=== PATIENT | male | born 1960 | race Caucasian/White ===

== ENCOUNTER 2020-03-17 12:05 | Outpatient (REF) | payer MEDICARE, MEDICAID, SELFPAY ==
[2020-03-17 13:27] LABS: MANUAL DIFF FLAG NO
[2020-03-17 13:39] LABS: Basophils Percent Auto 0.3 % (0-2); Eosinophils Percent Auto 0.7 % (0-4); Hematocrit 45.5 % (42-52); Hemoglobin 15.4 g/dl (14.0-18.0); Imm Gran Abs Auto 0.03 X10*3/uL (0.00-0.03); Imm Gran Pct Auto 0.5 % (0.0-0.4); Lymphocytes Absolute Auto 1.2 X10*3/uL (1.2-4.9); Lymphocytes Percent Auto 19.6 % (20-40); Mean Corpuscular HGB Conc 33.8 g/dl (31.0-36.0); Mean Corpuscular Hemoglobin 31.2 pg (27.0-33.0); Mean Corpuscular Volume 92.1 fL (80-98); Mean Platelet Volume 10.4 fL (9.4-12.4); Monocytes Absolute Auto 0.6 X10*3/uL (0.1-1.2); Monocytes Percent Auto 9.6 % (2-11); Neutrophils Absolute Auto 4.2 X10*3/uL (2.0-8.3); Neutrophils Percent Auto 69.3 % (45-73); Platelet Count 192 X10*3/uL (160-400); Red Blood Count 4.94 X10*6/uL (4.60-5.80); Red Cell Distribution Width 12.5 % (11.0-16.0); White Blood Count 6.1 X10*3/uL (4.8-10.8)
[2020-03-17 13:45] LABS: Estimated Average Glucose 131 mg/dL; Hemoglobin A1c % 6.2 %
[2020-03-17 13:58] LABS: Glucose Urine UA NEG (NEG); Leukocyte Esterase Urine NEG (NEG); Nitrite Urine NEG (NEG); PH 6.5 (5.0-8.0); Specific Gravity - Urine 1.025 (1.005-1.025); Urine Blood NEG (NEG); Urine Ketones NEG (NEG); Urine Protein 2+ MG/DL (NEG-TRACE)
[2020-03-17 14:01] LABS: Appearance Urine HAZY; Color Urine YELLOW
[2020-03-17 14:05] LABS: Alanine Aminotransferase 20 U/L (0-40); Albumin Level 4.8 g/dL (3.5-5.0); Alkaline Phosphatase 38 U/L (39-117); Anion Gap 12 (12-20); Aspartate Amino Transferase 17 U/L (5-37); Bilirubin Total 0.5 mg/dL (0.0-1.0); Blood Urea Nitrogen 11 mg/dL (9-16); Calcium 9.1 mg/dL (8.4-10.2); Carbon Dioxide 27 mmol/L (22-29); Chloride 101 mmol/L (96-108); Cholesterol 194 mg/dL; Estimated Glomerular Filt Rate > 60; Glucose Fasting 132 mg/dL (60-99); HDL Cholesterol 44 mg/dL; LDL Cholesterol Calculated 133 mg/dl; Potassium 4.4 mmol/l (3.3-5.1); Sodium 136 mmol/L (135-145); Total Protein 7.5 g/dL (6.5-8.0); Triglycerides 89 mg/dL
[2020-03-17 14:08] LABS: Mucus Urine 3+ /LPF; RBC Urine 0 /HPF (0); Squamous Epithelial Cell Urine 1+ /LPF; WBC Urine 0 /HPF (0-4)
[2020-03-17 14:28] LABS: TSH reflex Free T4 0.66 mIU/mL (0.32-4.0)
[2020-03-17 14:43] LABS: Creatinine Urine 256.22 mg/dL
[2020-03-17 14:46] LABS: Microalbum/Creatinine Ratio Ur 216.6 ug/mg cr
== END 2020-03-17 12:06 | disposition home or self-care (01) ==
LOC: HO.LAB 12:05
PROVIDERS: Visit Provider Internal Medicine
DX: E11.9 Type 2 diabetes mellitus without complications (principal); I10 Essential (primary) hypertension; E78.5 Hyperlipidemia, unspecified; E87.1 Hypo-osmolality and hyponatremia; F20.3 Undifferentiated schizophrenia; E66.9 Obesity, unspecified; F17.200 Nicotine dependence, unspecified, uncomplicated
CPT/HCPCS: 36415; 80053; 80061; 81001; 82043; 83036; 84443; 85025

== ENCOUNTER 2020-06-13 12:08 | Outpatient (REF) | payer MEDICARE, MEDICAID, SELFPAY ==
[2020-06-13 12:45] LABS: MANUAL DIFF FLAG NO
[2020-06-13 12:50] LABS: Basophils Percent Auto 0.2 % (0-2); Eosinophils Percent Auto 0.9 % (0-4); Hematocrit 42.3 % (42-52); Hemoglobin 14.4 g/dl (14.0-18.0); Imm Gran Abs Auto 0.01 X10*3/uL (0.00-0.03); Imm Gran Pct Auto 0.2 % (0.0-0.4); Lymphocytes Absolute Auto 1.2 X10*3/uL (1.2-4.9); Lymphocytes Percent Auto 27.7 % (20-40); Mean Corpuscular Hemoglobin 31.2 pg (27.0-33.0); Mean Corpuscular Volume 91.6 fL (80-98); Mean Platelet Volume 10.4 fL (9.4-12.4); Monocytes Absolute Auto 0.5 X10*3/uL (0.1-1.2); Monocytes Percent Auto 10.6 % (2-11); Neutrophils Absolute Auto 2.6 X10*3/uL (2.0-8.3); Neutrophils Percent Auto 60.4 % (45-73); Platelet Count 174 X10*3/uL (160-400); Red Blood Count 4.62 X10*6/uL (4.60-5.80); Red Cell Distribution Width 12.5 % (11.0-16.0); White Blood Count 4.3 X10*3/uL (4.8-10.8)
[2020-06-13 13:05] LABS: Glucose Urine UA NEG (NEG); Leukocyte Esterase Urine NEG (NEG); Nitrite Urine NEG (NEG); Specific Gravity - Urine 1.015 (1.005-1.025); Urine Blood NEG (NEG); Urine Ketones NEG (NEG); Urine Protein NEG (NEG-TRACE)
[2020-06-13 13:17] LABS: Appearance Urine CLEAR; Color Urine YELLOW
[2020-06-13 13:30] LABS: Alanine Aminotransferase 15 U/L (0-40); Albumin Level 4.5 g/dL (3.5-5.0); Alkaline Phosphatase 37 U/L (39-117); Anion Gap 11 (12-20); Aspartate Amino Transferase 15 U/L (5-37); Bilirubin Total 0.5 mg/dL (0.0-1.0); Blood Urea Nitrogen 11 mg/dL (9-16); Calcium 8.9 mg/dL (8.4-10.2); Carbon Dioxide 27 mmol/L (22-29); Chloride 103 mmol/L (96-108); Cholesterol 172 mg/dL; Estimated Glomerular Filt Rate > 60; Glucose Fasting 143 mg/dL (60-99); HDL Cholesterol 44 mg/dL; LDL Cholesterol Calculated 116 mg/dl; Potassium 4.3 mmol/L (3.3-5.1); Sodium 137 mmol/L (135-145); Total Protein 7.3 g/dL (6.5-8.0); Triglycerides 63 mg/dL
[2020-06-13 13:31] LABS: Creatinine Urine 72.35 mg/dL; Microalbum/Creatinine Ratio Ur 15.2 ug/mg cr
[2020-06-13 13:54] LABS: TSH reflex Free T4 0.77 uIU/mL (0.32-4.0)
== END 2020-06-13 12:09 | disposition home or self-care (01) ==
LOC: HO.LAB 12:08
PROVIDERS: PCP Internal Medicine; Visit Provider Internal Medicine
DX: I10 Essential (primary) hypertension (principal); E87.1 Hypo-osmolality and hyponatremia; E11.9 Type 2 diabetes mellitus without complications; E78.2 Mixed hyperlipidemia; E66.9 Obesity, unspecified; F17.200 Nicotine dependence, unspecified, uncomplicated
CPT/HCPCS: 36415; 80053; 80061; 81003; 82043; 84443; 85025

== ENCOUNTER 2020-09-11 12:22 | Outpatient (REF) | payer MEDICARE, MEDICAID, SELFPAY ==
[2020-09-11 13:09] LABS: MANUAL DIFF FLAG NO
[2020-09-11 13:11] LABS: Glucose Urine UA NEG (NEG); Leukocyte Esterase Urine NEG (NEG); Nitrite Urine NEG (NEG); Urine Blood NEG (NEG); Urine Ketones NEG (NEG); Urine Protein NEG (NEG-TRACE)
[2020-09-11 13:14] LABS: Appearance Urine CLEAR; Color Urine YELLOW
[2020-09-11 13:20] LABS: Basophils Percent Auto 0.2 % (0-2); Eosinophils Percent Auto 0.7 % (0-4); Hematocrit 42.7 % (42-52); Hemoglobin 14.5 g/dl (14.0-18.0); Imm Gran Abs Auto 0.02 X10*3/uL (0.00-0.03); Imm Gran Pct Auto 0.4 % (0.0-0.4); Lymphocytes Absolute Auto 0.9 X10*3/uL (1.2-4.9); Lymphocytes Percent Auto 16.3 % (20-40); Mean Corpuscular Hemoglobin 30.9 pg (27.0-33.0); Mean Corpuscular Volume 90.9 fL (80-98); Mean Platelet Volume 10.6 fL (9.4-12.4); Monocytes Absolute Auto 0.6 X10*3/uL (0.1-1.2); Monocytes Percent Auto 10.8 % (2-11); Neutrophils Absolute Auto 3.9 X10*3/uL (2.0-8.3); Neutrophils Percent Auto 71.6 % (45-73); Platelet Count 144 X10*3/uL (160-400); Red Cell Distribution Width 12.5 % (11.0-16.0); White Blood Count 5.5 X10*3/uL (4.8-10.8)
[2020-09-11 13:30] LABS: Alanine Aminotransferase 15 U/L (0-40); Albumin Level 4.3 g/dL (3.5-5.0); Alkaline Phosphatase 38 U/L (39-117); Anion Gap 10 (12-20); Aspartate Amino Transferase 13 U/L (5-37); Bilirubin Total 0.7 mg/dL (0.0-1.0); Blood Urea Nitrogen 11 mg/dL (9-16); Calcium 9.5 mg/dL (8.4-10.2); Carbon Dioxide 28 mmol/L (22-29); Chloride 98 mmol/L (96-108); Cholesterol 171 mg/dL; Estimated Glomerular Filt Rate > 60; Glucose Fasting 144 mg/dL (60-99); HDL Cholesterol 44 mg/dL; LDL Cholesterol Calculated 108 mg/dl; Sodium 132 mmol/L (135-145); Total Protein 7.1 g/dL (6.5-8.0); Triglycerides 98 mg/dL
[2020-09-11 13:48] LABS: Estimated Average Glucose 137 mg/dL; Hemoglobin A1c % 6.4 %
[2020-09-11 13:53] LABS: TSH reflex Free T4 0.59 uIU/mL (0.32-4.0); Vitamin D 25-OH Total 30.9 ng/mL (>30)
[2020-09-11 13:59] LABS: Creatinine Urine 98.16 mg/dL; Microalbum/Creatinine Ratio Ur 30.5 ug/mg cr
== END 2020-09-11 12:23 | disposition home or self-care (01) ==
LOC: HO.LAB 12:22
PROVIDERS: PCP Internal Medicine; Visit Provider Internal Medicine
DX: I10 Essential (primary) hypertension (principal); F20.9 Schizophrenia, unspecified; E87.1 Hypo-osmolality and hyponatremia; E11.9 Type 2 diabetes mellitus without complications; E78.2 Mixed hyperlipidemia; E66.9 Obesity, unspecified; E55.9 Vitamin D deficiency, unspecified; F17.200 Nicotine dependence, unspecified, uncomplicated
CPT/HCPCS: 36415; 80053; 80061; 81003; 82043; 82306; 83036; 84443; 85025

== ENCOUNTER 2020-12-26 11:56 | Outpatient (REF) | payer MEDICARE, MEDICAID, SELFPAY ==
[2020-12-26 13:15] LABS: MANUAL DIFF FLAG NO
[2020-12-26 13:25] LABS: Appearance Urine CLEAR; Color Urine YELLOW; Glucose Urine UA NEG (NEG); Leukocyte Esterase Urine NEG (NEG); Nitrite Urine NEG (NEG); PH 7.5 (5.0-8.0); Urine Blood NEG (NEG); Urine Ketones NEG (NEG); Urine Protein TRACE MG/DL (NEG-TRACE)
[2020-12-26 13:29] LABS: Basophils Percent Auto 0.2 % (0-2); Eosinophils Absolute Auto 0.1 X10*3/uL (0.0-0.4); Eosinophils Percent Auto 1.2 % (0-4); Hematocrit 41.4 % (42-52); Hemoglobin 14.1 g/dl (14.0-18.0); Imm Gran Abs Auto 0.01 X10*3/uL (0.00-0.03); Imm Gran Pct Auto 0.2 % (0.0-0.4); Lymphocytes Absolute Auto 1.2 X10*3/uL (1.2-4.9); Lymphocytes Percent Auto 21.6 % (20-40); Mean Corpuscular HGB Conc 34.1 g/dl (31.0-36.0); Mean Corpuscular Hemoglobin 30.9 pg (27.0-33.0); Mean Corpuscular Volume 90.6 fL (80-98); Monocytes Absolute Auto 0.6 X10*3/uL (0.1-1.2); Neutrophils Absolute Auto 3.8 X10*3/uL (2.0-8.3); Neutrophils Percent Auto 66.8 % (45-73); Platelet Count 186 X10*3/uL (160-400); Red Blood Count 4.57 X10*6/uL (4.60-5.80); Red Cell Distribution Width 13.2 % (11.0-16.0); White Blood Count 5.6 X10*3/uL (4.8-10.8)
[2020-12-26 13:36] LABS: Estimated Average Glucose 120 mg/dL; Hemoglobin A1c % 5.8 %
[2020-12-26 13:37] LABS: Alanine Aminotransferase 11 U/L (0-40); Albumin Level 4.4 g/dL (3.5-5.0); Alkaline Phosphatase 37 U/L (39-117); Anion Gap 14 (12-20); Aspartate Amino Transferase 13 U/L (5-37); Bilirubin Total 0.6 mg/dL (0.0-1.0); Blood Urea Nitrogen 13 mg/dL (9-16); Calcium 9.6 mg/dL (8.4-10.2); Carbon Dioxide 22 mmol/L (22-29); Chloride 105 mmol/L (96-108); Cholesterol 158 mg/dL; Estimated Glomerular Filt Rate 60; Glucose Fasting 144 mg/dL (60-99); HDL Cholesterol 37 mg/dL; LDL Cholesterol Calculated 104 mg/dl; Potassium 4.1 mmol/L (3.3-5.1); Sodium 137 mmol/L (135-145); Total Protein 7.3 g/dL (6.5-8.0); Triglycerides 89 mg/dL
[2020-12-26 14:01] LABS: TSH reflex Free T4 0.74 uIU/mL (0.32-4.0); Vitamin D 25-OH Total 34.2 ng/mL (>30)
[2020-12-26 14:28] LABS: Creatinine Urine 101.25 mg/dL; Microalbum/Creatinine Ratio Ur 97.7 ug/mg cr
== END 2020-12-26 11:57 | disposition home or self-care (01) ==
LOC: HO.LAB 11:56
PROVIDERS: PCP Internal Medicine; Visit Provider Internal Medicine
DX: E11.9 Type 2 diabetes mellitus without complications (principal); I10 Essential (primary) hypertension; E78.2 Mixed hyperlipidemia; E87.1 Hypo-osmolality and hyponatremia; E66.9 Obesity, unspecified; F17.200 Nicotine dependence, unspecified, uncomplicated; E55.9 Vitamin D deficiency, unspecified
CPT/HCPCS: 36415; 80053; 80061; 81003; 82043; 82306; 83036; 84443; 85025

== ENCOUNTER 2021-01-07 15:29 | Outpatient (REF) | payer MEDICARE, MEDICAID, SELFPAY ==
--- NOTE | ~2021-01-07 | XR_ITS ---
EXAMINATION: XR SHOULDER, RIGHT CLINICAL INFORMATION: Right shoulder pain. COMPARISON: None TECHNIQUE: AP external rotation, Grashey, scapular Y, and axillary views of the right shoulder. FINDINGS: Acromioclavicular marginal osteophytes with tiny lateral subacromial spurs. No glenohumeral joint space narrowing or marginal osteophytes. No acute fracture or dislocation. No osseous erosion. No abnormal soft tissue calcification. XR/XR shoulder RT min 2V IMPRESSION: Moderate acromioclavicular osteoarthritis with small subacromial spurs.
== END 2021-01-07 15:30 | disposition home or self-care (01) ==
LOC: HO.XRAY 15:29
PROVIDERS: PCP Internal Medicine; Visit Provider Internal Medicine
DX: M25.511 Pain in right shoulder (principal)
CPT/HCPCS: 73030

== ENCOUNTER 2021-03-30 15:36 | Outpatient (REF) | payer MEDICARE, MEDICAID, SELFPAY ==
[2021-03-30 17:24] LABS: Vitamin B12 528 pg/mL (200-900)
[2021-03-31 09:00] LABS: Lyme Abs Screen <0.90 index
[2021-04-01 08:32] LABS: Syphilis Screen Nonreactive (Nonreactive)
== END 2021-03-30 15:37 | disposition home or self-care (01) ==
LOC: HO.LAB 15:36
PROVIDERS: PCP Internal Medicine; Visit Provider Psychiatry & Neurology Neurology
DX: G20 Parkinson's disease (principal)
CPT/HCPCS: 36415; 82607; 86617; 86618; 86780

== ENCOUNTER 2021-04-03 11:12 | Outpatient (REF) | payer MEDICARE, MEDICAID, SELFPAY ==
[2021-04-03 11:27] LABS: MANUAL DIFF FLAG NO
[2021-04-03 12:05] LABS: Basophils Percent Auto 0.2 % (0-2); Eosinophils Absolute Auto 0.1 X10*3/uL (0.0-0.4); Eosinophils Percent Auto 1.7 % (0-4); Hematocrit 44.2 % (42.0-52.0); Hemoglobin 14.9 g/dl (14.0-18.0); Imm Gran Abs Auto 0.01 X10*3/uL (0.00-0.03); Imm Gran Pct Auto 0.2 % (0.0-0.4); Lymphocytes Absolute Auto 1.3 X10*3/uL (1.2-4.9); Lymphocytes Percent Auto 26.7 % (20-40); Mean Corpuscular HGB Conc 33.7 g/dl (31.0-36.0); Mean Corpuscular Volume 91.9 fL (80.0-98.0); Mean Platelet Volume 10.9 fL (9.4-12.4); Monocytes Absolute Auto 0.5 X10*3/uL (0.1-1.2); Monocytes Percent Auto 10.3 % (2-11); Neutrophils Absolute Auto 2.9 x10*3/uL (2.0-8.3); Neutrophils Percent Auto 60.9 % (45-73); Platelet Count 172 X10*3/uL (160-400); Red Blood Count 4.81 X10*6/uL (4.60-5.80); Red Cell Distribution Width 12.5 % (11.0-16.0); White Blood Count 4.8 X10*3/uL (4.8-10.8)
[2021-04-03 12:14] LABS: Estimated Average Glucose 126 mg/dL
[2021-04-03 12:40] LABS: Alanine Aminotransferase < 6 U/L (0-40); Albumin Level 4.4 g/dL (3.5-5.0); Alkaline Phosphatase 41 U/L (39-117); Anion Gap 12 (12-20); Aspartate Amino Transferase 14 U/L (5-37); Bilirubin Total 0.7 mg/dL (0.0-1.0); Blood Urea Nitrogen 11 mg/dL (9-16); Calcium 9.8 mg/dL (8.4-10.2); Carbon Dioxide 27 mmol/L (22-29); Chloride 104 mmol/L (96-108); Cholesterol 167 mg/dL; Estimated Glomerular Filt Rate > 60; Glucose Fasting 152 mg/dL (60-99); HDL Cholesterol 42 mg/dL; LDL Cholesterol Calculated 103 mg/dl; Sodium 139 mmol/L (135-145); Total Protein 7.4 g/dL (6.5-8.0); Triglycerides 110 mg/dL
[2021-04-03 12:58] LABS: TSH reflex Free T4 1.09 uIU/mL (0.32-4.0); Vitamin D 25-OH Total 34.4 ng/mL (>30)
[2021-04-03 12:59] LABS: Appearance Urine CLEAR; Color Urine YELLOW; Glucose Urine UA NEG (NEG); Leukocyte Esterase Urine NEG (NEG); Nitrite Urine NEG (NEG); Specific Gravity - Urine >= 1.030 (1.005-1.025); Urine Blood NEG (NEG); Urine Ketones NEG (NEG); Urine Protein NEG (NEG-TRACE)
[2021-04-03 13:21] LABS: Creatinine Urine 76.48 mg/dL; Microalbum/Creatinine Ratio Ur 103.2 ug/mg cr
== END 2021-04-03 11:13 | disposition home or self-care (01) ==
LOC: HO.LAB 11:12
PROVIDERS: PCP Internal Medicine; Visit Provider Internal Medicine
DX: E78.00 Pure hypercholesterolemia, unspecified (principal); E55.9 Vitamin D deficiency, unspecified; I10 Essential (primary) hypertension; E11.9 Type 2 diabetes mellitus without complications
CPT/HCPCS: 36415; 80053; 80061; 81003; 82043; 82306; 83036; 84443; 85025

== ENCOUNTER 2021-04-06 15:47 | Outpatient (REF) | payer MEDICARE, MEDICAID, SELFPAY ==
--- NOTE | ~2021-04-06 | MR_ITS ---
EXAMINATION: MR BRAIN WITHOUT CONTRAST CLINICAL INFORMATION: Parkinsonism and weakness. Right-sided hearing loss. Tinnitus. Hand tremors. COMPARISON: None. TECHNIQUE: Multiplanar, multisequence imaging of the brain was performed without contrast. FINDINGS: No diffusion abnormalities are identified to suggest an acute infarct. No imaging findings of hydrocephalus. No mass effect or midline shift is seen. Very mild chronic white matter microangiopathic changes noted. Mild to moderate generalized parenchymal volume loss and concordant ex vacuo dilatation of the ventricles noted. No extra-axial fluid collections are seen. The brainstem and cerebellum are normal. The gradient refocused acquisition is normal. The craniovertebral junction, marrow signal, and midline structures are normal. The major intracranial flow voids at the level of the [place] of [place] are preserved. The dural venous sinus flow voids are maintained. The mastoid air cells and paranasal sinuses are well aerated. MR/MR head/brain wo con IMPRESSION: No acute process. Very mild chronic white matter microangiopathic changes and generalized parenchymal volume loss.
== END 2021-04-06 15:48 | disposition home or self-care (01) ==
LOC: HO.MRI 15:47
PROVIDERS: Visit Provider Psychiatry & Neurology Neurology
DX: G20 Parkinson's disease (principal); R53.1 Weakness; H91.91 Unspecified hearing loss, right ear; H93.19 Tinnitus, unspecified ear; G25.2 Other specified forms of tremor
CPT/HCPCS: 70551

== ENCOUNTER 2021-08-07 11:45 | Outpatient (REF) | payer MEDICARE, MEDICAID, SELFPAY ==
[2021-08-07 12:01] LABS: MANUAL DIFF FLAG NO
[2021-08-07 12:14] LABS: Basophils Percent Auto 0.2 % (0-2); Eosinophils Percent Auto 0.6 % (0-4); Hematocrit 45.1 % (42.0-52.0); Hemoglobin 15.6 g/dl (14.0-18.0); Imm Gran Abs Auto 0.01 X10*3/uL (0.00-0.03); Imm Gran Pct Auto 0.2 % (0.0-0.4); Lymphocytes Absolute Auto 1.1 X10*3/uL (1.2-4.9); Mean Corpuscular HGB Conc 34.6 g/dl (31.0-36.0); Mean Corpuscular Hemoglobin 31.5 pg (27.0-33.0); Mean Corpuscular Volume 90.9 fL (80.0-98.0); Mean Platelet Volume 10.5 fL (9.4-12.4); Monocytes Absolute Auto 0.5 X10*3/uL (0.1-1.2); Monocytes Percent Auto 10.4 % (2-11); Neutrophils Absolute Auto 3.2 x10*3/uL (2.0-8.3); Neutrophils Percent Auto 65.6 % (45-73); Platelet Count 185 X10*3/uL (160-400); Red Blood Count 4.96 X10*6/uL (4.60-5.80); Red Cell Distribution Width 12.7 % (11.0-16.0); White Blood Count 4.8 X10*3/uL (4.8-10.8)
[2021-08-07 12:24] LABS: Appearance Urine CLEAR; Color Urine YELLOW; Glucose Urine UA NEG (NEG); Leukocyte Esterase Urine NEG (NEG); Nitrite Urine NEG (NEG); PH 6.5 (5.0-8.0); UACC Culture Trigger NO; Urine Blood NEG (NEG); Urine Ketones NEG (NEG); Urine Protein 2+ MG/DL (NEG-TRACE)
[2021-08-07 12:40] LABS: Estimated Average Glucose 128 mg/dL; Hemoglobin A1c % 6.1 %
[2021-08-07 12:43] LABS: Creatinine Urine 130.61 mg/dL; Microalbum/Creatinine Ratio Ur 365.9 ug/mg cr
[2021-08-07 12:47] LABS: Alanine Aminotransferase 17 U/L (0-40); Albumin Level 4.4 g/dL (3.5-5.0); Alkaline Phosphatase 36 U/L (39-117); Anion Gap 12 (12-20); Aspartate Amino Transferase 14 U/L (5-37); Bilirubin Total 0.6 mg/dL (0.0-1.0); Blood Urea Nitrogen 12 mg/dL (9-16); Calcium 9.5 mg/dL (8.4-10.2); Carbon Dioxide 26 mmol/L (22-29); Chloride 103 mmol/L (96-108); Cholesterol 172 mg/dL; Estimated Glomerular Filt Rate > 60; Glucose Fasting 172 mg/dL (60-99); HDL Cholesterol 41 mg/dL; LDL Cholesterol Calculated 114 mg/dl; Potassium 4.6 mmol/L (3.3-5.1); Sodium 136 mmol/L (135-145); Total Protein 7.3 g/dL (6.5-8.0); Triglycerides 86 mg/dL
[2021-08-07 13:02] LABS: TSH reflex Free T4 0.93 uIU/mL (0.32-4.0); Vitamin D 25-OH Total 35.8 ng/mL (>30)
[2021-08-07 13:19] LABS: Mucus Urine 1+ /LPF; RBC Urine 0 /HPF (0); WBC Urine 0-2 /HPF (0-4)
== END 2021-08-07 11:46 | disposition home or self-care (01) ==
LOC: HO.LAB 11:45
PROVIDERS: PCP Internal Medicine; Visit Provider Internal Medicine
DX: E78.00 Pure hypercholesterolemia, unspecified (principal); E55.9 Vitamin D deficiency, unspecified; E11.9 Type 2 diabetes mellitus without complications; I10 Essential (primary) hypertension
CPT/HCPCS: 36415; 80053; 80061; 81001; 82043; 82306; 83036; 84443; 85025

== ENCOUNTER 2021-11-10 11:03 | Outpatient (REF) | payer MEDICARE, MEDICAID, SELFPAY ==
[2021-11-10 11:25] LABS: MANUAL DIFF FLAG NO
[2021-11-10 12:09] LABS: Basophils Percent Auto 0.2 % (0-2); Eosinophils Percent Auto 0.9 % (0-4); Hematocrit 42.6 % (42.0-52.0); Imm Gran Abs Auto 0.02 X10*3/uL (0.00-0.03); Imm Gran Pct Auto 0.4 % (0.0-0.4); Lymphocytes Absolute Auto 1.2 X10*3/uL (1.2-4.9); Lymphocytes Percent Auto 25.2 % (20-40); Mean Corpuscular HGB Conc 35.2 g/dl (31.0-36.0); Mean Corpuscular Hemoglobin 32.3 pg (27.0-33.0); Mean Corpuscular Volume 91.8 fL (80.0-98.0); Mean Platelet Volume 10.9 fL (9.4-12.4); Monocytes Absolute Auto 0.5 X10*3/uL (0.1-1.2); Monocytes Percent Auto 9.8 % (2-11); Neutrophils Percent Auto 63.5 % (45-73); Platelet Count 174 X10*3/uL (160-400); Red Blood Count 4.64 X10*6/uL (4.60-5.80); Red Cell Distribution Width 12.7 % (11.0-16.0); White Blood Count 4.7 X10*3/uL (4.8-10.8)
[2021-11-10 12:37] LABS: Estimated Average Glucose 120 mg/dL; Hemoglobin A1c % 5.8 %
[2021-11-10 12:39] LABS: Alanine Aminotransferase 14 U/L (0-40); Albumin Level 4.4 g/dL (3.5-5.0); Alkaline Phosphatase 33 U/L (39-117); Anion Gap 11 (12-20); Aspartate Amino Transferase 15 U/L (5-37); Bilirubin Total 0.5 mg/dL (0.0-1.0); Blood Urea Nitrogen 9 mg/dL (9-16); Calcium 8.9 mg/dL (8.4-10.2); Carbon Dioxide 24 mmol/L (22-29); Chloride 105 mmol/L (96-108); Cholesterol 153 mg/dL; Estimated Glomerular Filt Rate > 60; Glucose Fasting 134 mg/dL (60-99); HDL Cholesterol 37 mg/dL; LDL Cholesterol Calculated 97 mg/dl; Potassium 4.1 mmol/L (3.3-5.1); Sodium 136 mmol/L (135-145); Total Protein 7.2 g/dL (6.5-8.0); Triglycerides 98 mg/dL
[2021-11-10 13:02] LABS: TSH reflex Free T4 0.78 uIU/mL (0.32-4.0); Vitamin D 25-OH Total 32.5 ng/mL (>30)
[2021-11-10 13:20] LABS: Appearance Urine CLEAR; Color Urine YELLOW; Glucose Urine UA NEG (NEG); Leukocyte Esterase Urine NEG (NEG); Nitrite Urine NEG (NEG); Urine Blood NEG (NEG); Urine Ketones NEG (NEG); Urine Protein NEG (NEG-TRACE)
[2021-11-10 13:57] LABS: Creatinine Urine 68.22 mg/dL; Microalbum/Creatinine Ratio Ur 38.1 ug/mg cr
== END 2021-11-10 11:04 | disposition home or self-care (01) ==
LOC: HO.LAB 11:03
PROVIDERS: PCP Internal Medicine; Visit Provider Internal Medicine
DX: E78.00 Pure hypercholesterolemia, unspecified (principal); E11.9 Type 2 diabetes mellitus without complications; E55.9 Vitamin D deficiency, unspecified; I10 Essential (primary) hypertension
CPT/HCPCS: 36415; 80053; 80061; 81003; 82043; 82306; 83036; 84443; 85025

== ENCOUNTER 2022-03-15 11:02 | Outpatient (REF) | payer MEDICARE, MEDICAID, SELFPAY ==
[2022-03-15 11:16] LABS: MANUAL DIFF FLAG NO
[2022-03-15 11:39] LABS: Appearance Urine Clear; Color Urine Yellow; Glucose Urine UA Negative (Negative); Leukocyte Esterase Urine Negative (Negative); Nitrite Urine Negative (Negative); PH 6.5 (5.0-9.0); Specific Gravity - Urine 1.015 (1.005-1.025); Urine Blood Negative (Negative); Urine Ketones Negative (Negative); Urine Protein Negative (Neg-Trace)
[2022-03-15 11:39] LABS: Eosinophils Percent Auto 0.8 % (0-4); Hematocrit 41.9 % (42.0-52.0); Hemoglobin 14.5 g/dl (14.0-18.0); Imm Gran Abs Auto 0.02 X10*3/uL (0.00-0.03); Imm Gran Pct Auto 0.4 % (0.0-0.4); Lymphocytes Absolute Auto 1.1 X10*3/uL (1.2-4.9); Lymphocytes Percent Auto 22.9 % (20-40); Mean Corpuscular HGB Conc 34.6 g/dl (31.0-36.0); Mean Corpuscular Hemoglobin 31.9 pg (27.0-33.0); Mean Corpuscular Volume 92.3 fL (80.0-98.0); Mean Platelet Volume 10.5 fL (9.4-12.4); Monocytes Absolute Auto 0.5 X10*3/uL (0.1-1.2); Monocytes Percent Auto 10.4 % (2-11); Neutrophils Absolute Auto 3.2 x10*3/uL (2.0-8.3); Neutrophils Percent Auto 65.5 % (45-73); Platelet Count 167 X10*3/uL (160-400); Red Blood Count 4.54 X10*6/uL (4.60-5.80); White Blood Count 4.8 X10*3/uL (4.8-10.8)
[2022-03-15 11:46] LABS: Estimated Average Glucose 120 mg/dL; Hemoglobin A1C 149.0732 umol/L; Hemoglobin A1c % 5.8 %
[2022-03-15 12:45] LABS: TSH reflex Free T4 0.51 uIU/mL (0.32-4.0)
[2022-03-15 12:52] LABS: Creatinine Urine 86.96 mg/dL; Microalbum/Creatinine Ratio Ur 10.3 ug/mg cr
[2022-03-15 12:59] LABS: Alanine Aminotransferase 6 U/L (0-40); Albumin Level 4.5 g/dL (3.5-5.0); Alkaline Phosphatase 37 U/L (39-117); Anion Gap 13 (12-20); Aspartate Amino Transferase 14 U/L (5-37); Bilirubin Total 0.6 mg/dL (0.0-1.0); Blood Urea Nitrogen 11 mg/dL (9-16); Calcium 9.4 mg/dL (8.4-10.2); Carbon Dioxide 25 mmol/L (22-29); Chloride 100 mmol/L (96-108); Cholesterol 159 mg/dL; Estimated Glomerular Filt Rate > 60; Glucose Fasting 127 mg/dL (60-99); HDL Cholesterol 45 mg/dL; LDL Cholesterol Calculated 103 mg/dl; Potassium 4.4 mmol/L (3.3-5.1); Sodium 134 mmol/L (135-145); Total Protein 7.3 g/dL (6.5-8.0); Triglycerides 57 mg/dL
== END 2022-03-15 11:03 | disposition home or self-care (01) ==
LOC: HO.LAB 11:02
PROVIDERS: PCP Internal Medicine; Visit Provider Internal Medicine
DX: E55.9 Vitamin D deficiency, unspecified (principal); I10 Essential (primary) hypertension; E78.00 Pure hypercholesterolemia, unspecified; E11.9 Type 2 diabetes mellitus without complications
CPT/HCPCS: 36415; 80053; 80061; 81003; 82043; 82306; 83036; 84443; 85025

== ENCOUNTER 2022-06-18 11:32 | Outpatient (REF) | payer MEDICARE, MEDICAID, SELFPAY ==
[2022-06-18 12:00] LABS: MANUAL DIFF FLAG NO
[2022-06-18 12:30] LABS: Basophils Percent Auto 0.2 % (0-2); Eosinophils Percent Auto 0.7 % (0-4); Hematocrit 43.2 % (42.0-52.0); Hemoglobin 14.8 g/dl (14.0-18.0); Imm Gran Abs Auto 0.02 X10*3/uL (0.00-0.03); Imm Gran Pct Auto 0.4 % (0.0-0.4); Lymphocytes Absolute Auto 1.1 X10*3/uL (1.2-4.9); Lymphocytes Percent Auto 24.1 % (20-40); Mean Corpuscular HGB Conc 34.3 g/dl (31.0-36.0); Mean Corpuscular Hemoglobin 31.4 pg (27.0-33.0); Mean Corpuscular Volume 91.7 fL (80.0-98.0); Mean Platelet Volume 10.3 fL (9.4-12.4); Monocytes Absolute Auto 0.5 X10*3/uL (0.1-1.2); Monocytes Percent Auto 11.2 % (2-11); Neutrophils Absolute Auto 2.9 x10*3/uL (2.0-8.3); Neutrophils Percent Auto 63.4 % (45-73); Platelet Count 197 X10*3/uL (160-400); Red Blood Count 4.71 X10*6/uL (4.60-5.80); Red Cell Distribution Width 12.8 % (11.0-16.0); White Blood Count 4.6 X10*3/uL (4.8-10.8)
[2022-06-18 12:39] LABS: Estimated Average Glucose 123 mg/dL; Hemoglobin A1c % 5.9 %
[2022-06-18 13:07] LABS: Alanine Aminotransferase 16 U/L (0-40); Albumin Level 4.4 g/dL (3.5-5.0); Alkaline Phosphatase 38 U/L (39-117); Anion Gap 13 (12-20); Aspartate Amino Transferase 14 U/L (5-37); Bilirubin Total 0.5 mg/dL (0.0-1.0); Blood Urea Nitrogen 12 mg/dL (9-16); Calcium 9.1 mg/dL (8.4-10.2); Carbon Dioxide 25 mmol/L (22-29); Chloride 101 mmol/L (96-108); Cholesterol 160 mg/dL; Estimated Glomerular Filt Rate > 60; Glucose Fasting 140 mg/dL (60-99); HDL Cholesterol 46 mg/dL; LDL Cholesterol Calculated 104 mg/dl; Potassium 4.7 mmol/L (3.3-5.1); Sodium 134 mmol/L (135-145); Total Protein 7.2 g/dL (6.5-8.0); Triglycerides 54 mg/dL
[2022-06-18 13:13] LABS: Appearance Urine Clear; Color Urine Yellow; Glucose Urine UA Negative (Negative); Leukocyte Esterase Urine Negative (Negative); Nitrite Urine Negative (Negative); PH 6.5 (5.0-9.0); Specific Gravity - Urine 1.015 (1.005-1.025); Urine Blood Negative (Negative); Urine Ketones Negative (Negative); Urine Protein Negative (Neg-Trace)
[2022-06-18 13:26] LABS: TSH reflex Free T4 0.65 uIU/mL (0.32-4.0); Vitamin D 25-OH Total 37.3 ng/mL (>30)
[2022-06-18 13:58] LABS: Creatinine Urine 109.47 mg/dL; Microalbum/Creatinine Ratio Ur 22.8 ug/mg cr
== END 2022-06-18 11:33 | disposition home or self-care (01) ==
LOC: HO.LAB 11:32
PROVIDERS: PCP Internal Medicine; Visit Provider Internal Medicine
DX: E11.9 Type 2 diabetes mellitus without complications (principal); E55.9 Vitamin D deficiency, unspecified; E78.00 Pure hypercholesterolemia, unspecified; R30.0 Dysuria; I10 Essential (primary) hypertension
CPT/HCPCS: 36415; 80053; 80061; 81003; 82043; 82306; 83036; 84443; 85025

== ENCOUNTER 2022-11-27 10:07 | Outpatient (REF) | payer MEDICARE, MEDICAID, SELFPAY ==
[2022-11-27 10:18] LABS: MANUAL DIFF FLAG NO
[2022-11-27 11:07] LABS: Appearance Urine Clear; Color Urine Yellow; Glucose Urine UA Negative (Negative); Leukocyte Esterase Urine Negative (Negative); Nitrite Urine Negative (Negative); PH 6.5 (5.0-9.0); Specific Gravity - Urine 1.015 (1.005-1.025); Urine Blood Negative (Negative); Urine Ketones Negative (Negative); Urine Protein Negative (Neg-Trace)
[2022-11-27 11:11] LABS: Basophils Percent Auto 0.2 % (0-2); Eosinophils Percent Auto 0.8 % (0-4); Hematocrit 42.5 % (42.0-52.0); Hemoglobin 14.6 g/dl (14.0-18.0); Imm Gran Abs Auto 0.01 X10*3/uL (0.00-0.03); Imm Gran Pct Auto 0.2 % (0.0-0.4); Lymphocytes Absolute Auto 1.2 X10*3/uL (1.2-4.9); Lymphocytes Percent Auto 25.9 % (20-40); Mean Corpuscular HGB Conc 34.4 g/dl (31.0-36.0); Mean Corpuscular Hemoglobin 31.3 pg (27.0-33.0); Mean Platelet Volume 10.5 fL (9.4-12.4); Monocytes Absolute Auto 0.5 X10*3/uL (0.1-1.2); Neutrophils Absolute Auto 2.9 x10*3/uL (2.0-8.3); Neutrophils Percent Auto 61.9 % (45-73); Platelet Count 186 X10*3/uL (160-400); Red Blood Count 4.67 X10*6/uL (4.60-5.80); Red Cell Distribution Width 12.8 % (11.0-16.0); White Blood Count 4.7 X10*3/uL (4.8-10.8)
[2022-11-27 11:31] LABS: Alanine Aminotransferase 16 U/L (0-40); Albumin Level 4.4 g/dL (3.5-5.0); Alkaline Phosphatase 34 U/L (39-117); Anion Gap 17 (12-20); Aspartate Amino Transferase 15 U/L (5-37); Bilirubin Total 0.7 mg/dL (0.0-1.0); Blood Urea Nitrogen 11 mg/dL (9-16); Calcium 9.5 mg/dL (8.4-10.2); Carbon Dioxide 20 mmol/L (22-29); Chloride 99 mmol/L (96-108); Cholesterol 152 mg/dL; Estimated Glomerular Filt Rate > 60; Glucose Fasting 127 mg/dL (60-99); HDL Cholesterol 38 mg/dL; LDL Cholesterol Calculated 102 mg/dl; Potassium 4.1 mmol/L (3.3-5.1); Sodium 132 mmol/L (135-145); Total Protein 7.6 g/dL (6.5-8.0); Triglycerides 62 mg/dL
[2022-11-27 11:35] LABS: Creatinine Urine 134.62 mg/dL; Microalbum/Creatinine Ratio Ur 12.6 ug/mg cr
[2022-11-27 11:45] LABS: TSH reflex Free T4 0.56 uIU/mL (0.32-4.0); Vitamin D 25-OH Total 39.1 ng/mL (>30)
[2022-11-27 11:51] LABS: Estimated Average Glucose 111 mg/dL; Hemoglobin A1c % 5.5 %
== END 2022-11-27 10:08 | disposition home or self-care (01) ==
LOC: HO.LAB 10:07
PROVIDERS: PCP Internal Medicine; Visit Provider Internal Medicine
DX: R30.0 Dysuria (principal); I10 Essential (primary) hypertension; E55.9 Vitamin D deficiency, unspecified; E78.00 Pure hypercholesterolemia, unspecified; E11.9 Type 2 diabetes mellitus without complications
CPT/HCPCS: 36415; 80053; 80061; 81003; 82043; 82306; 83036; 84443; 85025

== ENCOUNTER 2022-11-29 15:42 | Outpatient (AMB) | payer MEDICARE, MEDICAID, SELFPAY ==
[2022-11-29 15:44] VITALS: BP 118/78; PULSE 67; O2SAT 98; BMI 30.4
--- NOTE | 2022-11-29 15:44 | MHC.PC.OV ---
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 Accompanied by: Self / Same As Patient Allergies haloperidol [From HALDOL] Allergy (Intermediate, Verified 11/29/22 16:33) BODY STIFF aspirin [ASA] Allergy (Unknown, Verified 11/29/22 16:33) UNKNOWN glyburide [GLYBURIDE] Allergy (Unknown, Verified 11/29/22 16:33) UNKNOWN Medication List - Last Reconciled 11/29/22 by Dannie Richard MD carbidopa-levodopa 25-100 mg tabs PO TID cholecalciferol (vitamin D3) 25 mcg PO DAILY fenofibrate nanocrystallized 145 mg PO DAILY 90 days lisinopril 5 mg PO DAILY 90 days omega-3 fatty acids (Fish Oil Concentrate) 1,000 mg PO TID risperidone 4 mg PO QPM risperidone 3 mg PO QAM sitagliptin phosphate (Januvia) 50 mg PO DAILY 90 days terazosin 1 mg PO BEDTIME 90 days Tobacco use date assessed: 11/29/22 Fall risk assessment: No Falls in past year Last assessed Fall Risk: 11/29/22 Dental Screening Dental Screen Date: 11/29/22 Did you have a dental visit in the last 12 months?: No Did you have a dental problem in the last 6 months where you did not have access to dental care?: No Was dental information given to patient?: No HPI 4m F/u Parkinson's, hyperlipidemia, DM, , HTN HPI Details Patient comes in today for his follow up visit His sister states that patient has been drinking coffee a lot more than normal at night lately Patient admits that he has also been smoking more lately and has been going to the bathroom at night more than usual He denies any headaches or dizziness Denies any chest pains, no SOB No nausea/vomiting, no abdominal pain No change in bowel habits noted Had his follow up labs done a couple of days ago - to discuss his results FOR[facility]LY [facility], [facility] Medical History Benign essential hypertension Diabetes mellitus Hyponatremia Mixed hyperlipidemia Obesity (BMI 30-39.9) Parkinson's disease Primary osteoarthritis, right shoulder Schizophrenia Smoker Vitamin D deficiency Surgical History History of eye surgery Family History Father CVD (cardiovascular disease) Cancer Mother Cancer CVD (cardiovascular disease) Stroke Other Mental health problem Social History Housing: House Alcohol intake: former Patient Tobacco Use Status: Current everyday Tobacco user Cigarettes Per Day: 16 e-Cigarette/Vaping Use: Never Used Second Hand Smoke Exposure: Yes service: No Current occupational status: disabled Cognitive needs: Yes (Parkinson's disease) Hearing needs: No Vision needs: No Questionnaire PHQ-9 Over the last 2 weeks, how often have you been bothered by any of the following problems? 1. Little interest or pleasure in doing things: not at all 2. Feeling down, depressed, or hopeless: not at all 3. Trouble falling or staying asleep, or sleeping too much: not at all 4. Feeling tired or having little energy: not at all 5. Poor appetite or overeating: not at all 6. Feeling bad about yourself - or that you are a failure or have let yourself or your family down: not at all 7. Trouble concentrating on things, such as reading the newspaper or watching television: not at all 8. Moving or speaking so slowly that other people could have noticed. Or the opposite - being so fidgety or restless that you have been moving around a lot more than usual: not at all 9. Thoughts that you would be better off or of hurting yourself in some way: not at all Total score: 0 Depression Screening Interpretation: Negative 58321 - PHQ-9 Billing: Yes Source: Developed by Drs. Be Ortiz, Rubina Kuhn, Adeel Mccall and colleagues, with an educational annia from [employer]. Thrive Questionnaire Date Thrive assessed: 11/29/22 I am a: Patient What is your living situation today?: I have a steady place to live Within the past 12 months, did the food you bought not last and you didn't have the money to get more?: Never true Within the past 12 months, did you worry whether your food would run out before you got money to buy more?: Never true Do you have trouble paying for medicines?: No Do you have trouble getting transportation to medical appointments?: No Do you have trouble paying your heating and electricity bill?: No Do you have trouble taking care of your child, family member or friend?: No Do you have trouble with day-to-day activities such as bathing, preparing meals, shopping, managing finances, etc.?: No Are you currently unemployed and looking for a job?: No Are you interested in more education?: No Currently or been in a relationship where the following occur: no concerns reported AUDIT C Alcohol Use Questionnaire (AUDIT-C) 1. How often do you have a drink containing alcohol?: Never 3. How often do you have six or more drinks on one occasion?: Never Total Score: 0 Score Reviewed/Action Taken: Yes CYNTHIA-7 AMB Questionnaire CYNTHIA-7 Date CYNTHIA - 7 assessed: 11/29/22 Feeling nervous, anxious, or on edge: 0 = Not at all Not being able to stop or control worryin = Not at all Worrying too much about different things: 0 = Not at all Trouble relaxin = Not at all Being so restless that it is hard to sit still: 0 = Not at all Becoming easily annoyed or irritable: 0 = Not at all Feeling afraid as if something awful might happen: 0 = Not at all Total CYNTHIA-7 score (0-4 normal; 5-9 mild; 10-14 moderate; 15-21 severe): 0 Source: Developed by Drs. Be Ortiz, Rubina Kuhn, Adeel Mccall and colleagues, with an educational annia from [employer]. Review of Systems Const Reports fatigue, Denies fever(s) and Denies headache(s) ENT Denies dysphagia, Denies dizziness, Denies otalgia, Denies headache(s) and Denies sore throat Card Denies chest pain, Denies palpitations and Denies dyspnea Resp Denies cough and Denies dyspnea GI Denies abdominal pain, Denies constipation, Denies dysphagia, Denies heartburn, Denies diarrhea, Denies nausea and Denies vomiting Denies dysuria, Reports nocturia (lately) and Reports urinary frequency Musc Reports arthralgias (right shoulder), Reports muscle weakness (of the right arm) and Denies stiffness Neuro Reports Neuro-related abnormal movements (overall movements slowing down), Denies dizziness, Denies headache(s) and Reports tremor(s) (due to Parkinson's) Endo Reports fatigue and Denies palpitations Physical exam (Primary Care) Vital Signs: Last Vital Signs Pulse 67 11/29/22 15:44 BP 118/78 11/29/22 15:44 Pulse Ox 98 11/29/22 15:44 Oxygen Delivery Method Room Air 11/29/22 15:44 BMI result Body Mass Index 30.4 Tobacco/Smoking Status: Tobacco use Status Tobacco use date assessed 11/29/22 11/29/22 15:50 Patient Tobacco Use Status Current everyday Tobacco 11/29/22 15:50 e-Cigarette/Vaping Use Never Used 11/29/22 15:50 PHQ-9: PHQ-9 Score PHQ-9: Total score 0 11/29/22 15:50 Depression Screening Interpretation: Negative Thrive Assessment: Date of Thrive Assessment Date Thrive assessed 11/29/22 11/29/22 15:50 Currently or been in a relationship where the following occur: no concerns reported Const General: no acute distress and alert HENMT Ears: TM's normal bilaterally and EAC's normal Throat: Yes posterior oropharynx normal and Yes tonsils normal (no TP congestion) Neck Neck: Yes no lymphadenopathy and Yes supple Resp Auscultation: clear to auscultation bilaterally, no rales and no wheezes Cardio Rate: regular rate Rhythm: regular rhythm Heart sounds: no murmurs GI Palpation (GI): Soft to palpation and nontender Auscultation: normal bowel sounds Skin Rashes: no rashes Neuro Other: (+) multiple large varicosities noted over both lower extremities Motor exam (neuro): Tremors during motor activity present (in both hands) Extrem General: Yes no clubbing, cyanosis or edema Results Reviewed Results Reviewed: Laboratory Tests 11/27/22 11/27/22 11/27/22 10:16 10:16 10:16 WBC 4.7 L Hgb 14.6 Hct 42.5 Plt Count 186 Sodium 132 L Potassium 4.1 Creatinine 0.90 Estimated GFR > 60 Fasting Glucose 127 H Hemoglobin A1c % 5.5 Calcium 9.5 AST 15 ALT 16 Triglycerides 62 Cholesterol 152 LDL Cholesterol, Calc 102 HDL Cholesterol 38 25-OH Vitamin D Total 39.1 TSH 0.56 Ur Specific [place] Urine Protein Urine Glucose (UA) Urine Blood Microalb/Creat Ratio 11/27/22 11/27/22 10:20 10:20 WBC Hgb Hct Plt Count Sodium Potassium Creatinine Estimated GFR Fasting Glucose Hemoglobin A1c % Calcium AST ALT Triglycerides Cholesterol LDL Cholesterol, Calc HDL Cholesterol 25-OH Vitamin D Total TSH Ur Specific [place] 1.015 Urine Protein Negative Urine Glucose (UA) Negative Urine Blood Negative Microalb/Creat Ratio 12.6 Assessment and Plan Assessment & Plan (1) Mixed hyperlipidemia: Code(s): E78.2 - Mixed hyperlipidemia Plan: Results of his labs done a couple of days ago reviewed and discussed with patient Reinforced low cholesterol diet Continue Fenofibrate 145 mg QD and Fish oil capsules 1000 mg TID Will recheck his labs in 4 months for follow-up (2) Benign essential hypertension: Code(s): I10 - Essential (primary) hypertension Plan: Reinforced low-sodium diet -? goal is systolic BP of 120 mm or less Continue Lisinopril 5 mg?QD (3) Diabetes mellitus: Code(s): E11.9 - Type 2 diabetes mellitus without complications Qualifiers: Diabetes mellitus type: type 2 Diabetes mellitus fpc insulin use: without fpc use Diabetes mellitus complication status: without complication Qualified Code(s): E11.9 - Type 2 diabetes mellitus without complications Plan: HgbA1c was at 5.5% on his labs done a couple of days ago (was at 5.9% a few months ago) -? goal is < 7.0% Reinforced diabetic diet Continue Januvia 50 mg QD (4) Hyponatremia: Code(s): E87.1 - Hypo-osmolality and hyponatremia Plan: Serum sodium level remains slightly low at 132 on his recent labs Serum osmolality checked previously was normal Will continue to monitor his serum electrolytes level closely (5) Parkinson's disease: Code(s): G20 - Parkinson's disease Plan: Continue Carbidopa-Levodopa 25-100 mg TID MRI of the brain done in 04/2021 revealed very mild chronic white matter microangiopathic changes and generalized parenchymal volume loss, with no acute findings Follow-up with neurology as scheduled (6) Primary osteoarthritis, right shoulder: Code(s): M19.011 - Primary osteoarthritis, right shoulder Plan: X-rays of the right shoulder done in 12/2020 revealed (+) moderate OA changes Will consider referral to orthopedics if his shoulder symptoms get worse (7) Vitamin D deficiency: Code(s): E55.9 - Vitamin D deficiency, unspecified Plan: Continue Vitamin D3 1000 units QD (8) Varicose veins of lower extremities without ulcer or inflammation: Code(s): I83.90 - Asymptomatic varicose veins of unspecified lower extremity Qualifiers: Laterality: bilateral Qualified Code(s): I83.93 - Asymptomatic varicose veins of bilateral lower extremities Plan: c/o pain in legs and over varicosities at times but symptoms are mostly mild Have offered to refer him to vascular surgery but patient still declines; states that he will call for referral if his symptoms increase or if he changes his mind about this (9) Schizophrenia: Code(s): F20.9 - Schizophrenia, unspecified Qualifiers: Schizophrenia type: unspecified Qualified Code(s): F20.9 - Schizophrenia, unspecified Plan: Continue Risperidone at 3 mg in AM and 4 mg in PM AM dose was lowered to 2 mg when his PM dose was increased back to 4 mg and this resulted in increasing restlessness and agitation, which in turn is making patient smoke more - symptoms stabilized when his AM dose was increased back to 3 mg daily Follow-up with Psychiatry as scheduled (10) Smoker: Code(s): F17.200 - Nicotine dependence, unspecified, uncomplicated Plan: Counseled again on smoking cessation Advised that his recent increase in nighttime coffee consumption is most likely a compensatory mechanism for him not being able to smoke at night and have discussed with patient that it is up to him to make a conscious effort to cut back on his coffee at nighttime as this in turn is what is causing his increased urinary frequency at night (11) Obesity (BMI 30-39.9): Code(s): E66.9 - Obesity, unspecified Plan: Reinforced diet/exercise as tolerated/lose weight Plan Follow up in 4 months Orders: Orders Comprehensive [place]. Panel Fast 4 Months E78.00 - Pure hypercholesterolemia, unspecified Hemoglobin A1c 4 Months E11.9 - Type 2 diabetes mellitus without complications Lipid Panel 4 Months E78.00 - Pure hypercholesterolemia, unspecified TSH reflex Free T4 4 Months E78.00 - Pure hypercholesterolemia, unspecified Vitamin D 25-OH Total 4 Months E55.9 - Vitamin D deficiency, unspecified Microalbumin, Random (w Creat) 4 Months E11.9 - Type 2 diabetes mellitus without complications Complete Blood Count Auto Diff 4 Months I10 - Essential (primary) hypertension UA CC w/rflx Micro + Cult 4 Months R30.0 - Dysuria Coding Level of Care Code Est Pt Level 4 (44958) Diagnoses Mixed hyperlipidemia E78.2 Benign essential hypertension I10 Diabetes mellitus E11.9 Diabetes mellitus type: type 2 Diabetes mellitus fpc insulin 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
== END 2022-11-29 16:44 | disposition home or self-care (01) ==
PROVIDERS: Visit Provider Internal Medicine
DX: I10 Essential (primary) hypertension (principal); G20 Parkinson's disease; E66.9 Obesity, unspecified; Z68.30 Body mass index [BMI] 30.0-30.9, adult; E87.1 Hypo-osmolality and hyponatremia; E11.9 Type 2 diabetes mellitus without complications; E78.2 Mixed hyperlipidemia; M19.011 Primary osteoarthritis, right shoulder; E55.9 Vitamin D deficiency, unspecified; I83.93 Asymptomatic varicose veins of bilateral lower extremities; F20.9 Schizophrenia, unspecified; F17.200 Nicotine dependence, unspecified, uncomplicated
CPT/HCPCS: 99214

== ENCOUNTER 2023-04-01 11:46 | Outpatient (REF) | payer MEDICARE, MEDICAID, SELFPAY ==
[2023-04-01 11:57] LABS: MANUAL DIFF FLAG NO
[2023-04-01 12:20] LABS: Basophils Percent Auto 0.2 % (0-2); Eosinophils Percent Auto 0.8 % (0-4); Hematocrit 40.7 % (42.0-52.0); Hemoglobin 14.1 g/dl (14.0-18.0); Imm Gran Abs Auto 0.01 X10*3/uL (0.00-0.03); Imm Gran Pct Auto 0.2 % (0.0-0.4); Lymphocytes Absolute Auto 1.3 X10*3/uL (1.2-4.9); Lymphocytes Percent Auto 26.9 % (20-40); Mean Corpuscular HGB Conc 34.6 g/dl (31.0-36.0); Mean Corpuscular Hemoglobin 32.5 pg (27.0-33.0); Mean Corpuscular Volume 93.8 fL (80.0-98.0); Mean Platelet Volume 10.2 fL (9.4-12.4); Monocytes Absolute Auto 0.6 X10*3/uL (0.1-1.2); Monocytes Percent Auto 11.5 % (2-11); Neutrophils Absolute Auto 2.9 x10*3/uL (2.0-8.3); Neutrophils Percent Auto 60.4 % (45-73); Platelet Count 166 X10*3/uL (160-400); Red Blood Count 4.34 X10*6/uL (4.60-5.80); Red Cell Distribution Width 12.7 % (11.0-16.0); White Blood Count 4.8 X10*3/uL (4.8-10.8)
[2023-04-01 12:25] LABS: Appearance Urine Clear; Color Urine Yellow; Glucose Urine UA Negative (Negative); Leukocyte Esterase Urine Negative (Negative); Nitrite Urine Negative (Negative); Specific Gravity - Urine 1.015 (1.005-1.025); Urine Blood Negative (Negative); Urine Ketones Negative (Negative); Urine Protein Negative (Neg-Trace)
[2023-04-01 12:52] LABS: Estimated Average Glucose 120 mg/dL; Hemoglobin A1c % 5.8 % (<6.0)
[2023-04-01 12:55] LABS: Alanine Aminotransferase 17 U/L (0-40); Albumin Level 4.4 g/dL (3.5-5.0); Alkaline Phosphatase 34 U/L (39-117); Anion Gap 10 (12-20); Aspartate Amino Transferase 15 U/L (5-37); Bilirubin Total 0.6 mg/dL (0.0-1.0); Blood Urea Nitrogen 11 mg/dL (9-16); Calcium 9.1 mg/dL (8.4-10.2); Carbon Dioxide 27 mmol/L (22-29); Chloride 102 mmol/L (96-108); Cholesterol 140 mg/dL (<200); Estimated Glomerular Filt Rate > 60; Glucose Fasting 110 mg/dL (60-99); HDL Cholesterol 42 mg/dL (>40); LDL Cholesterol Calculated 85 mg/dL (<100); Sodium 135 mmol/L (135-145); Total Protein 7.4 g/dL (6.5-8.0); Triglycerides 65 mg/dL (<150)
[2023-04-01 13:12] LABS: Creatinine Urine 100.67 mg/dL; Microalbum/Creatinine Ratio Ur 9.9 ug/mg cr (<30)
[2023-04-01 13:13] LABS: TSH reflex Free T4 0.63 uIU/mL (0.32-4.0); Vitamin D 25-OH Total 42.8 ng/mL (>30)
== END 2023-04-01 11:47 | disposition home or self-care (01) ==
LOC: HO.LAB 11:46
PROVIDERS: PCP Internal Medicine; Visit Provider Internal Medicine
DX: R30.0 Dysuria (principal); E78.00 Pure hypercholesterolemia, unspecified; E11.9 Type 2 diabetes mellitus without complications; E55.9 Vitamin D deficiency, unspecified; I10 Essential (primary) hypertension
CPT/HCPCS: 36415; 80053; 80061; 81003; 82043; 82306; 82570; 83036; 84443; 85025

== ENCOUNTER 2023-04-05 15:29 | Outpatient (AMB) | payer MEDICARE, MEDICAID, SELFPAY ==
[2023-04-05 15:36] VITALS: BP 140/82; PULSE 77; O2SAT 95; BMI 29.3
--- NOTE | 2023-04-05 15:36 | MHC.PC.OV ---
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 Accompanied by: Self / Same As Patient Allergies haloperidol [From HALDOL] Allergy (Intermediate, Verified 04/05/23 16:18) BODY STIFF aspirin [ASA] Allergy (Unknown, Verified 04/05/23 16:18) UNKNOWN glyburide [GLYBURIDE] Allergy (Unknown, Verified 04/05/23 16:18) UNKNOWN Medication List - Last Reconciled 04/05/23 by Dannie Richard MD carbidopa-levodopa 25-100 mg tabs PO TID cholecalciferol (vitamin D3) 25 mcg PO DAILY fenofibrate nanocrystallized 145 mg PO DAILY 90 days lisinopril 5 mg PO DAILY 90 days omega-3 fatty acids (Fish Oil Concentrate) 1,000 mg PO TID risperidone 4 mg PO QPM risperidone 3 mg PO QAM sitagliptin phosphate (Januvia) 50 mg PO DAILY 90 days terazosin 1 mg PO BEDTIME 90 days Tobacco use date assessed: 04/05/23 Fall risk assessment: No Falls in past year Last assessed Fall Risk: 04/05/23 Dental Screening Dental Screen Date: 04/05/23 Did you have a dental visit in the last 12 months?: No Did you have a dental problem in the last 6 months where you did not have access to dental care?: No Was dental information given to patient?: No HPI 4 month f/u HPI Details Patient comes in today for his follow up visit States that he feels okay He denies any headaches or dizziness Denies any chest pains, no SOB No nausea/vomiting, no abdominal pain No change in bowel habits noted Had his follow up labs done a few days ago - to discuss his results Would like to get his flu shot today PFS Medical History Parkinson's disease Primary osteoarthritis, right shoulder Vitamin D deficiency Mixed hyperlipidemia Obesity (BMI 30-39.9) Smoker Schizophrenia Hyponatremia Benign essential hypertension Diabetes mellitus Surgical History History of eye surgery Family History Father CVD (cardiovascular disease) Cancer Mother Cancer CVD (cardiovascular disease) Stroke Other Mental health problem Social History Housing: House Alcohol intake: former Patient Tobacco Use Status: Current everyday Tobacco user Cigarettes Per Day: 16 e-Cigarette/Vaping Use: Never Used Second Hand Smoke Exposure: Yes service: No Current occupational status: disabled Cognitive needs: Yes (Parkinson's disease) Hearing needs: No Vision needs: No Questionnaire PHQ-9 Over the last 2 weeks, how often have you been bothered by any of the following problems? 1. Little interest or pleasure in doing things: not at all 2. Feeling down, depressed, or hopeless: not at all 3. Trouble falling or staying asleep, or sleeping too much: not at all 4. Feeling tired or having little energy: not at all 5. Poor appetite or overeating: not at all 6. Feeling bad about yourself - or that you are a failure or have let yourself or your family down: not at all 7. Trouble concentrating on things, such as reading the newspaper or watching television: not at all 8. Moving or speaking so slowly that other people could have noticed. Or the opposite - being so fidgety or restless that you have been moving around a lot more than usual: not at all 9. Thoughts that you would be better off or of hurting yourself in some way: not at all Total score: 0 Depression Screening Interpretation: Negative Depression Screening Done: Yes 00549 - PHQ-9 Billing: Yes Source: Developed by Drs. Be Ortiz, Rubina Kuhn, Adeel Mccall and colleagues, with an educational annia from [employer]. Thrive Questionnaire Date Thrive assessed: 04/05/23 I am a: Patient What is your living situation today?: I have a steady place to live Within the past 12 months, did the food you bought not last and you didn't have the money to get more?: Never true Within the past 12 months, did you worry whether your food would run out before you got money to buy more?: Never true Do you have trouble paying for medicines?: No Do you have trouble getting transportation to medical appointments?: No Do you have trouble paying your heating and electricity bill?: No Do you have trouble taking care of your child, family member or friend?: No Do you have trouble with day-to-day activities such as bathing, preparing meals, shopping, managing finances, etc.?: No Are you currently unemployed and looking for a job?: No Are you interested in more education?: No Please select the resources that you would like help with: None Currently or been in a relationship where the following occur: no concerns reported AUDIT C Alcohol Use Questionnaire (AUDIT-C) 1. How often do you have a drink containing alcohol?: Never 3. How often do you have six or more drinks on one occasion?: Never Total Score: 0 Score Reviewed/Action Taken: Yes CYNTHIA-7 AMB Questionnaire CYNTHIA-7 Date CYNTHIA - 7 assessed: 04/05/23 Feeling nervous, anxious, or on edge: 0 = Not at all Not being able to stop or control worryin = Not at all Worrying too much about different things: 0 = Not at all Trouble relaxin = Not at all Being so restless that it is hard to sit still: 0 = Not at all Becoming easily annoyed or irritable: 0 = Not at all Feeling afraid as if something awful might happen: 0 = Not at all Total CYNTHIA-7 score (0-4 normal; 5-9 mild; 10-14 moderate; 15-21 severe): 0 Source: Developed by Drs. Be Ortiz, Rubina Kuhn, Adeel Mccall and colleagues, with an educational annia from [employer]. Review of Systems Const Denies chills, Reports fatigue, Denies fever(s) and Denies headache(s) ENT Denies dysphagia, Denies dizziness, Denies otalgia, Denies headache(s), Denies odynophagia and Denies sore throat Card Denies chest pain, Denies palpitations and Denies dyspnea Resp Denies cough and Denies dyspnea GI Denies abdominal pain, Denies constipation, Denies dysphagia, Denies heartburn, Denies diarrhea, Denies nausea, Denies odynophagia and Denies vomiting Denies dysuria, Reports nocturia (lately) and Reports urinary frequency Musc Denies arthralgias and Reports stiffness Skin/Breast Denies rash Neuro Reports Neuro-related abnormal movements (overall movements slowing down), Denies dizziness, Denies headache(s) and Reports tremor(s) (due to Parkinson's) Endo Reports fatigue and Denies palpitations Physical exam (Primary Care) Vital Signs: Last Vital Signs Pulse 77 04/05/23 15:36 BP 140/82 H 04/05/23 15:36 Pulse Ox 95 04/05/23 15:36 Oxygen Delivery Method Room Air 04/05/23 15:36 BMI result Body Mass Index 29.3 Tobacco/Smoking Status: Tobacco use Status Tobacco use date assessed 04/05/23 04/05/23 15:38 Patient Tobacco Use Status Current everyday Tobacco 04/05/23 15:38 e-Cigarette/Vaping Use Never Used 04/05/23 15:38 PHQ-9: PHQ-9 Score PHQ-9: Total score 0 04/05/23 16:20 Depression Screening Interpretation: Negative Thrive Assessment: Date of Thrive Assessment Date Thrive assessed 04/05/23 04/05/23 15:38 Currently or been in a relationship where the following occur: no concerns reported Const General: no acute distress and alert HENMT Ears: TM's normal bilaterally and EAC's normal Throat: Yes posterior oropharynx normal and Yes tonsils normal (no TP congestion) Neck Neck: Yes no lymphadenopathy and Yes supple Resp Auscultation: clear to auscultation bilaterally, no rales and no wheezes Cardio Rate: regular rate Rhythm: regular rhythm Heart sounds: no murmurs GI Palpation (GI): Soft to palpation and nontender Auscultation: normal bowel sounds Skin Rashes: no rashes Neuro Other: (+) multiple large varicosities noted over both lower extremities Motor exam (neuro): Tremors during motor activity present (in both hands) Extrem General: Yes no clubbing, cyanosis or edema Office Procedures Flu Questionnaire Does the patient have a severe egg allergy?: No Does the patient have severe life threatening allergies?: No Does the patient have a fever or illness today?: No Has the patient ever had Guillain-[place] Syndrome?: No Has the patient ever had any past reaction to a flu shot?: No Immunizations flu vacc [id number] 6mos up(PF) 60 mcg(15 mcgx4)/0.5 mL IM syringe Performing Provider: Dannie Richard MD [facility] [place] Administered by: Rukhsana Martin on 04/05/23 16:21 Dose Route Admin Location Dispensed Lot Number Expiration Date NDC Gravity Flow Irrigator 0.5 mL IM Right Deltoid 0.5 mL [id number] 10/30/23 [id number] [facility] VIS Given Date VIS Provided VIS Publication Date 04/05/23 Single Vaccine 20 Eligibility Eligibility Date Funding Source Not VFC Eligible 04/05/23 Private Results Reviewed Results Reviewed: Laboratory Tests 04/01/23 04/01/23 04/01/23 11:53 11:55 11:55 WBC 4.8 Hgb 14.1 Hct 40.7 L Plt Count 166 Sodium 135 Potassium 4.0 Creatinine 0.86 Estimated GFR > 60 Fasting Glucose 110 H Hemoglobin A1c % 5.8 Calcium 9.1 AST 15 ALT 17 Triglycerides 65 Cholesterol 140 LDL Cholesterol, Calc 85 HDL Cholesterol 42 25-OH Vitamin D Total 42.8 TSH 0.63 Ur Specific [place] 1.015 Urine Protein Negative Urine Glucose (UA) Negative Urine Blood Negative Microalb/Creat Ratio 9.9 Assessment and Plan Assessment & Plan (1) Mixed hyperlipidemia: Code(s): E78.2 - Mixed hyperlipidemia Plan: Results of his labs done a few days ago reviewed and discussed with patient - lipids have improved slightly from previous Reinforced low cholesterol diet Continue Fenofibrate 145 mg QD and Fish oil capsules 1000 mg TID Will recheck his labs and fasting lipids in 4 months for follow-up (2) Benign essential hypertension: Code(s): I10 - Essential (primary) hypertension Plan: Reinforced low-sodium diet -? goal is systolic BP of 120 mm or less Continue Lisinopril 5 mg?QD (3) Diabetes mellitus: Code(s): E11.9 - Type 2 diabetes mellitus without complications Qualifiers: Diabetes mellitus type: type 2 Diabetes mellitus chcf insulin use: without chcf use Diabetes mellitus complication status: without complication Qualified Code(s): E11.9 - Type 2 diabetes mellitus without complications Plan: HgbA1c was at 5.8% on his labs done a few days ago (was at 5.5% a few months ago) -? goal is < 7.0% Reinforced diabetic diet Continue Januvia 50 mg QD (4) Hyponatremia: Code(s): E87.1 - Hypo-osmolality and hyponatremia Plan: Serum sodium level is now normal at 135 on his recent labs Serum osmolality checked previously was normal Will continue to monitor his serum electrolytes level closely (5) Parkinson's disease: Code(s): G20 - Parkinson's disease Qualifiers: Dyskinesia presence: without dyskinesia Fluctuating manifestations: without fluctuating manifestations Qualified Code(s): G20.A1 - Parkinson's disease without dyskinesia, without mention of fluctuations Plan: Continue Carbidopa-Levodopa 25-100 mg TID MRI of the brain done in 04/2021 revealed very mild chronic white matter microangiopathic changes and generalized parenchymal volume loss, with no acute findings Follow-up with neurology as scheduled (6) Primary osteoarthritis, right shoulder: Code(s): M19.011 - Primary osteoarthritis, right shoulder Plan: X-rays of the right shoulder done in 12/2020 revealed (+) moderate OA changes States that his shoulder pain seems to have subsided and has not been bothering him lately Will consider referring him to orthopedics if his shoulder flares up again (7) Vitamin D deficiency: Code(s): E55.9 - Vitamin D deficiency, unspecified Plan: Continue Vitamin D3 1000 units QD (8) Varicose veins of lower extremities without ulcer or inflammation: Code(s): I83.90 - Asymptomatic varicose veins of unspecified lower extremity Qualifiers: Laterality: bilateral Qualified Code(s): I83.93 - Asymptomatic varicose veins of bilateral lower extremities Plan: c/o pain in legs and over varicosities at times but symptoms are mostly mild Have offered to refer him to vascular surgery but patient declined referral; states that he will call for referral if his symptoms increase or if he changes his mind about this (9) Schizophrenia: Code(s): F20.9 - Schizophrenia, unspecified Qualifiers: Schizophrenia type: unspecified Qualified Code(s): F20.9 - Schizophrenia, unspecified Plan: Continue Risperidone at 3 mg in AM and 4 mg in PM AM dose was lowered to 2 mg when his PM dose was increased back to 4 mg and this resulted in increasing restlessness and agitation, which in turn is making patient smoke more - symptoms stabilized when his AM dose was increased back to 3 mg daily Follow-up with Psychiatry as scheduled (10) Smoker: Code(s): F17.200 - Nicotine dependence, unspecified, uncomplicated Plan: Counseled again on smoking cessation Advised that his recent increase in nighttime coffee consumption is most likely a compensatory mechanism for him not being able to smoke at night and have discussed with patient that it is up to him to make a conscious effort to cut back on his coffee at nighttime as this in turn is what is causing his increased urinary frequency at night (11) Obesity (BMI 30-39.9): Code(s): E66.9 - Obesity, unspecified Plan: Reinforced diet/exercise as tolerated/lose weight Plan Flu vaccine given today Follow up in months Orders: Orders Influenza [id number] Immunization Today Z23 - Encounter for immunization Comprehensive [place]. Panel Fast 4 Months E78.00 - Pure hypercholesterolemia, unspecified Lipid Panel 4 Months E78.00 - Pure hypercholesterolemia, unspecified UA CC w/rflx Micro + Cult 4 Months R30.0 - Dysuria Microalbumin, Random (w Creat) 4 Months E11.9 - Type 2 diabetes mellitus without complications Hemoglobin A1c 4 Months E11.9 - Type 2 diabetes mellitus without complications Complete Blood Count Auto Diff 4 Months I10 - Essential (primary) hypertension TSH reflex Free T4 4 Months E78.00 - Pure hypercholesterolemia, unspecified Vitamin D 25-OH Total 4 Months E55.9 - Vitamin D deficiency, unspecified Coding Level of Care Code Est Pt Level 4 (62722) Diagnoses Mixed hyperlipidemia E78.2 Benign essential hypertension I10 Type 2 diabetes mellitus without complication, without long-term current use of insulin E11.9 Diabetes mellitus type: type 2 Diabetes mellitus chcf insulin use: without superintendent [employer] use Diabetes mellitus complication status: without complication Hyponatremia E87.1 Parkinson's disease without dyskinesia or fluctuating manifestations G20.A1 Dyskinesia presence: without dyskinesia Fluctuating manifestations: without fluctuating manifestations Primary osteoarthritis, right shoulder M19.011 Vitamin D deficiency E55.9 Varicose veins of both lower extremities without ulcer or inflammation I83.93 Laterality: bilateral Schizophrenia, unspecified type F20.9 Schizophrenia type: unspecified Smoker F17.200 Obesity (BMI 30-39.9) E66.9
== END 2023-04-05 16:33 | disposition home or self-care (01) ==
PROVIDERS: PCP Internal Medicine; Visit Provider Internal Medicine
DX: E11.9 Type 2 diabetes mellitus without complications (principal); F20.9 Schizophrenia, unspecified; E78.2 Mixed hyperlipidemia; Z23 Encounter for immunization; I10 Essential (primary) hypertension; E87.1 Hypo-osmolality and hyponatremia; G20.A1 Parkinson's disease without dyskinesia, without mention of fluctuations; M19.011 Primary osteoarthritis, right shoulder; E55.9 Vitamin D deficiency, unspecified; I83.93 Asymptomatic varicose veins of bilateral lower extremities; F17.200 Nicotine dependence, unspecified, uncomplicated; E66.9 Obesity, unspecified
CPT/HCPCS: 90471; 90686; 99214

== ENCOUNTER 2023-07-16 00:12 | Emergency (ER) | payer MEDICARE, MEDICAID, SELFPAY ==
[2023-07-16] VITALS (11 sets, daily range): BP systolic 119–162; BP diastolic 60–109; PULSE 86–104; RESP 19–31; TEMP 37.8–38.3; O2SAT 91–97; BMI 27.7
--- NOTE | ~2023-07-16 | XR_ITS ---
EXAMINATION: XR KNEE, RIGHT CLINICAL INFORMATION: Fall. Pain. COMPARISON: None available. TECHNIQUE: Four views of the right knee. FINDINGS: The bone mineralization is normal. There is mild medial knee degenerative change with mild loss of joint space. There is no fracture. There appears to be an enthesophyte arising from the proximal fibula. There is no joint effusion. The soft tissues are unremarkable. XR/XR knee RT 2V IMPRESSION: Mild medial knee degenerative change. No fracture or dislocation.
--- NOTE | ~2023-07-16 | CT_ITS ---
EXAMINATION: CT HEAD WITHOUT CONTRAST CT CERVICAL SPINE WITHOUT CONTRAST CLINICAL INFORMATION: Trauma. Pain. COMPARISON: None available. TECHNIQUE: Contiguous axial imaging was performed through the head and cervical spine without intravenous administration of contrast. Sagittal and coronal reformatted images also obtained. This CT examination was performed using dose optimization techniques as appropriate, variously including the following: *Automated exposure control *Adjustment of mA and/or kV according to patient size (this includes techniques or standardized protocols for targeted exams where dose is matched to indication/reason for exam; i.e. extremities or head) *Use of iterative reconstruction technique DLP: 1330 mGy-cm FINDINGS: The lateral, third and fourth ventricles are normally outlined. The cortical sulci and basal cisterns are normally outlined as well. There is no acute territorial defect, hemorrhage or midline shift. The extra-axial spaces are unremarkable. Calvarium: Intact. Maxillofacial sinuses and mastoids: Clear as visualized. Cervical spine: Motion slightly limits evaluation. There is straightening of the cervical spine curvature. There is minimal diffuse cervical disc degenerative change with multilevel minimal loss of disc space, mild endplate change and minimal osteophyte formation associated with mild diffuse facet osteoarthritic hypertrophic change without significant spinal canal or neuroforaminal narrowing. No fracture is seen. The soft tissues are unremarkable. The visualized upper lung dumont are clear. CT/CT head/brain wo IV con IMPRESSION: 1. No acute intracranial process seen. 2. There is no acute fracture or dislocation in cervical spine.
--- NOTE | ~2023-07-16 | XR_ITS ---
EXAMINATION: XR KNEE, LEFT CLINICAL INFORMATION: Fall. Pain. COMPARISON: None available. TECHNIQUE: Four views of the left knee. FINDINGS: The bone mineralization is within normal limits. There is mild medial knee degenerative change with mild loss of joint space and minimal osteophyte formation. The remaining joint spaces are maintained. There is no fracture. There is no significant joint effusion. Soft tissues are unremarkable. XR/XR knee LT 2V IMPRESSION: 1. No acute fracture or dislocation. 2. Mild medial knee degenerative change.
--- NOTE | ~2023-07-16 | CT_ITS ---
EXAMINATION: CT HEAD WITHOUT CONTRAST CT CERVICAL SPINE WITHOUT CONTRAST CLINICAL INFORMATION: Trauma. Pain. COMPARISON: None available. TECHNIQUE: Contiguous axial imaging was performed through the head and cervical spine without intravenous administration of contrast. Sagittal and coronal reformatted images also obtained. This CT examination was performed using dose optimization techniques as appropriate, variously including the following: *Automated exposure control *Adjustment of mA and/or kV according to patient size (this includes techniques or standardized protocols for targeted exams where dose is matched to indication/reason for exam; i.e. extremities or head) *Use of iterative reconstruction technique DLP: 1330 mGy-cm FINDINGS: The lateral, third and fourth ventricles are normally outlined. The cortical sulci and basal cisterns are normally outlined as well. There is no acute territorial defect, hemorrhage or midline shift. The extra-axial spaces are unremarkable. Calvarium: Intact. Maxillofacial sinuses and mastoids: Clear as visualized. Cervical spine: Motion slightly limits evaluation. There is straightening of the cervical spine curvature. There is minimal diffuse cervical disc degenerative change with multilevel minimal loss of disc space, mild endplate change and minimal osteophyte formation associated with mild diffuse facet osteoarthritic hypertrophic change without significant spinal canal or neuroforaminal narrowing. No fracture is seen. The soft tissues are unremarkable. The visualized upper lung dumont are clear. CT/CT cervical spine wo IV con IMPRESSION: 1. No acute intracranial process seen. 2. There is no acute fracture or dislocation in cervical spine.
--- NOTE | ~2023-07-16 | XR_ITS ---
EXAMINATION: XR CHEST CLINICAL INFORMATION: Altered mental status. COMPARISON: 11/29/2007. TECHNIQUE: Frontal view of the chest was obtained. FINDINGS: The cardiomediastinal silhouette is within normal limits. There is no focal lung consolidation or pleural effusion. The bony structures and soft tissues are unremarkable. XR/XR chest 1V IMPRESSION: No acute cardiopulmonary process.
--- NOTE | 2023-07-16 00:19 | ECG_ITS ---
Test Reason : SOB Blood Pressure : / mmHG Vent. Rate : 101 BPM Atrial Rate : 101 BPM P-R Int : 124 ms QRS Dur : 132 ms QT Int : 392 ms P-R-T Axes : 031 063 056 degrees QTc Int : 508 ms Poor data quality Sinus tachycardia Borderline ECG No previous ECGs available Please repeat EKG Referred By: Lisa Stewart Electronically Signed By:ALTA CINTRON MD
[2023-07-16] MEDS: 0.9 % Sodium Chloride 1,000 ML 999 ML IVCONT (00:29)
[2023-07-16] MEDS: methylPREDNISolone Sod Succ 125 MG/2 ML VIAL IVPUSH (00:30)
[2023-07-16] MEDS: ondansetron HCL 4 MG/2 ML VIAL IVPUSH (00:31)
[2023-07-16 00:33] LABS: MANUAL DIFF FLAG NO
[2023-07-16] MEDS: cefTRIAXone sodium 1 GM in 0.9 % Sodium Chloride 50 ML IV (00:34)
--- NOTE | 2023-07-16 00:34 | ED.AMS ---
HPI - Altered Mental Status General Chief Complaint: Upper Respiratory Symptoms Stated Complaint: sepsis alert Source: EMS and old records reviewed Mode of arrival: EMS Limitations: altered mental status History of Present Illness HPI narrative: 63 yo male with PMH schizophrenia, HTN, DM, hyponatremia, COPD, HLD, parkinsons disease coming from home. Per EMS family had URI and he did too. They told EMS they found him on the floor at 8pm and left him there until they called EMS around midnight. On arrival he was hypoxic, wheezing and found to be 88% on RA. He was hot to touch and saturated in foul smelling urine. The family also notes they tried to feed him yogurt while snoring. The patient has a loud snoring respirations as well. Given duoneb and O2 en route with improvement. sister arrived he is full code last saw normal in the afternoon when they came home he was kneeling with his head down on the bed and his legs were weak and shaking. They went out all afternoon until 8pm He did not eat or drink much today. MD complaint: altered mental status, decreased responsiveness and weakness Onset (ago): day(s) (few days acutely worse tonight) Timing confirmed by: family member Severity: severe Consistency of symptoms: getting Worse Associated symptoms: chills, loss of appetite, malaise, weakness and incontinence Treatments prior to arrival: oxygen and other (duoneb) Related Data Home Medications Medication Instructions Recorded Confirmed cholecalciferol (vitamin D3) 25 25 mcg PO DAILY 03/19/20 04/05/23 mcg (1,000 unit) tablet omega-3 fatty acids 1,000 mg 1,000 mg PO TID 03/19/20 04/05/23 capsule (Fish Oil Concentrate) risperidone 3 mg tablet 3 mg PO QAM 06/18/20 04/05/23 risperidone 4 mg tablet 4 mg PO QPM 06/18/20 04/05/23 carbidopa 25 mg-levodopa 100 mg tab PO TID 04/09/21 04/05/23 tablet Previous Rx's Medication Instructions Recorded terazosin 1 mg capsule 1 mg PO BEDTIME 90 days #90 caps 03/28/23 fenofibrate nanocrystallized 145 145 mg PO DAILY 90 days #90 tabs 04/08/23 mg tablet sitagliptin phosphate 50 mg tablet 50 mg PO DAILY 90 days #90 tabs 05/23/23 (Januvia) lisinopril 5 mg tablet 5 mg PO DAILY 90 days #90 tabs 06/17/23 Allergies Allergy/AdvReac Type Severity Reaction Status Date / Time haloperidol [From HALDOL] Allergy Intermediate BODY STIFF Verified 04/05/23 16:18 aspirin [ASA] Allergy Unknown UNKNOWN Verified 04/05/23 16:18 glyburide [GLYBURIDE] Allergy Unknown UNKNOWN Verified 04/05/23 16:18 Review of Systems Review of Systems: ROS unable to be obtained due to altered mental status [facility] Past Medical History Source: old records reviewed Medical History Parkinson's disease Primary osteoarthritis, right shoulder Vitamin D deficiency Mixed hyperlipidemia Obesity (BMI 30-39.9) Smoker Schizophrenia Hyponatremia Benign essential hypertension Diabetes mellitus Surgical History History of eye surgery Family History Family History Father CVD (cardiovascular disease) Cancer Mother Cancer CVD (cardiovascular disease) Stroke Other Mental health problem Social History Social History Housing: House Alcohol intake: former Patient Tobacco Use Status: Current everyday Tobacco user Cigarettes Per Day: 16 e-Cigarette/Vaping Use: Never Used Second Hand Smoke Exposure: Yes Advance Directives: No Advance Directives Information Provided: No service: No Current occupational status: disabled Cognitive needs: Yes (Parkinson's disease) Hearing needs: No Vision needs: No Physical Exam ED Vital Signs: Vital Signs - 24 hr 07/16/23 00:52 07/16/23 00:55 07/16/23 01:32 Temperature 100.9 F H Pulse Rate 104 H 89 Respiratory Rate 24 H 19 Blood Pressure 162/109 H 130/62 Pulse Oximetry 97 91 L 93 Oxygen Delivery Method Blow By Room Air Oxymask Oxygen Flow Rate 4 07/16/23 01:34 07/16/23 02:17 07/16/23 02:50 Temperature 100.5 F H Pulse Rate 90 100 94 Respiratory Rate 21 H 31 H 23 H Blood Pressure 130/62 152/62 H 137/66 Pulse Oximetry 93 97 94 Oxygen Delivery Method Nasal Cannula Oxymask Nasal Cannula Oxygen Flow Rate 4 4 4 07/16/23 03:05 07/16/23 03:50 07/16/23 04:39 Temperature 100.1 F Pulse Rate 91 86 97 Respiratory Rate 20 20 28 H Blood Pressure 143/73 H 131/60 131/86 Pulse Oximetry 95 94 95 Oxygen Delivery Method Nasal Cannula Nasal Cannula Oxymask Oxygen Flow Rate 4 4 4 07/16/23 06:00 Temperature 100.4 F Pulse Rate 96 Respiratory Rate 25 H Blood Pressure 119/73 Pulse Oximetry 93 Oxygen Delivery Method Oxymask Oxygen Flow Rate 4 BMI result Body Mass Index 27.7 Appearance: confused, easily woken to his name and awake and pulling at his O2 tubing and mask. He did vomit and cleared his own airway without issue. Moderate acute distress Eyes: R pupils appears slit like L pupil round and reactive ENT: Pharynx dry MM, uvula is swollen and red with boggy appearance tongue is normal appearing he is snoring when asleep and laying flat Neck: Normal inspection. Neck supple. CVS: tachycardic heart rate and rhythm. Pulses normal. Respiratory: mod respiratory distress tachypnea Breath sounds audible wheezes Abdomen: Soft and nontender. Skin: Skin hot to touch and clammy Normal skin color. Extremities: No lower extremity edema. No calf ttp Neuro: confused, moves all extremities but cannot fully participate in exam. Course Course Course Narrative: we have no ICU beds here [facility] and [facility] are full hospitalist will not admit Na of 116 Reevaluation(s) Reevaluation #1: call to [place] [phone] for transfer Reevaluation #2: repeat discussions with sister who doesn't seem to grasp the severity of his illness I have spent significant time at bedside going over what is happening to him Reevaluation #3: recheck uvula no swelling 604am Medications Administered Generic Name Dose Route Start Last Admin Trade Name Freq PRN Reason Stop Dose Admin Sodium Chloride 1,000 mls @ 50 mls/hr 07/16/23 06:15 07/16/23 06:17 Ns IVCONT 50 mls/hr .Q20H NAILA Administration Discontinued Medications Generic Name Dose Route Start Last Admin Trade Name Freq PRN Reason Stop Dose Admin Acetaminophen 650 mg 07/16/23 00:19 07/16/23 00:37 Acetaminophen Supp 650 Mg Supp.Rect AZ 07/16/23 00:20 650 mg ONCE ONE Administration Famotidine 20 mg 07/16/23 00:19 07/16/23 00:37 Famotidine/Pf 20 Mg/2 Ml Vial IVPUSH 07/16/23 00:20 20 mg ONCE ONE Administration Sodium Chloride 1,000 mls @ 999 mls/hr 07/16/23 00:30 07/16/23 02:45 Ns IVCONT 07/16/23 01:30 Infused .Q1H1M NAILA Infusion Ceftriaxone Sodium 1 gm/ 50 mls @ 100 mls/hr 07/16/23 00:19 07/16/23 01:05 Sodium Chloride IV 07/16/23 00:48 Infused ONCE ONE Infusion Magnesium Sulfate 2 gm in 50 mls @ 25 mls/hr 07/16/23 01:10 07/16/23 02:10 Magnesium Sulfate/H2o IV 07/16/23 03:09 Infused ONCE ONE Infusion Methylprednisolone Sodium Succinate 125 mg 07/16/23 00:19 07/16/23 00:30 Methylprednisolone Sod Succ 125 Mg/2 Ml Vial IVPUSH 07/16/23 00:20 125 mg ONCE ONE Administration Ondansetron HCl 4 mg 07/16/23 00:19 07/16/23 00:31 Ondansetron Hcl 4 Mg/2 Ml Vial IVPUSH 07/16/23 00:20 4 mg ONCE ONE Administration Medical Decision Making Medical Decision Making MDM Narrative: 63 yo male with PMH schizophrenia, HTN, DM, COPD, hyponatremia, HLD, parkinsons disease here after being on the floor since 8pm found by family he is tachycardic, hot to touch, altered, smells of foul urine and saturated, has no signs of head trauma, his uvula is swollen but tongue and soft palate is normal - IV steroids and pepcid is ordered. Will monitor closely. He is a sepsis protocol - IVF, cultures, empiric ceftriaxone ordered. He is wheezing has snoring but unsure if this is is his baseline vs the uvula there is no stridor noted. He is able to clear his airway. CT head/cspine after being found down is ordered. Planned admit family is not helpful at all they do not report a seizure but note he was shaking but awake and he has parkinsons. they are fixated on his swollen knees when I've tried to explain his breathing and other medical issues Differential Diagnosis Differential Diagnoses: The differential diagnosis associated with the presentation includes UTI, pneumonia, viral syndrome, uvulitis, allergic reaction given uvula presentation concern will closely monitor airway Admission/Observation Consideration of admission/observation: Escalation of care including admission/observation considered will need ICU level of care given 116 Consult Healthcare Provider accepted to [facility] Dr. Mackenzie Lab Data MDM Lab Attestation statement: I reviewed the patient's lab results. 07/16/23 00:24 07/16/23 06:00 Labs: Lab Results 07/16/23 07/16/23 07/16/23 Range/Units 00:24 00:32 00:34 WBC 6.6 (4.8-10.8) X10*3/uL RBC 4.03 L (4.60-5.80) X10*6/uL Hgb 12.7 L (14.0-18.0) g/dl Hct 35.0 L (42.0-52.0) % MCV 86.8 (80.0-98.0) fL MCH 31.5 (27.0-33.0) pg MCHC 36.3 H (31.0-36.0) g/dl RDW 11.8 (11.0-16.0) % Plt Count 110 L D (160-400) X10*3/uL MPV 10.2 (9.4-12.4) fL Immature Gran % (Auto) 0.5 H (0.0-0.4) % Neut % (Auto) 89.7 H (45-73) % Lymph % (Auto) 2.1 L (20-40) % [place] % (Auto) 7.7 (2-11) % Eos % (Auto) 0.0 (0-4) % Baso % (Auto) 0.0 (0-2) % Lymph # (Auto) 0.1 L (1.2-4.9) X10*3/uL [place] # (Auto) 0.5 (0.1-1.2) X10*3/uL Eos # (Auto) 0.0 (0.0-0.4) X10*3/uL Baso # (Auto) 0.0 (0.0-0.2) X10*3/uL Abs Immat Gran (auto) 0.03 (0.00-0.03) X10*3/uL Absolute Neuts (auto) 6.0 (2.0-8.3) x10*3/uL Absolute Nucleated RBC 0.000 (0.0-0.012) X10*3/uL Nucleated RBC % (auto) 0.0 (0.0-0.2) /100WBC PT 14.3 H (11.1-13.3) SEC INR 1.2 H (0.9-1.1) VBG pH 7.37 (7.32-7.43) VBG pCO2 37 mmHg VBG pO2 65 mmHg VBG HCO3 21 L (22-26) mmol/L VBG O2 Saturation 92.0 % VBG Base Excess -2.9 mmol/L Sodium 116 L* (135-145) mmol/L Potassium 3.7 (3.3-5.1) mmol/L Chloride 86 L (96-108) mmol/L Carbon Dioxide 23 (22-29) mmol/L Anion Gap 11 L (12-20) BUN 9 (9-16) mg/dL Creatinine 0.88 (0.5-1.4) mg/dL Estim Creat Clear Calc TNP Estimated GFR > 60 Random Glucose 171 H (60-115) mg/dL Lactic Acid 1.4 (0.5-2.0) mmol/L Calcium 8.5 D (8.4-10.2) mg/dL Magnesium 1.4 L* (1.6-2.6) mg/dL Total Bilirubin 0.8 (0.0-1.0) mg/dL Direct Bilirubin 0.3 (0.0-0.5) mg/dL AST 69 H (5-37) U/L ALT 16 (0-40) U/L Alkaline Phosphatase 32 L (39-117) U/L Ammonia 29 (13-55) umol/L Total Creatine Kinase 4245 H (38-174) U/L Troponin I High Sens 26.6 (<3.5-35.0) ng/L B-Natriuretic Peptide 215 H (<100) pg/mL Total Protein 6.9 (6.5-8.0) g/dL Albumin 4.1 (3.5-5.0) g/dL Lipase 13 (8-78) U/L Procalcitonin 0.14 ng/mL TSH 0.39 (0.32-4.0) uIU/mL Urine Color Urine Appearance Urine pH (5.0-9.0) Ur Specific [place] (1.005-1.025) Urine Protein (Neg-Trace) mg/dL Urine Glucose (UA) (Negative) mg/dL Urine Ketones (Negative) mg/dL Urine Blood (Negative) Urine Nitrite (Negative) Ur Leukocyte Esterase (Negative) Urine RBC (0-2) /HPF Urine WBC (0-5) /HPF Ur Squamous Epith Cells (0-2) /HPF Urine Bacteria (None Seen) Hyaline Casts (0-2) /LPF Influenza Type A (PCR) POSITIVE A (Negative) Influenza Type B (PCR) NEGATIVE (Negative) RSV RNA Qual (PCR) NEGATIVE (Negative) SARS-CoV-2 RNA (RT-PCR) NEGATIVE (Negative) 07/16/23 07/16/23 Range/Units 02:20 06:00 WBC (4.8-10.8) X10*3/uL RBC (4.60-5.80) X10*6/uL Hgb (14.0-18.0) g/dl Hct (42.0-52.0) % MCV (80.0-98.0) fL MCH (27.0-33.0) pg MCHC (31.0-36.0) g/dl RDW (11.0-16.0) % Plt Count (160-400) X10*3/uL MPV (9.4-12.4) fL Immature Gran % (Auto) (0.0-0.4) % Neut % (Auto) (45-73) % Lymph % (Auto) (20-40) % [place] % (Auto) (2-11) % Eos % (Auto) (0-4) % Baso % (Auto) (0-2) % Lymph # (Auto) (1.2-4.9) X10*3/uL [place] # (Auto) (0.1-1.2) X10*3/uL Eos # (Auto) (0.0-0.4) X10*3/uL Baso # (Auto) (0.0-0.2) X10*3/uL Abs Immat Gran (auto) (0.00-0.03) X10*3/uL Absolute Neuts (auto) (2.0-8.3) x10*3/uL Absolute Nucleated RBC (0.0-0.012) X10*3/uL Nucleated RBC % (auto) (0.0-0.2) /100WBC PT (11.1-13.3) SEC INR (0.9-1.1) VBG pH (7.32-7.43) VBG pCO2 mmHg VBG pO2 mmHg VBG HCO3 (22-26) mmol/L VBG O2 Saturation % VBG Base Excess mmol/L Sodium 117 L* (135-145) mmol/L Potassium (3.3-5.1) mmol/L Chloride (96-108) mmol/L Carbon Dioxide (22-29) mmol/L Anion Gap (12-20) BUN (9-16) mg/dL Creatinine (0.5-1.4) mg/dL Estim Creat Clear Calc Estimated GFR Random Glucose (60-115) mg/dL Lactic Acid (0.5-2.0) mmol/L Calcium (8.4-10.2) mg/dL Magnesium (1.6-2.6) mg/dL Total Bilirubin (0.0-1.0) mg/dL Direct Bilirubin (0.0-0.5) mg/dL AST (5-37) U/L ALT (0-40) U/L Alkaline Phosphatase (39-117) U/L Ammonia (13-55) umol/L Total Creatine Kinase (38-174) U/L Troponin I High Sens (<3.5-35.0) ng/L B-Natriuretic Peptide (<100) pg/mL Total Protein (6.5-8.0) g/dL Albumin (3.5-5.0) g/dL Lipase (8-78) U/L Procalcitonin ng/mL TSH (0.32-4.0) uIU/mL Urine Color Yellow Urine Appearance Clear Urine pH 6.0 (5.0-9.0) Ur Specific [place] 1.020 (1.005-1.025) Urine Protein 30 (1+) H (Neg-Trace) mg/dL Urine Glucose (UA) 250 H (Negative) mg/dL Urine Ketones 15 (Negative) mg/dL Urine Blood Large (3+) H (Negative) Urine Nitrite Negative (Negative) Ur Leukocyte Esterase Negative (Negative) Urine RBC 3-5 H (0-2) /HPF Urine WBC 0-5 (0-5) /HPF Ur Squamous Epith Cells 0-2 (0-2) /HPF Urine Bacteria None Seen (None Seen) Hyaline Casts 3-5 (0-2) /LPF Influenza Type A (PCR) (Negative) Influenza Type B (PCR) (Negative) RSV RNA Qual (PCR) (Negative) SARS-CoV-2 RNA (RT-PCR) (Negative) Independent Interpretation I performed an independent interpretation of an: EKG, Plain X-Ray (no fracture) and CT Scan (no ICH) Interpretation: Rate: 101 Rhythm: sinus tach [place]: normal Normal P waves. Normal [place]. Normal QRS complex. ST T wave : artifact no PAN qTC: 508 prior studies: no acute findings but sig artifact The study has been interpreted contemporaneously by me. . Radiology Impression Discussion of test interpretation with radiology: I have reviewed the radiologist's reading. Independent Historian Clinical information obtained from an independent historian. History obtained from or confirmed by: EMS External Record Review External record reviewed: Office record Critical Care Time Critical Care Time Critical Care Time: Yes Total Critical Care Time: 75 Attestation: repeat exams, CT scans, review of records, transfer, repeat discussions with family, repeat labs I attest to this time spent taking care of the patient Discharge Plan Discharge Clinical Impression: Influenza A, Acute hyponatremia, COPD with acute exacerbation, Hypomagnesemia, Encephalopathy acute Rhabdomyolysis Qualifiers: Rhabdomyolysis type: non-traumatic Qualified Code(s): M62.82 - Rhabdomyolysis Patient Disposition: [facility] Transfer Details: [facility] Prescriptions: No Action terazosin 1 mg capsule 1 mg PO BEDTIME 90 Days Qty: 90 1RF fenofibrate nanocrystallized 145 mg tablet 145 mg PO DAILY 90 Days Qty: 90 1RF Januvia 50 mg tablet 50 mg PO DAILY 90 Days Qty: 90 1RF lisinopril 5 mg tablet 5 mg PO DAILY 90 Days Qty: 90 1RF omega-3 fatty acids [Fish Oil Concentrate] 1,000 mg capsule 1,000 mg PO TID cholecalciferol (vitamin D3) 25 mcg (1,000 unit) tablet 25 mcg PO DAILY risperidone 3 mg tablet 3 mg PO QAM risperidone 4 mg tablet 4 mg PO QPM carbidopa-levodopa 25-100 mg tablet PO TID
[2023-07-16] MEDS: Famotidine/PF 20 MG/2 ML VIAL IVPUSH (00:37)
[2023-07-16] MEDS: Acetaminophen Supp 650 MG SUPP.RECT PR (00:37)
[2023-07-16 00:39] LABS: Ammonia 29 umol/L (13-55)
[2023-07-16 00:40] LABS: Venous Blood Gas Refer to POC result
[2023-07-16 00:40] LABS: VBG Base Excess -2.9 mmol/L; VBG HCO3 21 mmol/L (22-26); VBG pCO2 37 mmHg; VBG pH 7.37 (7.32-7.43); VBG pO2 65 mmHg
[2023-07-16 00:42] LABS: INTERNATIONAL NORM RATIO 1.2 (0.9-1.1); Prothrombin Time 14.3 SEC (11.1-13.3)
[2023-07-16 00:43] LABS: Lactic Acid 1.4 mmol/L (0.5-2.0)
[2023-07-16 00:44] LABS: Hemoglobin 12.7 g/dl (14.0-18.0); Imm Gran Abs Auto 0.03 X10*3/uL (0.00-0.03); Imm Gran Pct Auto 0.5 % (0.0-0.4); Lymphocytes Absolute Auto 0.1 X10*3/uL (1.2-4.9); Lymphocytes Percent Auto 2.1 % (20-40); Mean Corpuscular HGB Conc 36.3 g/dl (31.0-36.0); Mean Corpuscular Hemoglobin 31.5 pg (27.0-33.0); Mean Corpuscular Volume 86.8 fL (80.0-98.0); Mean Platelet Volume 10.2 fL (9.4-12.4); Monocytes Absolute Auto 0.5 X10*3/uL (0.1-1.2); Monocytes Percent Auto 7.7 % (2-11); Neutrophils Percent Auto 89.7 % (45-73); Platelet Count 110 X10*3/uL (160-400); Red Blood Count 4.03 X10*6/uL (4.60-5.80); Red Cell Distribution Width 11.8 % (11.0-16.0); White Blood Count 6.6 X10*3/uL (4.8-10.8)
[2023-07-16 00:53] LABS: Troponin-I High Sensitivity 26.6 ng/L (<3.5-35.0)
[2023-07-16 00:54] LABS: B Type Natriuretic Peptide 215 pg/mL (<100)
[2023-07-16 01:02] LABS: Alanine Aminotransferase 16 U/L (0-40); Albumin Level 4.1 g/dL (3.5-5.0); Alkaline Phosphatase 32 U/L (39-117); Anion Gap 11 (12-20); Aspartate Amino Transferase 69 U/L (5-37); Bilirubin Direct 0.3 mg/dL (0.0-0.5); Bilirubin Total 0.8 mg/dL (0.0-1.0); Blood Urea Nitrogen 9 mg/dL (9-16); Calcium 8.5 mg/dL (8.4-10.2); Carbon Dioxide 23 mmol/L (22-29); Chloride 86 mmol/L (96-108); Estimated Glomerular Filt Rate > 60; Glucose Random 171 mg/dL (60-115); Lipase 13 U/L (8-78); Potassium 3.7 mmol/L (3.3-5.1); Total Protein 6.9 g/dL (6.5-8.0)
[2023-07-16 01:08] LABS: Magnesium 1.4 mg/dL (1.6-2.6); Sodium 116 mmol/L (135-145); TSH reflex Free T4 0.39 uIU/mL (0.32-4.0)
[2023-07-16 01:09] LABS: Procalcitonin 0.14 ng/mL
[2023-07-16 01:17] LABS: Influenza A PCR POSITIVE (Negative); Influenza B PCR NEGATIVE (Negative); Resp Syncy Virus RNA Qual PCR NEGATIVE (Negative); SARS COV2 PCR INHOUSE NEGATIVE (Negative)
[2023-07-16] MEDS: Magnesium Sulfate/H2O 2 GM/50 ML PIGGYBACK IV (01:45)
[2023-07-16 02:26] LABS: Appearance Urine Clear; Color Urine Yellow; Glucose Urine UA 250 mg/dL (Negative); Leukocyte Esterase Urine Negative (Negative); Nitrite Urine Negative (Negative); UMIC TRIGGER UACC YES; Urine Blood Large (3+) (Negative); Urine Ketones 15 mg/dL (Negative); Urine Protein 30 (1+) mg/dL (Neg-Trace)
--- NOTE | 2023-07-16 02:31 | PC.NURSE ---
Addendum entered by Christel Obregon 07/16/23 04:20: seziure precautions. Addendum entered by Christel Obregon 07/16/23 03:02: bilat knee bruising noted. otherwise skin intact. pt cleaned new bed linen. straight cath done pt tolerated well. pt febrile upon recheck ice packs placed on pt. family at bedside. pt at baseline mentation per family. Original Note: pt biba from home family reported pt was found on the ground approx 1999; pt remained on the ground until ems arrival. family also reported trying to feed pt while on ground and called ems when noticed coughing/choking. ems found pt to be wheezing; 88% on RA. IV + IVF/neb tx administered via ems. on arrival pt still wheezing. duoneb via respiratory. blood work obtained. ekg obtained. sepsis called on arrival. ivf hung to infuse over [address] valencia verbal order. pt medicated per jul.[email or web address] iv obtained L. wrist. after neb tx pt remained 91% on RA; placed on 4L oxymask per Dr. Valencia verbal order sats 95%.
[2023-07-16 02:36] LABS: Bacteria Urine None Seen (None Seen); Squamous Epithelial Cell Urine 0-2 /HPF (0-2); WBC Urine 0-5 /HPF (0-5)
--- NOTE | 2023-07-16 05:14 | PC.NURSE ---
Addendum entered by Christel Obregon 07/16/23 05:15: [id number] Original Note: report given to Grisel HERRERA in ICU at [facility].
[2023-07-16 06:12] LABS: Sodium 117 mmol/L (135-145)
[2023-07-16] MEDS: 0.9 % Sodium Chloride 1,000 ML 50 ML IVCONT (06:17)
--- NOTE | 2023-07-16 06:18 | PC.NURSE ---
tipton in place. airway patent. pt more alert and responsive. has muffled speaking with family states is baseline. maintenance fluids infusing. tipton in place. no changes otherwise. awaiting transport.
== END 2023-07-16 07:23 | disposition short-term general hospital (02) ==
PROVIDERS: Emergency Provider Emergency Medicine; PCP Internal Medicine
DX: M62.82 Rhabdomyolysis (principal); J10.1 Influenza due to other identified influenza virus with other respiratory manifestations; J44.1 Chronic obstructive pulmonary disease with (acute) exacerbation; E83.42 Hypomagnesemia; G93.40 Encephalopathy, unspecified; E87.1 Hypo-osmolality and hyponatremia; G20.A1 Parkinson's disease without dyskinesia, without mention of fluctuations; R06.02 Shortness of breath; R09.02 Hypoxemia; E11.9 Type 2 diabetes mellitus without complications; I10 Essential (primary) hypertension; E78.5 Hyperlipidemia, unspecified; R06.2 Wheezing; R00.0 Tachycardia, unspecified; Z79.899 Other long term (current) drug therapy
CPT/HCPCS: 0241U; 36415; 70450; 71045; 72125; 73560; 80048; 80076; 81001; 82140; 82550; 82803; 83605; 83690; 83735; 83880; 84145; 84295; 84443; 84484; 85025; 85610; 87040; 93005; 96361; 96365; 96367; 96375; 99285; J0696; J2405; J2930; J3475

== ENCOUNTER → 2023-07-16 00:19 | Outpatient (BNV) | payer MEDICARE, MEDICAID, SELFPAY | PROVIDERS: Emergency Provider Emergency Medicine; PCP Internal Medicine; Visit Provider Internal Medicine Cardiovascular Disease | DX: R06.02 Shortness of breath (principal) | CPT/HCPCS: 93010 ==

== ENCOUNTER 2023-08-08 11:28 | Outpatient (REF) | payer MEDICARE, MEDICAID, SELFPAY ==
[2023-08-08 11:45] LABS: MANUAL DIFF FLAG NO
[2023-08-08 12:22] LABS: Basophils Percent Auto 0.2 % (0-2); Eosinophils Absolute Auto 0.1 X10*3/uL (0.0-0.4); Eosinophils Percent Auto 1.7 % (0-4); Hematocrit 34.3 % (42.0-52.0); Hemoglobin 11.7 g/dl (14.0-18.0); Imm Gran Abs Auto 0.06 X10*3/uL (0.00-0.03); Imm Gran Pct Auto 1.5 % (0.0-0.4); Lymphocytes Absolute Auto 1.1 X10*3/uL (1.2-4.9); Mean Corpuscular HGB Conc 34.1 g/dl (31.0-36.0); Mean Corpuscular Hemoglobin 32.1 pg (27.0-33.0); Monocytes Absolute Auto 0.5 X10*3/uL (0.1-1.2); Monocytes Percent Auto 11.9 % (2-11); Neutrophils Absolute Auto 2.3 x10*3/uL (2.0-8.3); Neutrophils Percent Auto 56.7 % (45-73); Platelet Count 250 X10*3/uL (160-400); Red Blood Count 3.65 X10*6/uL (4.60-5.80); Red Cell Distribution Width 13.5 % (11.0-16.0)
[2023-08-08 12:28] LABS: Estimated Average Glucose 131 mg/dL; Hemoglobin A1c % 6.2 % (<6.0)
[2023-08-08 12:54] LABS: Alanine Aminotransferase 17 U/L (0-40); Albumin Level 3.5 g/dL (3.5-5.0); Alkaline Phosphatase 41 U/L (39-117); Anion Gap 9 (12-20); Aspartate Amino Transferase 13 U/L (5-37); Bilirubin Total 0.6 mg/dL (0.0-1.0); Blood Urea Nitrogen 8 mg/dL (9-16); Calcium 8.9 mg/dL (8.4-10.2); Carbon Dioxide 26 mmol/L (22-29); Chloride 102 mmol/L (96-108); Cholesterol 172 mg/dL (<200); Estimated Glomerular Filt Rate > 60; Glucose Fasting 139 mg/dL (60-99); HDL Cholesterol 51 mg/dL (>40); LDL Cholesterol Calculated 104 mg/dL (<100); Potassium 3.6 mmol/L (3.3-5.1); Sodium 133 mmol/L (135-145); Total Protein 6.7 g/dL (6.5-8.0); Triglycerides 86 mg/dL (<150)
[2023-08-08 13:10] LABS: TSH reflex Free T4 1.01 uIU/mL (0.32-4.0); Vitamin D 25-OH Total 31.2 ng/mL (>30)
[2023-08-08 13:35] LABS: Appearance Urine Clear; Color Urine Yellow; Glucose Urine UA Negative (Negative); Leukocyte Esterase Urine Negative (Negative); Nitrite Urine Negative (Negative); PH 7.5 (5.0-9.0); Specific Gravity - Urine 1.015 (1.005-1.025); Urine Blood Negative (Negative); Urine Ketones Negative (Negative); Urine Protein Trace mg/dL (Neg-Trace)
[2023-08-08 14:09] LABS: Creatinine Urine 109.89 mg/dL; Microalbum/Creatinine Ratio Ur 77.3 ug/mg cr (<30)
== END 2023-08-08 11:29 | disposition home or self-care (01) ==
LOC: HO.LAB 11:28
PROVIDERS: PCP Internal Medicine; Visit Provider Family Medicine
DX: I10 Essential (primary) hypertension (principal); E55.9 Vitamin D deficiency, unspecified; R30.0 Dysuria; E78.00 Pure hypercholesterolemia, unspecified; E11.9 Type 2 diabetes mellitus without complications; F20.9 Schizophrenia, unspecified
CPT/HCPCS: 36415; 80053; 80061; 81003; 82043; 82306; 82570; 83036; 84443; 85025

== ENCOUNTER 2023-08-09 15:49 | Outpatient (AMB) | payer MEDICARE, MEDICAID, SELFPAY ==
--- NOTE | 2023-08-09 15:52 | A.OFFPC_ITS ---
Vital Signs 08/09/23 15:54 Height 5 ft 10 in Weight 179 lb 4 oz BMI 25.7 BP 110/50 L Blood Pressure Location Lt brachial Position Sitting Pulse 90 Pulse Source Pulse Oximeter Pulse Oximetry (%) 95 Oxygen Delivery Method Room Air Intake Visit Reasons: 4 months Intake Note: Patient is here to follow up on HTN, DM, Parkinson's. Associate Professor Of Biostatistics Required: No Setter Cold Rolling Machine: Present Accompanied by: Sister Allergies haloperidol [From HALDOL] Allergy (Intermediate, Verified 11/23/23 15:48) BODY STIFF aspirin [ASA] Allergy (Unknown, Verified 11/23/23 15:48) UNKNOWN glyburide [GLYBURIDE] Allergy (Unknown, Verified 11/23/23 15:48) UNKNOWN Medication List - Last Reconciled 08/09/23 by Dannie Richard MD carbidopa-levodopa 25-100 mg tabs PO TID cholecalciferol (vitamin D3) 25 mcg PO DAILY fenofibrate nanocrystallized 145 mg PO DAILY 90 days lisinopril 5 mg PO DAILY 90 days omega-3 fatty acids (Fish Oil Concentrate) 1,000 mg PO TID risperidone 3 mg PO QAM sitagliptin phosphate (Januvia) 50 mg PO DAILY 90 days terazosin 1 mg PO BEDTIME 90 days Tobacco use date assessed: 08/09/23 Fall risk assessment: 1 Fall in past year Last assessed Fall Risk: 08/09/23 Dental Screening Dental Screen Date: 08/09/23 Did you have a dental visit in the last 12 months?: No Did you have a dental problem in the last 6 months where you did not have access to dental care?: No Was dental information given to patient?: No HPI 4 months HPI Details Patient comes in today for his follow up visit; this is also his F follow up visit He apparently contracted influenza A last month and was supposedly found by family members to be somnolent and lethargic 911 was called his family members were c oncerned when they could not revive him Patient was brought to the ER at [facility] for further evaluation and was found to be hypoxic with scattered wheezing and tested positive for influenza A He was also noted to have significant hyponatremia on initial workups with a serum sodium of 116 He was stabilized and was subsequently transferred to [facility] for more intensive medical management When patient arrived at [facility] he was subsequently intubated for airway protection due to his altered mental status and respiratory distress He was admitted initially to the ICU His overall condition gradually improved reportedly with medical management and he was successfully extubated a few days later and was transferred to the medical floor The rest of the stay was reportdly uneventful and he was then transferred to short-term rehab at [facility], where patient spent the next 1-2 weeks for physical therapy and strengthening Patient states that he has been home for over a week now and currently feels okay He denies any headaches or dizziness Denies any chest pains, no increased shortness of breath No nausea / vomiting, no abdominal pain No change in bowel habits noted He had his follow-up labs done yesterday - to discuss his results [facility] Medical History Parkinson's disease Primary osteoarthritis, right shoulder Vitamin D deficiency Mixed hyperlipidemia Obesity (BMI 30-39.9) Smoker Schizophrenia Hyponatremia Benign essential hypertension Diabetes mellitus Surgical History History of eye surgery Family History Father CVD (cardiovascular disease) Cancer Mother Cancer CVD (cardiovascular disease) Stroke Other Mental health problem Social History Housing: House Alcohol intake: former Patient Tobacco Use Status: Former Tobacco user Tobacco use type: Cigarette Cigarettes Per Day: 16 e-Cigarette/Vaping Use: Never Used Second Hand Smoke Exposure: Yes service: No Current occupational status: disabled Cognitive needs: Yes (Parkinson's disease) Hearing needs: No Vision needs: No Questionnaire PHQ-9 Over the last 2 weeks, how often have you been bothered by any of the following problems? 1. Little interest or pleasure in doing things: not at all 2. Feeling down, depressed, or hopeless: not at all 3. Trouble falling or staying asleep, or sleeping too much: not at all 4. Feeling tired or having little energy: not at all 5. Poor appetite or overeating: not at all 6. Feeling bad about yourself - or that you are a failure or have let yourself or your family down: not at all 7. Trouble concentrating on things, such as reading the newspaper or watching television: not at all 8. Moving or speaking so slowly that other people could have noticed. Or the opposite - being so fidgety or restless that you have been moving around a lot more than usual: not at all 9. Thoughts that you would be better off or of hurting yourself in some way: not at all Total score: 0 Depression Screening Interpretation: Negative Depression Screening Done: Yes 31505 - PHQ-9 Billing: Yes Source: Developed by Drs. Be Ortiz, Rubina Kuhn, Adeel Mccall and colleagues, with an educational annia from [employer]. Thrive Questionnaire Date Thrive assessed: 08/09/23 I am a: Patient What is your living situation today?: I have a steady place to live Within the past 12 months, did the food you bought not last and you didn't have the money to get more?: Never true Within the past 12 months, did you worry whether your food would run out before you got money to buy more?: Never true Do you have trouble paying for medicines?: No Do you have trouble getting transportation to medical appointments?: No Do you have trouble paying your heating and electricity bill?: No Do you have trouble taking care of your child, family member or friend?: No Do you have trouble with day-to-day activities such as bathing, preparing meals, shopping, managing finances, etc.?: No Are you currently unemployed and looking for a job?: No Are you interested in more education?: No Currently or been in a relationship where the following occur: no concerns reported THRIVE Score: 0 AUDIT C Alcohol Use Questionnaire (AUDIT-C) 1. How often do you have a drink containing alcohol?: Never 3. How often do you have six or more drinks on one occasion?: Never Total Score: 0 Score Reviewed/Action Taken: Yes CYNTHIA-7 AMB Questionnaire CYNTHIA-7 Date CYNTHIA - 7 assessed: 08/09/23 Feeling nervous, anxious, or on edge: 0 = Not at all Not being able to stop or control worryin = Not at all Worrying too much about different things: 0 = Not at all Trouble relaxin = Not at all Being so restless that it is hard to sit still: 0 = Not at all Becoming easily annoyed or irritable: 0 = Not at all Feeling afraid as if something awful might happen: 0 = Not at all Total CYNTHIA-7 score (0-4 normal; 5-9 mild; 10-14 moderate; 15-21 severe): 0 Source: Developed by Drs. Be Ortiz, Rubina Kuhn, Adeel Mccall and colleagues, with an educational annia from [employer]. Review of Systems Const Denies chills, Reports fatigue, Denies fever(s) and Denies headache(s) ENT Denies dysphagia, Denies dizziness, Denies otalgia, Denies headache(s), Denies neck pain, Denies odynophagia and Denies sore throat Card Denies chest pain, Denies palpitations and Denies dyspnea Resp Denies cough and Denies dyspnea GI Denies abdominal pain, Denies constipation, Denies dysphagia, Denies heartburn, Denies diarrhea, Denies nausea, Denies odynophagia and Denies vomiting Denies dysuria, Reports nocturia (lately) and Reports urinary frequency Musc Denies arthralgias, Denies neck pain and Reports stiffness Skin/Breast Denies rash Neuro Reports Neuro-related abnormal movements (overall movements slowing down), Denies dizziness, Denies headache(s) and Reports tremor(s) (due to Parkinson's) Endo Reports fatigue and Denies palpitations Physical exam (Primary Care) Vital Signs: Last Vital Signs Pulse 90 08/09/23 15:54 BP 110/50 L 08/09/23 15:54 Pulse Ox 95 08/09/23 15:54 Oxygen Delivery Method Room Air 08/09/23 15:54 BMI result Body Mass Index 25.7 Tobacco/Smoking Status: Tobacco use Status Tobacco use date assessed 08/09/23 08/09/23 15:57 Patient Tobacco Use Status Former Tobacco user 08/09/23 16:03 Tobacco use type Cigarette 08/09/23 16:02 e-Cigarette/Vaping Use Never Used 08/09/23 16:02 PHQ-9: PHQ-9 Score PHQ-9: Total score 0 08/10/23 12:40 Depression Screening Interpretation: Negative Thrive Assessment: Date of Thrive Assessment Date Thrive assessed 08/09/23 08/09/23 15:57 Currently or been in a relationship where the following occur: no concerns reported Const General: no acute distress and alert HENMT Ears: TM's normal bilaterally and EAC's normal Throat: Yes posterior oropharynx normal and Yes tonsils normal (no TP congestion) Neck Neck: Yes no lymphadenopathy and Yes supple Thyroid: Thyroid normal Resp Auscultation: clear to auscultation bilaterally, no rales and no wheezes Cardio Rate: regular rate Rhythm: regular rhythm Heart sounds: no murmurs GI Palpation (GI): Soft to palpation and nontender Auscultation: normal bowel sounds General: Yes no CVA tenderness Back/Spine/Pelvis Back: no CVA tenderness Thoracic/Lumbar Spine: No lumbar spinal tenderness Skin Rashes: no rashes Neuro Other: (+) multiple large varicosities noted over both lower extremities Motor exam (neuro): Tremors during motor activity present (in both hands) Extrem General: Yes no clubbing, cyanosis or edema Results Reviewed Results Reviewed: Laboratory Tests 08/08/23 08/08/23 11:43 11:45 WBC 4.0 L Hgb 11.7 L Hct 34.3 L Plt Count 250 Sodium 133 L Potassium 3.6 Estimated GFR > 60 Fasting Glucose 139 H Hemoglobin A1c % 6.2 H Calcium 8.9 AST 13 ALT 17 Triglycerides 86 Cholesterol 172 LDL Cholesterol, Calc 104 H HDL Cholesterol 51 25-OH Vitamin D Total 31.2 TSH 1.01 Ur Specific [place] 1.015 Urine Protein Trace Urine Glucose (UA) Negative Urine Blood Negative Urine Nitrite Negative Ur Leukocyte Esterase Negative Microalb/Creat Ratio 77.3 H Assessment and Plan Assessment & Plan (1) Mixed hyperlipidemia: Code(s): E78.2 - Mixed hyperlipidemia Plan: Results of his labs done yesterday reviewed and discussed with patient - his lipids have increased slightly from previous but advised that considering what he went through last month, this is not unexpected and we will just keep an eye on things for now Reinforced low cholesterol diet Continue Fenofibrate 145 mg QD and Fish oil capsules 1000 mg TID Will recheck his labs and fasting lipids in 3 months for follow-up (2) Benign essential hypertension: Code(s): I10 - Essential (primary) hypertension Plan: Reinforced low-sodium diet -? goal is systolic BP of 120 mm or less Continue Lisinopril 5 mg?QD (3) Diabetes mellitus: Code(s): E11.9 - Type 2 diabetes mellitus without complications Qualifiers: Diabetes mellitus complication status: without complication Diabetes mellitus joint terminal attack controller insulin use: without [place] [facility] use Diabetes mellitus type: type 2 Qualified Code(s): E11.9 - Type 2 diabetes mellitus without complications Plan: HgbA1c was at 6.2% on his labs done yesterday (was previously at 5.8% a few months ago) -? goal is < 7.0% Reinforced diabetic diet Continue Januvia 50 mg QD (4) Hyponatremia: Code(s): E87.1 - Hypo-osmolality and hyponatremia Plan: Serum sodium level is now near-normal at 133 on his recent labs Serum osmolality checked previously was normal Will continue to monitor his serum electrolytes level closely (5) Parkinson's disease: Code(s): G20 - Parkinson's disease Qualifiers: Dyskinesia presence: without dyskinesia Fluctuating manifestations: wi thout fluctuating manifestations Qualified Code(s): G20.A1 - Parkinson's disease without dyskinesia, without mention of fluctuations Plan: Continue Carbidopa-Levodopa 25-100 mg TID MRI of the brain done in 04/2021 revealed very mild chronic white matter microangiopathic changes and generalized parenchymal volume loss, with no acute findings Follow-up with neurology as scheduled (6) Primary osteoarthritis, right shoulder: Code(s): M19.011 - Primary osteoarthritis, right shoulder Plan: X-rays of the right shoulder done in 12/2020 revealed (+) moderate OA changes States that his shoulder pain seems to have subsided and has not been bothering him lately Will consider referring him to orthopedics if his shoulder flares up again (7) Vitamin D deficiency: Code(s): E55.9 - Vitamin D deficiency, unspecified Plan: Continue Vitamin D3 1000 units QD (8) Varicose veins of lower extremities without ulcer or inflammation: Code(s): I83.90 - Asymptomatic varicose veins of unspecified lower extremity Qualifiers: Laterality: bilateral Qualified Code(s): I83.93 - Asymptomatic varicose veins of bilateral lower extremities Plan: c/o pain in legs and over varicosities at times but symptoms are mostly mild Have offered to refer him to vascular surgery but patient declined referral; st ates that he will call for referral if his symptoms increase or if he changes his mind about this (9) Schizophrenia: Code(s): F20.9 - Schizophrenia, unspecified Qualifiers: Schizophrenia type: unspecified Qualified Code(s): F20.9 - Schizophrenia, unspecified Plan: Continue Risperidone at 3 mg in AM; his 4 mg PM dose was apparently discontinued by psychiatry a few weeks ago Follow-up with Psychiatry as scheduled (10) Smoker: Code(s): F17.200 - Nicotine dependence, unspecified, uncomplicated Plan: Counseled again on COMPLETE smoking cessation (11) Obesity (BMI 30-39.9): Code(s): E66.9 - Obesity, unspecified Plan: Reinforced diet/exercise as tolerated/lose weight Plan Follow up in 3 months Orders: Orders Comprehensive Goessel. Panel Fast 3 Months E78.00 - Pure hypercholesterolemia, unspecified Lipid Panel 3 Months E78.00 - Pure hypercholesterolemia, unspecified Hemoglobin A1c 3 Months E11.9 - Type 2 diabetes mellitus without complications Microalbumin, Random (w Creat) 3 Months E11.9 - Type 2 diabetes mellitus without complications UA CC w/rflx Micro + Cult 3 Months R30.0 - Dysuria Creatine Kinase Total 3 Months M62.82 - Rhabdomyolysis Complete Blood Count Auto Diff 3 Months D64.9 - Anemia, unspecified TSH reflex Free T4 3 Months E78.00 - Pure hypercholesterolemia, unspecified Magnesium 3 Months E83.42 - Hypomagnesemia Vitamin B12 and Folate 3 Months E53.8 - Deficiency of other specified B group vitamins Vitamin D 25-OH Total 3 Months E55.9 - Vitamin D deficiency, unspecified Coding Level of Care Code Est Pt Level 4 (20104) Complex EM visit Add On G2211 Diagnoses Mixed hyperlipidemia E78.2 Benign essential hypertension I10 Type 2 diabetes mellitus without complication, without long-term current use of insulin E11.9 Diabetes mellitus complication status: without complication Diabetes mellitus joint terminal attack controller insulin use: without [place] [facility] use Diabetes mellitus type: type 2 Hyponatremia E87.1 Parkinson's disease without dyskinesia or fluctuating manifestations G20.A1 Dyskinesia presence: without dyskinesia Fluctuating manifestations: without fluctuating manifestations Primary osteoarthritis, right shoulder M19.011 Vitamin D deficiency E55.9 Varicose veins of both lower extremities without ulcer or inflammation I83.93 Laterality: bilateral Schizophrenia, unspecified type F20.9 Schizophrenia type: unspecified Smoker F17.200 Obesity (BMI 30-39.9) E66.9
[2023-08-09 15:54] VITALS: BP 110/50; PULSE 90; O2SAT 95; BMI 25.7
== END 2023-08-09 16:49 | disposition home or self-care (01) ==
PROVIDERS: PCP Internal Medicine; Visit Provider Internal Medicine
DX: E78.2 Mixed hyperlipidemia (principal); I10 Essential (primary) hypertension; E11.9 Type 2 diabetes mellitus without complications; E87.1 Hypo-osmolality and hyponatremia; G20.A1 Parkinson's disease without dyskinesia, without mention of fluctuations; M19.011 Primary osteoarthritis, right shoulder; E55.9 Vitamin D deficiency, unspecified; I83.93 Asymptomatic varicose veins of bilateral lower extremities; F20.9 Schizophrenia, unspecified; F17.200 Nicotine dependence, unspecified, uncomplicated; E66.9 Obesity, unspecified
CPT/HCPCS: 99214; G2211

== ENCOUNTER 2023-11-22 12:11 | Outpatient (REF) | payer MEDICARE, MEDICAID, SELFPAY ==
[2023-11-22 12:41] LABS: MANUAL DIFF FLAG NO
[2023-11-22 13:29] LABS: Basophils Percent Auto 0.4 % (0-2); Eosinophils Percent Auto 0.9 % (0-4); Hematocrit 38.8 % (42.0-52.0); Hemoglobin 13.6 g/dl (14.0-18.0); Imm Gran Abs Auto 0.02 X10*3/uL (0.00-0.03); Imm Gran Pct Auto 0.4 % (0.0-0.4); Lymphocytes Absolute Auto 1.3 X10*3/uL (1.2-4.9); Lymphocytes Percent Auto 29.1 % (20-40); Mean Corpuscular HGB Conc 35.1 g/dl (31.0-36.0); Mean Corpuscular Hemoglobin 31.4 pg (27.0-33.0); Mean Corpuscular Volume 89.6 fL (80.0-98.0); Mean Platelet Volume 10.1 fL (9.4-12.4); Monocytes Absolute Auto 0.5 X10*3/uL (0.1-1.2); Monocytes Percent Auto 11.7 % (2-11); Neutrophils Absolute Auto 2.7 x10*3/uL (2.0-8.3); Neutrophils Percent Auto 57.5 % (45-73); Platelet Count 186 X10*3/uL (160-400); Red Blood Count 4.33 X10*6/uL (4.60-5.80); Red Cell Distribution Width 12.2 % (11.0-16.0); White Blood Count 4.6 X10*3/uL (4.8-10.8)
[2023-11-22 13:30] LABS: Appearance Urine Clear; Color Urine Yellow; Glucose Urine UA Negative (Negative); Leukocyte Esterase Urine Trace (Negative); Nitrite Urine Negative (Negative); UMIC TRIGGER UACC YES; Urine Blood Negative (Negative); Urine Ketones Negative (Negative); Urine Protein Negative (Neg-Trace)
[2023-11-22 13:33] LABS: Bacteria Urine None Seen (None Seen); Hyaline Casts Urine 0-2 /LPF (0-2); RBC Urine 0-2 /HPF (0-2); Squamous Epithelial Cell Urine 0-2 /HPF (0-2); WBC Urine 0-5 /HPF (0-5)
[2023-11-22 13:53] LABS: Estimated Average Glucose 131 mg/dL; Hemoglobin A1C 150.7361 umol/L; Hemoglobin A1c % 6.2 % (<6.0)
[2023-11-22 14:07] LABS: Creatinine Urine 68.52 mg/dL; Microalbumin Urine < 5.0 mg/L
[2023-11-22 14:08] LABS: Alanine Aminotransferase 17 U/L (0-40); Albumin Level 4.4 g/dL (3.5-5.0); Alkaline Phosphatase 31 U/L (39-117); Anion Gap 12 (12-20); Aspartate Amino Transferase 18 U/L (5-37); Bilirubin Total 0.6 mg/dL (0.0-1.0); Blood Urea Nitrogen 10 mg/dL (9-16); Calcium 9.2 mg/dL (8.4-10.2); Carbon Dioxide 24 mmol/L (22-29); Chloride 102 mmol/L (96-108); Cholesterol 167 mg/dL (<200); Estimated Glomerular Filt Rate > 60; Glucose Fasting 118 mg/dL (60-99); HDL Cholesterol 46 mg/dL (>40); LDL Cholesterol Calculated 109 mg/dL (<100); Potassium 4.1 mmol/L (3.3-5.1); Sodium 134 mmol/L (135-145); Total Protein 7.2 g/dL (6.5-8.0); Triglycerides 63 mg/dL (<150)
[2023-11-22 14:18] LABS: TSH reflex Free T4 0.65 uIU/mL (0.32-4.0); Vitamin D 25-OH Total 41.2 ng/mL (>30)
[2023-11-22 14:26] LABS: Folate 12.6 ng/mL (> or = 4.0); Vitamin B12 581 pg/mL (200-900)
== END 2023-11-22 12:12 | disposition home or self-care (01) ==
LOC: HO.LAB 12:11
PROVIDERS: PCP Internal Medicine; Visit Provider Internal Medicine
DX: E78.00 Pure hypercholesterolemia, unspecified (principal); E11.9 Type 2 diabetes mellitus without complications; M62.82 Rhabdomyolysis; D64.9 Anemia, unspecified; E83.42 Hypomagnesemia; E53.8 Deficiency of other specified B group vitamins; E55.9 Vitamin D deficiency, unspecified
CPT/HCPCS: 36415; 80053; 80061; 81001; 82043; 82306; 82550; 82570; 82607; 82746; 83036; 83735; 84443; 85025

== ENCOUNTER 2023-11-23 15:18 | Outpatient (AMB) | payer MEDICARE, MEDICAID, SELFPAY ==
[2023-11-23 15:19] VITALS: BP 130/66; PULSE 68; O2SAT 97; BMI 27.8
--- NOTE | 2023-11-23 15:19 | MHC.PC.OV ---
Vital Signs 11/23/23 15:19 Height 5 ft 10 in Weight 194 lb BMI 27.8 BP 130/66 Blood Pressure Location Lt brachial Position Sitting Pulse 68 Pulse Source Pulse Oximeter Pulse Oximetry (%) 97 Oxygen Delivery Method Room Air Intake Visit Reasons: 3mth f/u Education Liaison Required: No Allergies haloperidol [From HALDOL] Allergy (Intermediate, Verified 11/23/23 15:48) BODY STIFF aspirin [ASA] Allergy (Unknown, Verified 11/23/23 15:48) UNKNOWN glyburide [GLYBURIDE] Allergy (Unknown, Verified 11/23/23 15:48) UNKNOWN Medication List - Last Reconciled 11/23/23 by Dannie Richard MD carbidopa-levodopa 25-100 mg tabs PO TID cholecalciferol (vitamin D3) 25 mcg PO DAILY fenofibrate nanocrystallized 145 mg PO DAILY 90 days lisinopril 5 mg PO DAILY 90 days omega-3 fatty acids (Fish Oil Concentrate) 1,000 mg PO TID risperidone 3 mg PO QAM sitagliptin phosphate (Januvia) 50 mg PO DAILY 90 days terazosin 1 mg PO BEDTIME 90 days Tobacco use date assessed: 08/09/23 Fall risk assessment: No Falls in past year Last assessed Fall Risk: 11/23/23 Dental Screening Dental Screen Date: 08/09/23 HPI 3mth f/u HPI Details Patient comes in today for his follow up visit States that he feels okay He appears to have gained all of the weight that he lost a few months ago back now in the past few months He denies any headaches or dizziness Denies any chest pains, no SOB No nausea/vomiting, no abdominal pain No change in bowel habits noted Had his follow up labs done yesterday - to discuss his results [facility] Medical History Parkinson's disease Primary osteoarthritis, right shoulder Vitamin D deficiency Mixed hyperlipidemia Obesity (BMI 30-39.9) Smoker Schizophrenia Hyponatremia Benign essential hypertension Diabetes mellitus Surgical History History of eye surgery Family History Father CVD (cardiovascular disease) Cancer Mother Cancer CVD (cardiovascular disease) Stroke Other Mental health problem Social History Housing: House Alcohol intake: former Patient Tobacco Use Status: Former Tobacco user Tobacco use type: Cigarette Cigarettes Per Day: 16 e-Cigarette/Vaping Use: Never Used Second Hand Smoke Exposure: Yes service: No Current occupational status: disabled Cognitive needs: Yes (Parkinson's disease) Hearing needs: No Vision needs: No Questionnaire Thrive Questionnaire Date Thrive assessed: 08/09/23 AUDIT C Alcohol Use Questionnaire (AUDIT-C) 1. How often do you have a drink containing alcohol?: Never 3. How often do you have six or more drinks on one occasion?: Never Total Score: 0 Score Reviewed/Action Taken: Yes CYNTHIA-7 AMB Questionnaire CYNTHIA-7 Date CYNTHIA - 7 assessed: 08/09/23 Source: Developed by Drs. Be Ortiz, Rubina Kuhn, Adeel Mccall and colleagues, with an educational annia from [employer]. Review of Systems Const Denies chills, Reports fatigue, Denies fever(s) and Denies headache(s) ENT Denies dysphagia, Denies dizziness, Denies otalgia, Denies headache(s), Denies neck pain, Denies odynophagia and Denies sore throat Card Denies chest pain, Denies palpitations and Denies dyspnea Resp Denies cough and Denies dyspnea GI Denies abdominal pain, Denies constipation, Denies dysphagia, Denies heartburn, Denies diarrhea, Denies nausea, Denies odynophagia and Denies vomiting Denies dysuria, Reports nocturia (lately) and Reports urinary frequency Musc Denies arthralgias, Denies neck pain and Reports stiffness Skin/Breast Denies rash Neuro Reports Neuro-related abnormal movements (overall movements slowing down), Denies dizziness, Denies headache(s) and Reports tremor(s) (due to Parkinson's) Endo Reports fatigue and Denies palpitations Physical exam (Primary Care) Vital Signs: Last Vital Signs Pulse 68 11/23/23 15:19 BP 130/66 11/23/23 15:19 Pulse Ox 97 11/23/23 15:19 Oxygen Delivery Method Room Air 11/23/23 15:19 BMI result Body Mass Index 27.8 Tobacco/Smoking Status: Tobacco use Status Tobacco use date assessed 08/09/23 11/23/23 15:22 Patient Tobacco Use Status Former Tobacco user 11/23/23 15:22 Tobacco use type Cigarette 11/23/23 15:22 e-Cigarette/Vaping Use Never Used 11/23/23 15:22 Thrive Assessment: Date of Thrive Assessment Date Thrive assessed 08/09/23 11/23/23 15:22 Const General: no acute distress and alert HENMT Ears: TM's normal bilaterally and EAC's normal Throat: Yes posterior oropharynx normal and Yes tonsils normal (no TP congestion) Neck Neck: Yes no lymphadenopathy and Yes supple Thyroid: Thyroid normal Resp Auscultation: clear to auscultation bilaterally, no rales and no wheezes Cardio Rate: regular rate Rhythm: regular rhythm Heart sounds: no murmurs GI Palpation (GI): Soft to palpation and nontender Auscultation: normal bowel sounds General: Yes no CVA tenderness Back/Spine/Pelvis Back: no CVA tenderness Thoracic/Lumbar Spine: No lumbar spinal tenderness Skin Rashes: no rashes Neuro Other: (+) multiple large varicosities noted over both lower extremities Motor exam (neuro): Tremors during motor activity present (in both hands) Extrem General: Yes no clubbing, cyanosis or edema Results Reviewed Results Reviewed: Laboratory Tests 11/22/23 11/22/23 12:39 13:12 WBC 4.6 L Hgb 13.6 L Hct 38.8 L Plt Count 186 D Sodium 134 L Potassium 4.1 Creatinine 0.92 Estimated GFR > 60 Fasting Glucose 118 H Hemoglobin A1c % 6.2 H Calcium 9.2 Magnesium 2.0 AST 18 ALT 17 Total Creatine Kinase 65 Triglycerides 63 Cholesterol 167 LDL Cholesterol, Calc 109 H HDL Cholesterol 46 Vitamin B12 581 25-OH Vitamin D Total 41.2 TSH 0.65 Ur Specific [place] 1.010 Urine Protein Negative Urine Glucose (UA) Negative Urine Blood Negative Urine Nitrite Negative Ur Leukocyte Esterase Trace H Assessment and Plan Assessment & Plan (1) Mixed hyperlipidemia: Code(s): E78.2 - Mixed hyperlipidemia Plan: Results of his labs done yesterday reviewed and discussed with patient Reinforced low cholesterol diet Continue Fenofibrate 145 mg QD and Fish oil capsules 1000 mg TID Will recheck his labs and fasting lipids in 4 months for follow-up (2) Benign essential hypertension: Code(s): I10 - Essential (primary) hypertension Plan: Reinforced low-sodium diet -? goal is systolic BP of 120 mm or less Continue Lisinopril 5 mg?QD (3) Diabetes mellitus: Code(s): E11.9 - Type 2 diabetes mellitus without complications Qualifiers: Diabetes mellitus type: type 2 Diabetes mellitus half-way insulin use: without half-way use Diabetes mellitus complication status: without complication Qualified Code(s): E11.9 - Type 2 diabetes mellitus without complications Plan: His HgbA1c was unchanged from previous at 6.2% on his recent labs - goal is < 7.0% Reinforced diabetic diet Continue Januvia 50 mg QD (4) Hyponatremia: Code(s): E87.1 - Hypo-osmolality and hyponatremia Plan: Serum sodium level is now near-normal at 134 on his labs done yesterday Serum osmolality checked previously was normal Will continue to monitor his serum electrolytes level closely (5) Parkinson's disease: Code(s): G20 - Parkinson's disease Qualifiers: Dyskinesia presence: without dyskinesia Fluctuating manifestations: without fluctuating manifestations Qualified Code(s): G20.A1 - Parkinson's disease without dyskinesia, without mention of fluctuations Plan: Continue Carbidopa-Levodopa 25-100 mg TID MRI of the brain done in 04/2021 revealed very mild chronic white matter microangiopathic changes and generalized parenchymal volume loss, with no acute findings Follow-up with neurology as scheduled (6) Primary osteoarthritis, right shoulder: Code(s): M19.011 - Primary osteoarthritis, right shoulder Plan: X-rays of the right shoulder done in 12/2020 revealed (+) moderate OA changes States that his shoulder pain seems to have subsided and has not been bothering him lately Will consider referring him to orthopedics if his shoulder flares up again (7) Vitamin D deficiency: Code(s): E55.9 - Vitamin D deficiency, unspecified Plan: Continue Vitamin D3 1000 units QD (8) Varicose veins of lower extremities without ulcer or inflammation: Code(s): I83.90 - Asymptomatic varicose veins of unspecified lower extremity Qualifiers: Laterality: bilateral Qualified Code(s): I83.93 - Asymptomatic varicose veins of bilateral lower extremities Plan: c/o pain in legs and over varicosities at times but symptoms are mostly mild Have offered to refer him to vascular surgery but patient declined referral; states that he will call for referral if his symptoms increase or if he changes his mind about this (9) Schizophrenia: Code(s): F20.9 - Schizophrenia, unspecified Qualifiers: Schizophrenia type: unspecified Qualified Code(s): F20.9 - Schizophrenia, unspecified Plan: Continue Risperidone at 3 mg Q AM Follow-up with Psychiatry as scheduled (10) Smoker: Code(s): F17.200 - Nicotine dependence, unspecified, uncomplicated Plan: Counseled again on COMPLETE smoking cessation (11) Obesity (BMI 30-39.9): Code(s): E66.9 - Obesity, unspecified Plan: Reinforced diet/exercise as tolerated/lose weight Plan Follow up in 4 months Orders: Orders Lipid Panel 4 Months E78.00 - Pure hypercholesterolemia, unspecified Hemoglobin A1c 4 Months E11.9 - Type 2 diabetes mellitus without complications Complete Blood Count Auto Diff 4 Months D64.9 - Anemia, unspecified Comprehensive [place]. Panel Fast 4 Months E78.00 - Pure hypercholesterolemia, unspecified TSH reflex Free T4 4 Months E78.00 - Pure hypercholesterolemia, unspecified UA CC w/rflx Micro + Cult 4 Months R30.0 - Dysuria Vitamin D 25-OH Total 4 Months E55.9 - Vitamin D deficiency, unspecified Microalbumin, Random (w Creat) 4 Months E11.9 - Type 2 diabetes mellitus without complications Coding Level of Care Code Est Pt Level 4 (29529) Complex EM visit Add On G2211 Diagnoses Mixed hyperlipidemia E78.2 Benign essential hypertension I10 Type 2 diabetes mellitus without complication, without long-term current use of insulin E11.9 Diabetes mellitus type: type 2 Diabetes mellitus 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
== END 2023-11-23 16:07 | disposition home or self-care (01) ==
PROVIDERS: PCP Internal Medicine; Visit Provider Internal Medicine
DX: E11.9 Type 2 diabetes mellitus without complications (principal); F20.9 Schizophrenia, unspecified; E78.2 Mixed hyperlipidemia; G20.A1 Parkinson's disease without dyskinesia, without mention of fluctuations; I10 Essential (primary) hypertension; E87.1 Hypo-osmolality and hyponatremia; M19.011 Primary osteoarthritis, right shoulder; E55.9 Vitamin D deficiency, unspecified; I83.93 Asymptomatic varicose veins of bilateral lower extremities; F17.200 Nicotine dependence, unspecified, uncomplicated; E66.9 Obesity, unspecified
CPT/HCPCS: 99214; G2211

== ENCOUNTER 2024-04-03 11:58 | Outpatient (REF) | payer MEDICARE, MEDICAID, SELFPAY ==
[2024-04-03 12:13] LABS: MANUAL DIFF FLAG NO
[2024-04-03 12:44] LABS: Basophils Percent Auto 0.2 % (0-2); Eosinophils Absolute Auto 0.1 X10*3/uL (0.0-0.4); Eosinophils Percent Auto 1.2 % (0-4); Hematocrit 36.8 % (42.0-52.0); Hemoglobin 12.8 g/dl (14.0-18.0); Imm Gran Abs Auto 0.01 X10*3/uL (0.00-0.03); Imm Gran Pct Auto 0.2 % (0.0-0.4); Lymphocytes Absolute Auto 1.5 X10*3/uL (1.2-4.9); Lymphocytes Percent Auto 29.5 % (20-40); Mean Corpuscular HGB Conc 34.8 g/dl (31.0-36.0); Mean Corpuscular Hemoglobin 31.8 pg (27.0-33.0); Mean Corpuscular Volume 91.3 fL (80.0-98.0); Mean Platelet Volume 10.2 fL (9.4-12.4); Monocytes Absolute Auto 0.6 X10*3/uL (0.1-1.2); Monocytes Percent Auto 11.8 % (2-11); Neutrophils Absolute Auto 2.9 x10*3/uL (2.0-8.3); Neutrophils Percent Auto 57.1 % (45-73); Platelet Count 193 X10*3/uL (160-400); Red Blood Count 4.03 X10*6/uL (4.60-5.80); Red Cell Distribution Width 12.1 % (11.0-16.0)
[2024-04-03 12:47] LABS: Appearance Urine Clear; Color Urine Yellow; Glucose Urine UA Negative (Negative); Leukocyte Esterase Urine Negative (Negative); Nitrite Urine Negative (Negative); Specific Gravity - Urine 1.015 (1.005-1.025); Urine Blood Negative (Negative); Urine Ketones Negative (Negative); Urine Protein Negative (Neg-Trace)
[2024-04-03 13:20] LABS: Creatinine Urine 89.29 mg/dL; Microalbum/Creatinine Ratio Ur 6.7 ug/mg cr (<30)
[2024-04-03 13:21] LABS: Alanine Aminotransferase 19 U/L (0-40); Albumin Level 4.5 g/dL (3.5-5.0); Alkaline Phosphatase 33 U/L (39-117); Anion Gap 9 (12-20); Aspartate Amino Transferase 20 U/L (5-37); Bilirubin Total 0.6 mg/dL (0.0-1.0); Blood Urea Nitrogen 10 mg/dL (9-16); Calcium 9.4 mg/dL (8.4-10.2); Carbon Dioxide 28 mmol/L (22-29); Chloride 97 mmol/L (96-108); Cholesterol 150 mg/dL (<200); Estimated Glomerular Filt Rate > 60; Glucose Fasting 127 mg/dL (60-99); HDL Cholesterol 46 mg/dL (>40); LDL Cholesterol Calculated 90 mg/dL (<100); Potassium 4.1 mmol/L (3.3-5.1); Sodium 130 mmol/L (135-145); Total Protein 7.4 g/dL (6.5-8.0); Triglycerides 71 mg/dL (<150)
[2024-04-03 13:39] LABS: TSH reflex Free T4 0.88 uIU/mL (0.32-4.0)
[2024-04-03 21:46] LABS: Estimated Average Glucose 126 mg/dL; Hemoglobin A1C 132.3876 umol/L; Total Hemoglobin (HGBA1C) 3126.3361 umol/L
== END 2024-04-03 11:59 | disposition home or self-care (01) ==
LOC: HO.LAB 11:58
PROVIDERS: PCP Internal Medicine; Visit Provider Internal Medicine
DX: D64.9 Anemia, unspecified (principal); R30.0 Dysuria; E11.9 Type 2 diabetes mellitus without complications; E78.00 Pure hypercholesterolemia, unspecified; E55.9 Vitamin D deficiency, unspecified
CPT/HCPCS: 36415; 80053; 80061; 81003; 82043; 82306; 82570; 83036; 84443; 85025

== ENCOUNTER 2024-04-05 12:22 | Outpatient (AMB) | payer MEDICARE, MEDICAID, SELFPAY ==
[2024-04-05 12:25] VITALS: BP 132/60; PULSE 72; O2SAT 97; BMI 27.7
--- NOTE | 2024-04-05 12:25 | MHC.PC.OV ---
Vital Signs 04/05/24 12:25 Height 5 ft 10 in Weight 193 lb BMI 27.7 BP 132/60 Blood Pressure Location Lt brachial Position Sitting Pulse 72 Pulse Source Pulse Oximeter Pulse Oximetry (%) 97 Oxygen Delivery Method Room Air Intake Visit Reasons: Parkinson's, HTN, hyperlipidemia, DM, COPD Accountant Systems Required: No Accompanied by: Sister Allergies haloperidol [From HALDOL] Allergy (Intermediate, Verified 04/05/24 12:41) BODY STIFF aspirin [ASA] Allergy (Unknown, Verified 04/05/24 12:41) UNKNOWN glyburide [GLYBURIDE] Allergy (Unknown, Verified 04/05/24 12:41) UNKNOWN Medication List - Last Reconciled 04/05/24 by Dannie Richard MD carbidopa-levodopa 25-100 mg tabs PO TID cholecalciferol (vitamin D3) 25 mcg PO DAILY fenofibrate nanocrystallized 145 mg PO DAILY 90 days lisinopril 5 mg PO DAILY 90 days omega-3 fatty acids (Fish Oil Concentrate) 1,000 mg PO TID risperidone 3 mg PO QAM sitagliptin phosphate (Januvia) 50 mg PO DAILY 90 days terazosin 1 mg PO BEDTIME 90 days Tobacco use date assessed: 08/09/23 Fall risk assessment: No Falls in past year Last assessed Fall Risk: 04/05/24 Dental Screening Dental Screen Date: 04/05/24 Did you have a dental visit in the last 12 months?: No Did you have a dental problem in the last 6 months where you did not have access to dental care?: No Was dental information given to patient?: Patient declined HPI Parkinson's, HTN, hyperlipidemia, DM, COPD HPI Details Patient comes in today for his follow up visit States that he feels okay He denies any headaches or dizziness Denies any chest pains, no SOB No nausea/vomiting, no abdominal pain No change in bowel habits noted He had his follow up labs done a couple of days ago - to discuss his results He would also like to get his flu shot today; states that he has never had a pneumonia vaccine in the past and also has not had a tetanus booster in a long time [facility] Medical History Parkinson's disease Primary osteoarthritis, right shoulder Vitamin D deficiency Mixed hyperlipidemia Obesity (BMI 30-39.9) Smoker Schizophrenia Hyponatremia Benign essential hypertension Diabetes mellitus Surgical History History of eye surgery Family History Father CVD (cardiovascular disease) Cancer Mother Cancer CVD (cardiovascular disease) Stroke Other Mental health problem Social History Housing: House Alcohol intake: former Patient Tobacco Use Status: Former Tobacco user Tobacco use type: Cigarette Cigarettes Per Day: 16 e-Cigarette/Vaping Use: Never Used Second Hand Smoke Exposure: Yes service: No Current occupational status: disabled Cognitive needs: Yes (Parkinson's disease) Hearing needs: No Vision needs: No Questionnaire Thrive Questionnaire Date Thrive assessed: 08/09/23 CYNTHIA-7 AMB Questionnaire CYNTHIA-7 Date CYNTHIA - 7 assessed: 08/09/23 Source: Developed by Drs. Be Ortiz, Rubina Kuhn, Adeel Mccall and colleagues, with an educational annia from [employer]. Review of Systems Const Denies chills, Denies fatigue, Denies fever(s) and Denies headache(s) ENT Denies dysphagia, Denies dizziness, Denies otalgia, Denies headache(s), Denies neck pain, Denies odynophagia and Denies sore throat Card Denies chest pain, Denies palpitations and Denies dyspnea Resp Denies chest congestion, Denies cough and Denies dyspnea GI Denies abdominal pain, Denies constipation, Denies dysphagia, Denies heartburn, Denies diarrhea, Denies nausea, Denies odynophagia and Denies vomiting Denies dysuria, Reports nocturia (at times) and Reports urinary frequency Musc Denies arthralgias, Denies neck pain and Reports stiffness Skin/Breast Denies rash Neuro Denies dizziness, Denies headache(s) and Reports tremor(s) (due to Parkinson's) Endo Denies fatigue and Denies palpitations Physical exam (Primary Care) Vital Signs: Last Vital Signs Pulse 72 04/05/24 12:25 BP 132/60 04/05/24 12:25 Pulse Ox 97 04/05/24 12:25 Oxygen Delivery Method Room Air 04/05/24 12:25 BMI result Body Mass Index 27.7 Tobacco/Smoking Status: Tobacco use Status Tobacco use date assessed 08/09/23 04/05/24 12:25 Patient Tobacco Use Status Former Tobacco user 04/05/24 12:25 Tobacco use type Cigarette 04/05/24 12:25 e-Cigarette/Vaping Use Never Used 04/05/24 12:25 Thrive Assessment: Date of Thrive Assessment Date Thrive assessed 08/09/23 04/05/24 12:25 Const General: no acute distress and alert HENMT Ears: TM's normal bilaterally and EAC's normal Throat: Yes posterior oropharynx normal and Yes tonsils normal (no TP congestion) Neck Neck: Yes no lymphadenopathy and Yes supple Thyroid: Thyroid normal Resp Auscultation: clear to auscultation bilaterally, no rales and no wheezes Cardio Rate: regular rate Rhythm: regular rhythm Heart sounds: no murmurs GI Palpation (GI): Soft to palpation and nontender Auscultation: normal bowel sounds General: Yes no CVA tenderness Back/Spine/Pelvis Back: no CVA tenderness Thoracic/Lumbar Spine: No lumbar spinal tenderness Skin Rashes: no rashes Neuro Other: (+) multiple large varicosities noted over both lower extremities Motor exam (neuro): Tremors during motor activity present (in both hands) Extrem General: Yes no clubbing, cyanosis or edema Office Procedures Flu Questionnaire Does the patient have a severe egg allergy?: No Does the patient have severe life threatening allergies?: No Does the patient have a fever or illness today?: No Has the patient ever had Guillain-[place] Syndrome?: No Has the patient ever had any past reaction to a flu shot?: No Immunizations Fluarix Triv [id number] (PF) 45 mcg (15 mcg x 3)/0.5 mL IM syringe Performing Provider: Dannie Richard MD Per[facility] Administered by: JUAN Renae on 04/05/24 12:56 Dose Route Admin Location Dispensed Lot Number Expiration Date [facility] Pattern Worker 0.5 mL IM Right Deltoid 0.5 mL [id number] 10/29/24 [id number] [employer] VIS Given Date VIS Provided VIS Publication Date 04/05/24 Single Vaccine 20 Eligibility Eligibility Date Funding Source Not VFC Eligible 04/05/24 Private pneumoc 20-wenceslao conj-dip cr(PF) 0.5 mL IM syringe Performing Provider: Dannie Richard MD Performing Location: [facility] Administered by: JUAN Renae on 04/05/24 12:56 Dose Route Admin Location Dispensed Lot Number Expiration Date [place] Pattern Worker 0.5 mL IM Right Deltoid 0.5 mL [id number] 05/02/25 [employer] VIS Given Date VIS Provided VIS Publication Date 04/05/24 Single Vaccine 21 Eligibility Eligibility Date Funding Source Not VF Eligible 04/05/24 Private Results Reviewed Results Reviewed: Laboratory Tests 04/03/24 04/03/24 12:10 12:12 WBC 5.0 Hgb 12.8 L Hct 36.8 L Plt Count 193 Sodium 130 L Potassium 4.1 Creatinine 0.90 Estimated GFR > 60 Fasting Glucose 127 H Hemoglobin A1c % 6.0 Calcium 9.4 AST 20 ALT 19 Triglycerides 71 Cholesterol 150 LDL Cholesterol, Calc 90 HDL Cholesterol 46 25-OH Vitamin D Total 41.0 TSH 0.88 Ur Specific [place] 1.015 Urine Protein Negative Urine Glucose (UA) Negative Urine Blood Negative Urine Nitrite Negative Ur Leukocyte Esterase Negative Microalb/Creat Ratio 6.7 Coding Level of Care Code Est Pt Level 4 (28686) Complex EM visit Add On G2211 Diagnoses Type 2 diabetes mellitus without complication, without long-term current use of insulin E11.9 Diabetes mellitus type: type 2 Diabetes mellitus retirement insulin use: without watermaster use Diabetes mellitus complication status: without complication Benign essential hypertension I10 Mixed hyperlipidemia E78.2 Parkinson's disease without dyskinesia or fluctuating manifestations G20.A1 Dyskinesia presence: without dyskinesia Fluctuating manifestations: without fluctuating manifestations Hyponatremia E87.1 Primary osteoarthritis, right shoulder M19.011 Vitamin D deficiency E55.9 Varicose veins of both lower extremities without ulcer or inflammation I83.93 Laterality: bilateral Schizophrenia, unspecified type F20.9 Schizophrenia type: unspecified Smoker F17.200 Obesity (BMI 30-39.9) E66.9 Assessment & Plan Assessment & Plan (1) Diabetes mellitus: Code(s): E11.9 - Type 2 diabetes mellitus without complications Category: Medical Qualifiers: Diabetes mellitus type: type 2 Diabetes mellitus retirement insulin use: without retirement use Diabetes mellitus complication status: without complication Qualified Code(s): E11.9 - Type 2 diabetes mellitus without complications Plan: His HgbA1c was at 6.0% on his labs done a couple of days ago (was previously at 6.2% a few months ago) - goal is < 7.0% Reinforced diabetic diet Continue Januvia 50 mg QD (2) Benign essential hypertension: Code(s): I10 - Essential (primary) hypertension Category: Medical Plan: Reinforced low-sodium diet -? goal is systolic BP of 120 mm or less Continue Lisinopril 5 mg?QD (3) Mixed hyperlipidemia: Code(s): E78.2 - Mixed hyperlipidemia Category: Medical Plan: Results of his labs done a couple of days ago reviewed and discussed with patient Reinforced low cholesterol diet Continue Fenofibrate 145 mg QD and Fish oil capsules 1000 mg TID Will recheck his labs and fasting lipids in 4 months for follow-up (4) Parkinson's disease: Code(s): G20 - Parkinson's disease Category: Medical Qualifiers: Dyskinesia presence: without dyskinesia Fluctuating manifestations: without fluctuating manifestations Qualified Code(s): G20.A1 - Parkinson's disease without dyskinesia, without mention of fluctuations Plan: MRI of the brain done in 04/2021 revealed very mild chronic white matter microangiopathic changes and generalized parenchymal volume loss, with no acute findings Continue Carbidopa-Levodopa 25-100 mg TID Follow-up with neurology as scheduled (5) Hyponatremia: Code(s): E87.1 - Hypo-osmolality and hyponatremia Category: Medical Plan: Serum sodium level is again low at 130 on his labs done a couple of days ago Serum osmolality checked previously was normal Will continue to monitor his serum electrolyte levels closely (6) Primary osteoarthritis, right shoulder: Code(s): M19.011 - Primary osteoarthritis, right shoulder Category: Medical Plan: X-rays of the right shoulder done in 12/2020 revealed (+) moderate OA changes Patient states that his shoulder pain has subsided and hasn't been bothering him lately Will consider referring him to orthopedics if his shoulder pain flares up again (7) Vitamin D deficiency: Code(s): E55.9 - Vitamin D deficiency, unspecified Category: Medical Plan: Continue Vitamin D3 1000 units QD (8) Varicose veins of lower extremities without ulcer or inflammation: Code(s): I83.90 - Asymptomatic varicose veins of unspecified lower extremity Category: Medical Qualifiers: Laterality: bilateral Qualified Code(s): I83.93 - Asymptomatic varicose veins of bilateral lower extremities Plan: Patient reports (+) pain in his legs and over the varicosities on his legs at times but states that his symptoms are mostly mild Have offered to refer him to vascular surgery but patient declined referral; states that he will call for referral if his symptoms get worse (9) Schizophrenia: Code(s): F20.9 - Schizophrenia, unspecified Category: Medical Qualifiers: Schizophrenia type: unspecified Qualified Code(s): F20.9 - Schizophrenia, unspecified Plan: Continue Risperidone at 3 mg Q AM Follow-up with Psychiatry as scheduled (10) Smoker: Code(s): F17.200 - Nicotine dependence, unspecified, uncomplicated Category: Social Hx Plan: Patient is counseled again on complete smoking cessation (11) Obesity (BMI 30-39.9): Code(s): E66.9 - Obesity, unspecified Category: Medical Plan: Reinforced diet/exercise as tolerated/lose weight Plan As requested, flu vaccine and pneumonia vaccine given today He is advised to return in a couple of weeks for his Tdap booster as he has not had a tetanus booster in well over 10 years now Follow up in 4 months Orders: Orders Pneumococcal 20 Immunization Today Z23 - Encounter for immunization Influenza [id number] Immunization Today Z23 - Encounter for immunization Comprehensive [place]. Panel Fast 4 Months E78.00 - Pure hypercholesterolemia, unspecified UA CC w/rflx Micro + Cult 4 Months R30.0 - Dysuria Vitamin D 25-OH Total 4 Months E55.9 - Vitamin D deficiency, unspecified Complete Blood Count Auto Diff 4 Months D64.9 - Anemia, unspecified Lipid Panel 4 Months E78.00 - Pure hypercholesterolemia, unspecified TSH reflex Free T4 4 Months E78.00 - Pure hypercholesterolemia, unspecified Microalbumin, Random (w Creat) 4 Months E11.9 - Type 2 diabetes mellitus without complications Hemoglobin A1c 4 Months E11.9 - Type 2 diabetes mellitus without complications
== END 2024-04-05 13:01 | disposition home or self-care (01) ==
PROVIDERS: PCP Internal Medicine; Visit Provider Internal Medicine
DX: E11.9 Type 2 diabetes mellitus without complications (principal); G20.A1 Parkinson's disease without dyskinesia, without mention of fluctuations; F20.9 Schizophrenia, unspecified; I10 Essential (primary) hypertension; E78.2 Mixed hyperlipidemia; E87.1 Hypo-osmolality and hyponatremia; M19.011 Primary osteoarthritis, right shoulder; E55.9 Vitamin D deficiency, unspecified; I83.93 Asymptomatic varicose veins of bilateral lower extremities; F17.200 Nicotine dependence, unspecified, uncomplicated; E66.9 Obesity, unspecified; Z23 Encounter for immunization

== ENCOUNTER → 2024-04-05 12:22 | Outpatient (BNVA) | payer MEDICARE, MEDICAID, SELFPAY | PROVIDERS: PCP Internal Medicine; Visit Provider Internal Medicine | DX: Z23 Encounter for immunization (principal); E11.9 Type 2 diabetes mellitus without complications; I10 Essential (primary) hypertension; E78.2 Mixed hyperlipidemia; G20.A1 Parkinson's disease without dyskinesia, without mention of fluctuations; E87.1 Hypo-osmolality and hyponatremia; E55.9 Vitamin D deficiency, unspecified; M19.011 Primary osteoarthritis, right shoulder; I83.93 Asymptomatic varicose veins of bilateral lower extremities; F20.9 Schizophrenia, unspecified; E66.9 Obesity, unspecified; F17.200 Nicotine dependence, unspecified, uncomplicated | CPT/HCPCS: 90471; 90656; 90677; 99212 ==

== ENCOUNTER 2024-08-06 11:26 | Outpatient (REF) | payer MEDICARE, MEDICAID, SELFPAY ==
[2024-08-06 11:40] LABS: MANUAL DIFF FLAG NO
[2024-08-06 12:03] LABS: Basophils Percent Auto 0.2 % (0-2); Eosinophils Percent Auto 0.7 % (0-4); Hematocrit 38.4 % (42.0-52.0); Hemoglobin 13.3 g/dl (14.0-18.0); Imm Gran Abs Auto 0.03 X10*3/uL (0.00-0.03); Imm Gran Pct Auto 0.5 % (0.0-0.4); Lymphocytes Absolute Auto 1.1 X10*3/uL (1.2-4.9); Lymphocytes Percent Auto 19.2 % (20-40); Mean Corpuscular HGB Conc 34.6 g/dl (31.0-36.0); Mean Corpuscular Hemoglobin 30.9 pg (27.0-33.0); Mean Corpuscular Volume 89.3 fL (80.0-98.0); Mean Platelet Volume 10.2 fL (9.4-12.4); Monocytes Absolute Auto 0.5 X10*3/uL (0.1-1.2); Monocytes Percent Auto 9.1 % (2-11); Neutrophils Absolute Auto 4.2 x10*3/uL (2.0-8.3); Neutrophils Percent Auto 70.3 % (45-73); Platelet Count 170 X10*3/uL (160-400); Red Cell Distribution Width 12.8 % (11.0-16.0); White Blood Count 5.9 X10*3/uL (4.8-10.8)
[2024-08-06 12:32] LABS: Appearance Urine Clear; Color Urine Yellow; Glucose Urine UA Negative (Negative); Leukocyte Esterase Urine Negative (Negative); Nitrite Urine Negative (Negative); Specific Gravity - Urine 1.015 (1.005-1.025); Urine Blood Negative (Negative); Urine Ketones Negative (Negative); Urine Protein Negative (Neg-Trace)
[2024-08-06 12:43] LABS: Estimated Average Glucose 134 mg/dL; Hemoglobin A1C 162.1011 umol/L; Hemoglobin A1c % 6.3 % (<6.0)
[2024-08-06 12:55] LABS: Alanine Aminotransferase 17 U/L (0-40); Albumin Level 4.2 g/dL (3.5-5.0); Anion Gap 11 (12-20); Aspartate Amino Transferase 23 U/L (5-37); Bilirubin Total 0.6 mg/dL (0.0-1.0); Blood Urea Nitrogen 13 mg/dL (9-16); Carbon Dioxide 25 mmol/L (22-29); Chloride 102 mmol/L (96-108); Cholesterol 150 mg/dL (<200); Estimated Glomerular Filt Rate > 60; Glucose Fasting 133 mg/dL (60-99); HDL Cholesterol 41 mg/dL (>40); LDL Cholesterol Calculated 95 mg/dL (<100); Potassium 3.9 mmol/L (3.3-5.1); Sodium 134 mmol/L (135-145); Triglycerides 72 mg/dL (<150)
[2024-08-06 13:01] LABS: TSH reflex Free T4 0.63 uIU/mL (0.32-4.0); Vitamin D 25-OH Total 40.1 ng/mL (>30)
[2024-08-06 13:38] LABS: Creatinine Urine 91.12 mg/dL; Microalbum/Creatinine Ratio Ur 10.9 ug/mg cr (<30)
[2024-08-06 13:41] LABS: Alkaline Phosphatase 29 U/L (39-117)
--- OUTSIDE RECORDS SUMMARY | 2024-08-06 13:49 | XMS_ITS | Clinical Summary ---
Author Organization [facility] Address [address] [place] [address] Care Team Providers Care Textile Converter Name Role Phone Dannie Richard MD Primary Care Provider [phone]- [phone] Allergies Active Allergy Reactions Criticality Noted Date Comments Aspirin Unknown/Patient and Family Unable to Define Medium 07/16/2023 Glyburide Unknown/Patient and Family Unable to Define Medium 07/16/2023 Haloperidol Myalgia/Myositis/Arthralgia/Arthritis Medium 07/16/2023 Medications Medication Sig Dispensed Refills Start Date End Date Status carbidopa-levodopa (SINEMET) 25-100 MG per tablet Take 1 tablet by mouth 4 (four) times a day. 06/29/2023 Active fenofibrate (TRICOR) 145 MG tablet Take 1 tablet (145 mg total) by mouth daily. 06/30/2023 Active lisinopril (PRINIVIL,ZeSTRIL) 5 MG tablet Take 1 tablet (5 mg total) by mouth daily. 06/17/2023 Active risperiDONE (RisperDAL) 3 MG tablet Take 1 tablet (3 mg total) by mouth every morning. 07/02/2023 Active Januvia 50 MG tablet Take 1 tablet (50 mg total) by mouth daily. 05/23/2023 Active terazosin (HYTRIN) 1 MG capsule Take 1 capsule (1 mg total) by mouth nightly. 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 With food. Do not start before July 25, 2023. 07/25/2023 Active Active Problems Problem Noted Date Diagnosed Date Schizophrenia 07/17/2023 Parkinson's disease 07/17/2023 Hypertension 07/17/2023 Diabetes mellitus 07/17/2023 COPD (chronic obstructive pulmonary disease) Acute hypoxic respiratory failure 07/17/2023 Rhabdomyolysis 07/17/2023 Thrombocytopenia 07/17/2023 Hyponatremia 07/16/2023 GERD (gastroesophageal reflux disease) Resolved Problems Problem Noted Date Diagnosed Date Resolved Date Influenza A 07/17/2023 03/28/2024 Social History Tobacco Use Types Packs/Day Years Used Date Smoking Tobacco: Never Assessed [facility] Utilities Answer Date Recorded In the past 12 months has th e electric, gas, oil, or water company threatened to shut off services in your home? No 07/17/2023 AUDIT-C Answer Date Recorded Q1: How often do you have a drink containing alcohol? Patient unable to answer 07/18/2023 Q2: How many drinks containi ng alcohol do you have on a typical day when you are drinking? Patient unable to answer Q3: How often do you have si x or more drinks on one occasion? Patient unable to answer 07/18/2023 Overall Financial Resource Strain (CARDIA) Answe r Date Recorded How hard is it for you to pa y for the very basics like food, housing, medical care, and heating? Not hard at all 07/17/2023 Hunger Vital Sign Answer Date Recorded Within the past 12 months, y ou worried that your food would run out before you got the money to buy more. Never true 07/17/19 24 Within the past 12 months, t he food you bought just didn't last and you didn't have money to get more. Never true 07/17/2023 PRAPARE - Transportation Answer Date Re corded In the past 12 months, has l ack of transportation kept you from medical appointments or from getting medications? No 06/30 In the past 12 months, has l ack of transportation kept you from meetings, work, or from getting things needed for daily living? No 07/17/2023 Housing Stability Vital Sign Answer Jere e Recorded In the last 12 months, was t here a time when you were not able to pay the mortgage or rent on time? No 07/17/2023 In the last 12 months, how many places have you lived? 1 07/17/2023 In the last 12 months, was t here a time when you did not have a steady place to sleep or slept in a skilled nursing (including now)? No 07/17/2023 Sex and Gender Information Value Date Recorded Sex Assigned at Male 07/16/2023 9:17 AM EDT Gender Identity Male 07/16/2023 9:17 AM EDT Sexual Orientation Heterosexual (straight) 07/15 9:17 AM EDT Last Filed Vital Signs Vital Sign Reading Time Taken Comments Blood Pressure 130/65 07/22/2023 11:26 AM EDT Pulse 82 07/22/2023 11:26 AM EDT Temperature 36.9 ??C (98.4 ??F) 07/22/2023 11:26 AM E DT Respiratory Rate 18 07/22/2023 11:26 AM EDT Oxygen Saturation 95% 07/22/2023 11:26 AM EDT Inhaled Oxygen Concentration - - Weight 75.5 kg (166 lb 7.2 oz) 07/22/2023 6:00 A M EDT Height 173 cm (5' 8.11 ) 07/16/2023 12:00 PM EDT Body Mass Index 25.23 07/16/2023 12:00 PM EDT Plan of Treatment Health Maintenance Due Date Last Done Comments Hepatitis C Virus Screening 1958 Foot Exam 1968 Lipid Panel 1968 Ophthalmology Exam 1968 HIV Screening 1971 Microalbumin/Creatinine Ratio Urine 1976 DTaP/Tdap/Td Vaccines (1 - Tdap) 1977 Pneumococcal Vaccines 50+ (1 of 2 - PCV) 1977 Colonoscopy 2003 Zoster (Shingles) Vaccine (1 of 2) 2008 RSV Vaccine 60 years and older and Patients (1 - Risk 60-74 years 1-dose series) 2018 Influenza Vaccine 12/01/2023 COVID-19 Vaccine ( - 2023- season) 2024 Hemoglobin A1C 01/17/2024 07/17/2023 Creatinine with GFR 07/20/2024 07/21/2023, 07/20/2023, 07/19/2023, Additional history exists Hepatitis B Vaccines Aged Out No long er eligible based on patient's age to complete this topic Procedures Procedure Name Priority Date/Time Associated Diagnosis Comments BASIC METABOLIC PANEL Routine 07/21/2023 6:27 AM EDT HEMOGLOBIN A1C WITH ESTIMATED AVERAGE GLUCOSE Routine 07/17/2023 7:13 AM EDT from Last 3 Months or Most Recently Relevant to Health Maintenance Results * (ABNORMAL) BASIC METABOLIC PANEL (07/21/2023 6:27 AM EDT) Glucose 220(H) 74 - 106 mg/dL 07/21/2023 7:33 AM EDT [facility] Comment:Fasting: <100 mg/dL, Non-Fasting: <200 mg/dL (ADA 2004) Blood Urea Nitrogen (BUN) 23 9 - 23 mg/dL 07/21/2023 7:33 AM EDT [facility] Creatinine 0.8 0.7 - 1.3 mg/dL 07/21/2023 7:33 AM EDT [facility] eGFR >90 >59 07/21/2023 7:33 AM EDT [facility] Comment:CKD-EPI (2020) in mL /min/1.73 sq meters. Sodium 134(L) 136 - 145 mmol/L 07/21/2023 7:33 AM EDT [facility] Potassium 3.5 3.4 - 4.5 mmol/L 07/21/2023 7:33 AM EDT [facility] Chloride 102 98 - 107 mmol/L 07/21/2023 7:33 AM EDT [facility] CO2 26 20 - 31 mmol/L 07/21/2023 7:33 AM EDT [facility] Anion Gap 6 5 - 15 07/21/2023 7:33 AM EDT [facility] Calcium 8.5(L) 8.7 - 10.5 mg/dL 07/21/2023 7:33 AM EDT [facility] BUN/Creatinine Ratio 29(H) 10.0 - 25.0 Ratio 07/21/2023 7:33 AM EDT [facility] Blood specimen (specimen) (Plasma/Serum) 07/21/2023 6:27 AM EDT 07/21/2023 6:53 AM EDT Brian Cunningham PA-C LAB BLOOD ORDERABLES [facility] [address] [place], [place] [address] * (ABNORMAL) Hemoglobin A1c with Estimated Average Glucose (07/17/2023 7:13 AM EDT) Hemoglobin A1C 6.1(H) <5.7 % 07/17/2023 4:50 PM EDT [facility] Comment: A1c% ? Interpretation 5.7 - 6.0 ?Increase risk of diabetes 6.1 - 6.4 ?Higher risk of diabetes > or = 6.5 ?? Consistent with diabetes Diabetes Care, 33(Supp 1):S1-S61, 2010 Estimated Average Glucose 128 mg/dL 07/17/2023 4:50 PM EDT [facility] Blood specimen (specimen) Blood specimen / Unknown 07/17/2023 7:13 AM EDT 07/17/2023 7:51 AM EDT Brian Cunningham PA-C LAB BLOOD ORDERABLES Performing Organization Address City/[facility] [place] [address], [place] [address] from Last 3 Months or Most Recently Relevant to Health Maintenance Advance Directives * Full Code (Latest Code Status on File) Date Activated Date Inactivated Comments 07/16/2023 9:32 AM Care Teams Textile Converter Relationship Specialty Start Date End Date Dannie Richard MD [address] [place] [address] [place] [address] PCP - General Internal Medicine 07/16/23
--- OUTSIDE RECORDS SUMMARY | 2024-08-06 13:49 | XMS_ITS | Encounter Summary ---
Author Organization [facility] Address [address] [place] [address] Care Team Providers Care Associate Drafter Name Role Phone Dannie Richard MD Primary Care Provider [phone]- [phone] Encounter Details Date Type Department Care Team ([facility] st Contact Info) Description 07/20/2023 Scanned Document [facility] [address] [facility] [address] [place] [id number] Provider, Generic Social History Tobacco Use Types Packs/Day Years Used Date Smoking Tobacco: Never Assessed [facility] Utilities Answer Date Recorded In the past 12 months has [employer] electric, gas, oil, or water [employer] threatened to shut off services in your [...] place to sleep or slept in a [facility] (including now)? No 07/17/2023 Sex and Gender Information Value Date Recorded Sex Assigned at Male 07/16/2023 9:17 AM EDT Gender Identity Male 07/16/2023 9:17 AM EDT Sexual Orientation Heterosexual (straight) 07/15 9:17 AM EDT documented as of this encounter Plan of Treatment Not on file documented as of this encounter Visit Diagnoses Not on filedocumented in this encounter Additional Health Concerns Infection Onset Date Last Indicated Resolved Time Influenza, Type A 07/16/2023 07/16/2023 07/22/2023 11:43 PM EDT documented as of this encounter Care Teams Associate Drafter Relationship Specialty Start Date End Date Dannie Richard MD [address] [place] [address] [place] [address] PCP - General Internal Medicine 07/16/23 documented as of this encounter
--- OUTSIDE RECORDS SUMMARY | 2024-08-06 13:49 | XMS_ITS ---
Author Name [facility] Organization Unknown Encounters Encounter Type Encounter Reason Primary Diagnosis Location Date Inpatient Chronic obstructive pulmonary disease, unspecified Chronic obstructive pulmonary disease, unspecified [facility] 07[facility]2023 Amb[facility] 07/16/2023 Ambulatory [place] [facility] 07/16/2023 Care Team Organization Name Specialty Phone Email Start Date End Da te [place] [employer] [facility] 07/16/2023 [facility] 07/16/2023 07/18/2024 [place] [employer] 07/16/2023
== END 2024-08-06 11:27 | disposition home or self-care (01) ==
LOC: HO.LAB 11:26
PROVIDERS: PCP Internal Medicine; Visit Provider Internal Medicine
DX: D64.9 Anemia, unspecified (principal); E78.00 Pure hypercholesterolemia, unspecified; E11.9 Type 2 diabetes mellitus without complications; R30.0 Dysuria; E55.9 Vitamin D deficiency, unspecified
CPT/HCPCS: 36415; 80053; 80061; 81003; 82043; 82306; 82570; 83036; 84443; 85025

== ENCOUNTER 2024-08-07 16:25 | Outpatient (AMB) | payer MEDICARE, MEDICAID, SELFPAY ==
--- NOTE | 2024-08-07 16:26 | A.OFFPC_ITS ---
Vital Signs 08/07/24 16:27 Height 5 ft 10 in Weight 192 lb 2 oz BMI 27.6 BP 132/70 Blood Pressure Location Lt brachial Position Sitting Pulse 72 Pulse Source Pulse Oximeter Pulse Oximetry (%) 98 Oxygen Delivery Method Room Air Intake Visit Reasons: [facility] Faculty Physician Required: No Accompanied by: Self / Same As Patient Allergies haloperidol [From HALDOL] Allergy (Intermediate, Verified 08/07/24 16:49) BODY STIFF aspirin [ASA] Allergy (Unknown, Verified 08/07/24 16:49) UNKNOWN glyburide [GLYBURIDE] Allergy (Unknown, Verified 08/07/24 16:49) UNKNOWN Medication List - Last Reconciled 08/07/24 by Dannie Richard MD carbidopa-levodopa 25-100 mg tabs PO TID cholecalciferol (vitamin D3) 25 mcg PO DAILY fenofibrate nanocrystallized 145 mg PO DAILY 90 days lisinopril 5 mg PO DAILY 90 days omega-3 fatty acids (Fish Oil Concentrate) 1,000 mg PO TID risperidone 3 mg PO QAM sitagliptin phosphate (Januvia) 50 mg PO DAILY 90 days terazosin 1 mg PO BEDTIME 90 days Tobacco use date assessed: 08/07/24 Fall risk assessment: No Falls in past year Last assessed Fall Risk: 08/07/24 Dental Screening Dental Screen Date: 08/07/24 Did you have a dental visit in the last 12 months?: No Did you have a dental problem in the last 6 months where you did not have access to dental care?: No Was dental information given to patient?: No HPI [facility] f/u HPI Details Patient comes in today for his follow up visit for his HTN, DM, hyperlipidemia and Parkinson's disease States that he feels okay He denies any headaches or dizziness Denies any chest pains, no SOB No nausea/vomiting, no abdominal pain No change in bowel habits noted He had his follow up labs done yesterday - to discuss his results [facility] Medical History (Updated 08/08/24 @ 05:15 by Dannie Richard MD) BPH with lower urinary tract symptoms without urinary obstruction Parkinson's disease Primary osteoarthritis, right shoulder Vitamin D deficiency Mixed hyperlipidemia Obesity (BMI 30-39.9) Smoker Schizophrenia Hyponatremia Benign essential hypertension Diabetes mellitus Surgical History History of eye surgery Family History Father CVD (cardiovascular disease) Cancer Mother Cancer CVD (cardiovascular disease) Stroke Other Mental health problem Social History Housing: House Alcohol intake: former Patient Tobacco Use Status: Former Tobacco user Tobacco use type: Cigarette Cigarettes Per Day: 16 e-Cigarette/Vaping Use: Never Used Second Hand Smoke Exposure: Yes service: No Current occupational status: disabled Cognitive needs: Yes (Parkinson's disease) Hearing needs: No Vision needs: No Questionnaire PHQ-9 Over the last 2 weeks, how often have you been bothered by any of the following problems? 1. Little interest or pleasure in doing things: not at all 2. Feeling down, depressed, or hopeless: not at all 3. Trouble falling or staying asleep, or sleeping too much: not at all 4. Feeling tired or having little energy: not at all 5. Poor appetite or overeating: not at all 6. Feeling bad about yourself - or that you are a failure or have let yourself or your family down: not at all 7. Trouble concentrating on things, such as reading the newspaper or watching television: not at all 8. Moving or speaking so slowly that other people could have noticed. Or the opposite - being so fidgety or restless that you have been moving around a lot more than usual: not at all 9. Thoughts that you would be better off or of hurting yourself in some way: not at all Total score: 0 Depression Screening Interpretation: Negative Depression Screening Done: Yes 48580 - PHQ-9 Billing: Yes Source: Developed by Drs. Be Ortiz, Rubina Kuhn, Adeel Mccall and colleagues, with an educational annia from [employer]. Thrive Questionnaire Date Thrive assessed: 08/07/24 I am a: Patient What is your living situation today?: I have a steady place to live Within the past 12 months, did the food you bought not last and you didn't have the money to get more?: Never true Within the past 12 months, did you worry whether your food would run out before you got money to buy more?: Never true Do you have trouble paying for medicines?: No Do you have trouble getting transportation to medical appointments?: No Do you have trouble paying your heating and electricity bill?: No Do you have trouble taking care of your child, family member or friend?: No Do you have trouble with day-to-day activities such as bathing, preparing meals, shopping, managing finances, etc.?: No Are you currently unemployed and looking for a job?: No Are you interested in more education?: No Please select the resources that you would like help with: None Currently or been in a relationship where the following occur: No concerns reported THRIVE Score: 0 AUDIT C Alcohol Use Questionnaire (AUDIT-C) 1. How often do you have a drink containing alcohol?: Never 3. How often do you have six or more drinks on one occasion?: Never Total Score: 0 Score Reviewed/Action Taken: Yes CYNTHIA-7 AMB Questionnaire CYNTHIA-7 Date CYNTHIA - 7 assessed: 08/07/24 Feeling nervous, anxious, or on edge: 0 = Not at all Not being able to stop or control worryin = Not at all Worrying too much about different things: 0 = Not at all Trouble relaxin = Not at all Being so restless that it is hard to sit still: 0 = Not at all Becoming easily annoyed or irritable: 0 = Not at all Feeling afraid as if something awful might happen: 0 = Not at all Total CYNTHIA-7 score (0-4 normal; 5-9 mild; 10-14 moderate; 15-21 severe): 0 Source: Developed by Drs. Be Ortiz, Rubina Kuhn, Adeel Mccall and colleagues, with an educational annia from [employer]. Review of Systems Const Denies chills, Denies fatigue, Denies fever(s) and Denies headache(s) ENT Denies dysphagia, Denies dizziness, Denies otalgia, Denies headache(s), Denies neck pain, Denies odynophagia and Denies sore throat Card Denies chest pain, Denies palpitations and Denies dyspnea Resp Denies chest congestion, Denies cough and Denies dyspnea GI Denies abdominal pain, Denies constipation, Denies dysphagia, Denies heartburn, Denies diarrhea, Denies nausea, Denies odynophagia and Denies vomiting Denies dysuria, Reports nocturia (at times) and Reports urinary frequency Musc Denies arthralgias, Denies neck pain and Reports stiffness Skin/Breast Denies rash Neuro Denies dizziness, Denies headache(s) and Reports tremor(s) (due to Parkinson's) Endo Denies fatigue and Denies palpitations Physical exam (Primary Care) Vital Signs: Last Vital Signs Pulse 72 08/07/24 16:27 BP 132/70 08/07/24 16:27 Pulse Ox 98 08/07/24 16:27 Oxygen Delivery Method Room Air 08/07/24 16:27 BMI result Body Mass Index 27.6 Tobacco/Smoking Status: Tobacco use Status Tobacco use date assessed 08/07/24 08/07/24 16:31 Patient Tobacco Use Status Former Tobacco user 08/07/24 16:31 Tobacco use type Cigarette 08/07/24 16:31 e-Cigarette/Vaping Use Never Used 08/07/24 16:31 PHQ-9: PHQ-9 Score PHQ-9: Total score 0 08/07/24 16:52 Depression Screening Interpretation: Negative Thrive Assessment: Date of Thrive Assessment Date Thrive assessed 08/07/24 08/07/24 16:31 Currently or been in a relationship where the following occur: No concerns reported Const General: no acute distress and alert HENMT Ears: TM's normal bilaterally and EAC's normal Throat: Yes posterior oropharynx normal and Yes tonsils normal (no TP congestion) Neck Neck: Yes supple and No lymphadenopathy Thyroid: Thyroid normal Resp Auscultation: clear to auscultation bilaterally, no rales and no wheezes Cardio Rate: regular rate Rhythm: regular rhythm Heart sounds: no murmurs GI Palpation (GI): Soft to palpation and nontender Auscultation: normal bowel sounds General: Yes no CVA tenderness Back/Spine/Pelvis Back: no CVA tenderness Thoracic/Lumbar Spine: No lumbar spinal tenderness Skin Rashes: no rashes Neuro Other: (+) multiple large varicosities noted over both lower extremities Motor exam (neuro): Tremors during motor activity present (in both hands) Extrem General: Yes no clubbing, cyanosis or edema Results Reviewed Results Reviewed: Laboratory Tests 08/06/24 08/06/24 11:35 11:39 WBC 5.9 Hgb 13.3 L Hct 38.4 L Plt Count 170 Sodium 134 L Potassium 3.9 Creatinine 0.85 Estimated GFR > 60 Fasting Glucose 133 H Hemoglobin A1c % 6.3 H Calcium 9.0 AST 23 ALT 17 Triglycerides 72 Cholesterol 150 LDL Cholesterol, Calc 95 HDL Cholesterol 41 25-OH Vitamin D Total 40.1 TSH 0.63 Ur Specific Antoine 1.015 Urine Protein Negative Urine Glucose (UA) Negative Urine Blood Negative Urine Nitrite Negative Ur Leukocyte Esterase Negative Microalb/Creat Ratio 10.9 Coding Level of Care Code Est Pt Level 4 (79859) Complex EM visit Add On G2211 Diagnoses Type 2 diabetes mellitus without complication, without long-term current use of insulin E11.9 Diabetes mellitus complication status: without complication Diabetes mellitus care home insulin use: without care home use Diabetes mellitus type: type 2 Benign essential hypertension I10 Mixed hyperlipidemia E78.2 Parkinson's disease without dyskinesia or fluctuating manifestations G20.A1 Dyskinesia presence: without dyskinesia Fluctuating manifestations: without fluctuating manifestations Hyponatremia E87.1 Primary osteoarthritis, right shoulder M19.011 Vitamin D deficiency E55.9 Varicose veins of both lower extremities without ulcer or inflammation I83.93 Laterality: bilateral BPH with lower urinary tract symptoms without urinary obstruction N40.1 Schizophrenia, unspecified type F20.9 Schizophrenia type: unspecified Smoker F17.200 Obesity (BMI 30-39.9) E66.9 Additional Codes PHQ-9 - 61771 - PHQ-9 Billing: Yes ([id number]) Assessment & Plan Assessment & Plan (1) Diabetes mellitus: Code(s): E11.9 - Type 2 diabetes mellitus without complications Category: Medical Qualifiers: Diabetes mellitus complication status: without complication Diabetes mellitus care home insulin use: without care home use Diabetes mellitus type: type 2 Qualified Code(s): E11.9 - Type 2 diabetes mellitus without complications Plan: His HgbA1c was at 6.3% on his labs done yesterday (was previously at 6.0% a few months ago) - goal is < 7.0% Reinforced diabetic diet Patient states that he has been taking/using a lot of cough drops over the past month since he tested positive for influenza last month and this is likely the reason his blood sugar is higher than previous Continue Januvia 50 mg QD (2) Benign essential hypertension: Code(s): I10 - Essential (primary) hypertension Category: Medical Plan: Reinforced low-sodium diet -? goal is systolic BP of 120 mm or less Continue Lisinopril 5 mg?QD (3) Mixed hyperlipidemia: Code(s): E78.2 - Mixed hyperlipidemia Category: Medical Plan: Results of his labs done yesterday reviewed and discussed with patient Reinforced low cholesterol diet Continue Fenofibrate 145 mg QD and Fish oil capsules 1000 mg TID Will recheck his labs and fasting lipids in 4 months for follow-up (4) Parkinson's disease: Code(s): G20 - Parkinson's disease Category: Medical Qualifiers: Dyskinesia presence: without dyskinesia Fluctuating manifestations: without fluctuating manifestations Qualified Code(s): G20.A1 - Parkinson's disease without dyskinesia, without mention of fluctuations Plan: MRI of the brain done in 04/2021 revealed very mild chronic white matter microangiopathic changes and generalized parenchymal volume loss, with no acute findings Continue Carbidopa-Levodopa 25-100 mg TID Follow-up with neurology as scheduled (5) Hyponatremia: Code(s): E87.1 - Hypo-osmolality and hyponatremia Category: Medical Plan: Serum sodium level is again slightly low at 134 on his labs done yesterday Serum osmolality checked previously was normal Will continue to monitor his serum electrolyte levels closely (6) Primary osteoarthritis, right shoulder: Code(s): M19.011 - Primary osteoarthritis, right shoulder Category: Medical Plan: X-rays of the right shoulder done a few years ago in 12/2020 revealed (+) moderate OA changes Patient states that his shoulder pain has subsided and has not been bothering him too much lately Will consider referring him to orthopedics if his shoulder pain flares up again (7) Vitamin D deficiency: Code(s): E55.9 - Vitamin D deficiency, unspecified Category: Medical Plan: Continue Vitamin D3 1000 units QD (8) Varicose veins of lower extremities without ulcer or inflammation: Code(s): I83.90 - Asymptomatic varicose veins of unspecified lower extremity Category: Medical Qualifiers: Laterality: bilateral Qualified Code(s): I83.93 - Asymptomatic varicose veins of bilateral lower extremities Plan: Patient reports (+) pain in his legs and over the varicosities on his legs at times but states that his symptoms are mostly mild Have offered in the past and again today to refer him to vascular surgery but patient declined referral; states that he will call for referral if his symptoms get worse (9) BPH with lower urinary tract symptoms without urinary obstruction: Code(s): N40.1 - Benign prostatic hyperplasia with lower urinary tract symptoms Category: Medical Plan: Continue Terazosin 1 mg Q HS (10) Schizophrenia: Code(s): F20.9 - Schizophrenia, unspecified Category: Medical Qualifiers: Schizophrenia type: unspecified Qualified Code(s): F20.9 - Schizophrenia, unspecified Plan: Continue Risperidone at 3 mg Q AM Follow-up with Psychiatry as scheduled (11) Smoker: Code(s): F17.200 - Nicotine dependence, unspecified, uncomplicated Category: Social Hx Plan: Patient is counseled again on complete smoking cessation (12) Obesity (BMI 30-39.9): Code(s): E66.9 - Obesity, unspecified Category: Medical Plan: Reinforced diet/exercise as tolerated/lose weight Plan Follow up in 4 months Orders: Orders Hemoglobin A1c 4 Months E11.9 - Type 2 diabetes mellitus without complications Complete Blood Count Auto Diff 4 Months D64.9 - Anemia, unspecified Microalbumin, Random (w Creat) 4 Months E11.9 - Type 2 diabetes mellitus without complications UA CC w/rflx Micro + Cult 4 Months R30.0 - Dysuria Vitamin D 25-OH Total 4 Months E55.9 - Vitamin D deficiency, unspecified Comprehensive [place]. Panel Fast 4 Months E78.00 - Pure hypercholesterolemia, un specified Lipid Panel 4 Months E78.00 - Pure hypercholesterolemia, unspecified TSH reflex Free T4 4 Months E78.00 - Pure hypercholesterolemia, unspecified
[2024-08-07 16:27] VITALS: BP 132/70; PULSE 72; O2SAT 98; BMI 27.6
--- OUTSIDE RECORDS SUMMARY | 2024-08-07 19:03 | XMS_ITS | Clinical Summary ---
Author Organization [facility] Address [address] [place] [address] Care Team Providers Care Contact Center Representative Name Role Phone Dannie Richard MD Primary Care Provider [phone]- [phone] Allergies Active Allergy Reactions Criticality Noted Date [...] nightly. 07/02/2023 Active predniSONE (DELTASONE) 10 MG tabletIndications:Slip Bridge Operator evelina obstructive pulmonary disease, unspecified COPD [...] Years Used Date Smoking Tobacco: Never Assessed [facility] Utilities Answer Date Recorded In the past [...] place to sleep or slept in a penitentiary (including now)? No 07/17/2023 Sex and Gender [...] - 106 mg/dL 07/21/2023 7:33 AM EDT [facility] Comment:Fasting: <100 mg/dL, Non-Fasting: <200 mg/dL (ADA 2004) Blood Urea Nitrogen (BUN) 23 9 - 23 mg/dL 07/21/2023 7:33 AM EDT [facility] Creatinine 0.8 0.7 - 1.3 mg/dL 07/21/2023 7:33 AM EDT [facility] eGFR >90 >59 07/21/2023 7:33 AM EDT [facility] Comment:CKD-EPI (2020) in mL /min/1.73 sq meters. Sodium 134(L) 136 - 145 mmol/L 07/21/2023 7:33 AM EDT [facility] Potassium 3.5 3.4 - 4.5 mmol/L 07/21/2023 7:33 AM EDT [facility] Chloride 102 98 - 107 mmol/L 07/21/2023 7:33 AM EDT [facility] CO2 26 20 - 31 mmol/L 07/21/2023 7:33 AM EDT [facility] Anion Gap 6 5 - 15 07/21/2023 7:33 AM EDT [facility] Calcium 8.5(L) 8.7 - 10.5 mg/dL 07/21/2023 7:33 AM EDT [facility] BUN/Creatinine Ratio 29(H) 10.0 - 25.0 Ratio 07/21/2023 7:33 AM EDT [facility] Blood specimen (specimen) (Plasma/Serum) 07/21/2023 6:27 AM EDT 07/21/2023 6:53 AM EDT Brian Cunningham PA-C LAB BLOOD ORDERABLES [facility] [address] [place], [place] [address] * (ABNORMAL) Hemoglobin A1c with Estimated Average Glucose (07/17/2023 7:13 AM EDT) Hemoglobin A1C 6.1(H) <5.7 % 07/17/2023 4:50 PM EDT [facility] Comment: A1c% ? Interpretation 5.7 - 6.0 ?Increase risk of diabetes 6.1 - 6.4 ?Higher risk of diabetes > or = 6.5 ?? Consistent with diabetes Diabetes Care, 33(Supp 1):S1-S61, 2010 Estimated Average Glucose 128 mg/dL 07/17/2023 4:50 PM EDT [facility] Blood specimen (specimen) Blood specimen / Unknown 07/17/2023 7:13 AM EDT 07/17/2023 7:51 AM EDT Brian Cunningham PA-C LAB BLOOD ORDERABLES Performing Organization Address City/[facility] [place] [address], [place] [address] from Last 3 Months or Most Recently Relevant to Health Maintenance Advance Directives * Full Code (Latest Code Status on File) Date Activated Date Inactivated Comments 07/16/2023 9:32 AM Care Teams Contact Center Representative Relationship Specialty Start Date End Date Dannie Richard MD [address] [place] [address] [place] [address] PCP - General Internal Medicine 07/16/23
--- OUTSIDE RECORDS SUMMARY | 2024-08-07 19:03 | XMS_ITS | Encounter Summary ---
Author Organization [facility] Address [address] [place] [address] Care Team Providers Care Configuration Management Administrator Name Role Phone Dannie Richard MD Primary Care Provider [phone]- [phone] Encounter Details Date Type Department Care Team ([facility] st Contact Info) Description 07/20/2023 Scanned Document [facility] [address] [facility] [address] [place] [id number] Provider, Generic Social History Tobacco Use Types Packs/Day Years Used Date Smoking Tobacco: Never Assessed [facility] Utilities Answer Date Recorded In the past 12 months has [employer] electric, gas, oil, or water [employer] threatened to shut off services in your [...] place to sleep or slept in a group home (including now)? No 07/17/2023 Sex and Gender [...] documented as of this encounter Care Teams Configuration Management Administrator Relationship Specialty Start Date End Date Dannie Richard MD [address] [place] [address] [place] [address] PCP - General Internal Medicine 07/16/23 documented as of this encounter
== END 2024-08-07 17:04 | disposition home or self-care (01) ==
LOC: HO.HMCH 16:26
PROVIDERS: PCP Internal Medicine; Visit Provider Internal Medicine
DX: E11.9 Type 2 diabetes mellitus without complications (principal); F20.9 Schizophrenia, unspecified; G20.A1 Parkinson's disease without dyskinesia, without mention of fluctuations; E66.9 Obesity, unspecified; Z68.27 Body mass index [BMI] 27.0-27.9, adult; I10 Essential (primary) hypertension; E78.2 Mixed hyperlipidemia; E87.1 Hypo-osmolality and hyponatremia; M19.011 Primary osteoarthritis, right shoulder; E55.9 Vitamin D deficiency, unspecified; I83.93 Asymptomatic varicose veins of bilateral lower extremities; N40.1 Benign prostatic hyperplasia with lower urinary tract symptoms; F17.200 Nicotine dependence, unspecified, uncomplicated

== ENCOUNTER → 2024-08-07 16:25 | Outpatient (BNVA) | payer MEDICARE, MEDICAID, SELFPAY | PROVIDERS: PCP Internal Medicine; Visit Provider Internal Medicine | DX: I10 Essential (primary) hypertension (principal); E11.9 Type 2 diabetes mellitus without complications; E78.5 Hyperlipidemia, unspecified; G20.A1 Parkinson's disease without dyskinesia, without mention of fluctuations; E78.2 Mixed hyperlipidemia; E87.1 Hypo-osmolality and hyponatremia; M19.011 Primary osteoarthritis, right shoulder; E55.9 Vitamin D deficiency, unspecified; I83.93 Asymptomatic varicose veins of bilateral lower extremities; N40.1 Benign prostatic hyperplasia with lower urinary tract symptoms; F20.9 Schizophrenia, unspecified; F17.210 Nicotine dependence, cigarettes, uncomplicated; D64.9 Anemia, unspecified; E78.00 Pure hypercholesterolemia, unspecified | CPT/HCPCS: 96127; 99212 ==

== ENCOUNTER 2025-01-30 11:35 | Outpatient (REF) | payer MEDICARE, MEDICAID, SELFPAY ==
[2025-01-30 12:04] LABS: MANUAL DIFF FLAG NO
[2025-01-30 13:06] LABS: Hematocrit 35.9 % (42.0-52.0); Hemoglobin 12.7 g/dl (14.0-18.0); Imm Gran Abs Auto 0.02 X10*3/uL (0.00-0.03); Imm Gran Pct Auto 0.5 % (0.0-0.4); Lymphocytes Absolute Auto 1.3 X10*3/uL (1.2-4.9); Mean Corpuscular HGB Conc 35.4 g/dl (31.0-36.0); Mean Corpuscular Hemoglobin 31.7 pg (27.0-33.0); Mean Corpuscular Volume 89.5 fL (80.0-98.0); NRBC Abs Auto 0.000 X10*3/uL (0.0-0.012); NRBC Pct Auto 0.0 /100WBC (0.0-0.2); Platelet Count 192 X10*3/uL (160-400); Red Blood Count 4.01 X10*6/uL (4.60-5.80); White Blood Count 3.9 X10*3/uL (4.8-10.8)
--- OUTSIDE RECORDS SUMMARY | 2025-01-30 13:10 | XMS_ITS ---
Author Name [facility] Organization Unknown Encounters Encounter Type Encounter Reason Primary Diagnosis Location Date Inpatient Chronic obstructive pulmonary disease, unspecified Chronic obstructive pulmonary disease, unspecified [facility] 07/16/2023 Ambulatory [facility] 07/16/2023 Ambulatory [place] 07/16/2023 Care Team Organization Name Specialty Phone Email Start Date End [facility] 07/16/2023 [facility] 07/16/2023 07/18/2024 [facility] 07/16/2023
--- OUTSIDE RECORDS SUMMARY | 2025-01-30 13:10 | XMS_ITS | Encounter Summary ---
Author Organization [facility] Address [address] [place] [address] Care Team Providers Care Rehabilitation Team Lead Name Role Phone Dannie Richard MD Primary Care Provider [phone]- [phone] Encounter Details Date Type Department Care Team ([facility] st Contact Info) Description 07/20/2023 Scanned Document [facility] [address] [facility] [address] [place] [id number] Provider, Generic Social History Tobacco Use Types Packs/Day Years Used Date Smoking Tobacco: Never Assessed [facility] Utilities Answer Date Recorded In the past 12 months has [employer] electric, gas, oil, or water [employer] threatened to shut off services in your [...] Assigned at Male 07/16/2023 9:17 AM EDT Legal Sex Male 3:02 AM EDT Gender Identity Male 07/16/2023 9:17 [...] documented as of this encounter Care Teams Rehabilitation Team Lead Relationship Specialty Start Date End Date Dannie Richard MD [address] [place] [address] [place] [address] PCP - General Internal Medicine 07/16/23 documented as of this encounter
--- OUTSIDE RECORDS SUMMARY | 2025-01-30 13:10 | XMS_ITS | Clinical Summary ---
Author Organization [facility] Address [address] [place] [address] Care Team Providers Care Instructional Technology Coordinator Name Role Phone Dannie Richard MD Primary Care Provider [phone]- [phone] Allergies Active Allergy Reactions Criticality Noted Date Comments Aspirin Unknown/Patient and Family Unable to Define Medium 07/16/2023 Glyburide Unknown/Patient and Family Unable to Define Medium 07/16/2023 Haloperidol Myalgia/Myositis/Arthralgia/Arthritis Medium 07/16/2023 Medications carbidopa-levodo pa (SINEMET) 25-100 MG per tablet Take 1 tablet by mouth 4 (four) times a day. 06/29/2023 Active fenofibrate (TRICOR) 145 MG tablet Take 1 tablet (145 mg total) by mouth daily. 06/30/2023 Active lisinopril (PRINIVIL,ZeSTRI L) 5 MG tablet Take 1 tablet (5 [...] nightly. 07/02/2023 Active predniSONE (DELTASONE) 10 MG tabletIndication s:Chronic obstructive pulmonary disease, unspecified COPD type (HCC) [...] Years Used Date Smoking Tobacco: Never Assessed [facility] Utilities Answer Date Recorded In the [...] place to sleep or slept in a senior care (including now)? No 07/17/2023 Sex and Gender [...] 80 07/22/2023 11:26 AM EDT Temperature 36.9 C (98.4 F) 07/22/2023 11:26 AM EDT Respiratory Rate 18 07/22/2023 11:26 AM EDT Oxygen Saturation 95% 07/22/2023 11:26 AM EDT Inhaled Oxygen Concentration - - Weight 75.5 kg (166 lb 7.2 oz) 07/22/2023 6:00 A M EDT Height 173 cm (5' 8.11 ) 07/16/2023 12:00 PM EDT Body Mass Index 25.23 07/16/2023 12:00 PM EDT Plan of Treatment Health Maintenance Due Date Last Done Comments Advance Care Planning 1960 Hepatitis C Virus Screening 1958 Foot Exam 1968 Lipid Panel 1968 Ophthalmology Exam 1968 Microalbumin/Creatinine Ratio Urine 1976 DTaP/Tdap/Td Vaccines (1 - Tdap) 1977 Pneumococcal Vaccines 50+ (1 of 2 - PCV) 1977 Colonoscopy 2003 Zoster (Shingles) Vaccine (1 of 2) 2008 RSV Vaccine 60 years and older and Patients (1 - Risk 60-74 years 1-dose series) 2018 Hemoglobin A1C 01/17/2024 07/17/2023 Creatinine with GFR 07/20/2024 07/21/2023, 07/20/2023, 07/19/2023, Additional history exists Influenza Vaccine 11/30/2024 COVID-19 Vaccine (1 - 2023- season) 2024 Hepatitis B Vaccines Aged Out No long [...] - 106 mg/dL 07/21/2023 7:33 AM EDT [facility] Comment:Fasting: <100 mg/dL, Non-Fasting: <200 mg/dL (ADA 2004) Blood Urea Nitrogen (BUN) 23 9 - 23 mg/dL 07/21/2023 7:33 AM EDT [facility] Creatinine 0.8 0.7 - 1.3 mg/dL 07/21/2023 7:33 AM EDT [facility] eGFR >90 >59 07/21/2023 7:33 AM EDT [facility] Comment:CKD-EPI (2020) in mL /min/1.73 sq meters. Sodium 134(L) 136 - 145 mmol/L 07/21/2023 7:33 AM EDT [facility] Potassium 3.5 3.4 - 4.5 mmol/L 07/21/2023 7:33 AM EDT [facility] Chloride 102 98 - 107 mmol/L 07/21/2023 7:33 AM EDT [facility] CO2 26 20 - 31 mmol/L 07/21/2023 7:33 AM EDT [facility] Anion Gap 6 5 - 15 07/21/2023 7:33 AM EDT [facility] Calcium 8.5(L) 8.7 - 10.5 mg/dL 07/21/2023 7:33 AM EDT [facility] BUN/Creatinine Ratio 29(H) 10.0 - 25.0 Ratio 07/21/2023 7:33 AM EDT [facility] Blood specimen (specimen) (Plasma/Serum) 07/21/2023 6:27 AM EDT 07/21/2023 6:53 AM EDT Brian Cunningham PA-C LAB BLOOD ORDERABLES Final R esult [facility] [address] [place] [address], * (ABNORMAL) Hemoglobin A1c with Estimated Average Glucose (07/17/2023 7:13 AM EDT) Hemoglobin A1C 6.1(H) <5.7 % 07/17/2023 4:50 PM EDT [facility] Comment: A1c% Interpretation 5.7 - 6.0 Increase risk of diabetes 6.1 - 6.4 Higher risk of diabetes > or = 6.5 Consistent with diabetes Diabetes Care, 33(Supp 1):S1-S61, 2010 Estimated Average Glucose 128 mg/dL 07/17/2023 4:50 PM EDT [facility] Blood specimen (specimen) Blood specimen / Unknown 07/17/2023 7:13 AM EDT 07/17/2023 7:51 AM EDT Brian Cunningham PA-C LAB BLOOD [place]AB[place] [address], [place] [address] from Last 3 Months or Most Recently Relevant to Health Maintenance Insurance MEDICARE PART A & B [facility] Advance Directives * Full Code (Latest Code Status on File) Date Activated Date Inactivated Comments 07/16/2023 9:32 AM Care Teams Instructional Technology Coordinator Relationship Specialty Start Date End Date Dannie Richard MD [address] [place] [address] [place] [address] PCP - General Internal Medicine 07/16/23
[2025-01-30 13:33] LABS: Hemoglobin A1C 148.5566 umol/L
[2025-01-30 13:35] LABS: Appearance Urine Clear; Glucose Urine UA Negative (Negative); PH 6.5 (5.0-9.0); Specific Gravity - Urine 1.015 (1.005-1.025)
[2025-01-30 13:42] LABS: Alanine Aminotransferase 20 U/L (0-40); Albumin Level 4.6 g/dL (3.5-5.0); Alkaline Phosphatase 32 U/L (39-117); Anion Gap 10 (12-20); Aspartate Amino Transferase 20 U/L (5-37); Blood Urea Nitrogen 11 mg/dL (9-16); Calcium 9.1 mg/dL (8.4-10.2); Carbon Dioxide 26 mmol/L (22-29); Chloride 105 mmol/L (96-108); Cholesterol 162 mg/dL (<200); Estimated Glomerular Filt Rate > 60; HDL Cholesterol 42 mg/dL (>40); Potassium 4.0 mmol/L (3.3-5.1); Sodium 137 mmol/L (135-145); Total Protein 7.1 g/dL (6.5-8.0); Triglycerides 70 mg/dL (<150)
[2025-01-30 14:20] LABS: Microalbum/Creatinine Ratio Ur 15.8 ug/mg cr (<30)
== END 2025-01-30 11:36 | disposition home or self-care (01) ==
LOC: HO.LAB 11:35
PROVIDERS: PCP Internal Medicine; Visit Provider Internal Medicine
DX: E11.9 Type 2 diabetes mellitus without complications (principal); E55.9 Vitamin D deficiency, unspecified; E78.00 Pure hypercholesterolemia, unspecified; D64.9 Anemia, unspecified; R30.0 Dysuria
CPT/HCPCS: 36415; 80053; 80061; 81003; 82043; 82306; 82570; 83036; 84443; 85025

== ENCOUNTER 2025-02-13 15:21 | Outpatient (AMB) | payer MEDICARE, MEDICAID, SELFPAY ==
--- NOTE | 2025-02-13 15:28 | MHC.OFFVIS ---
Intake Visit Reasons: 6mnth Allergies haloperidol (From HALDOL) Allergy (Intermediate, Verified 08/07/24 16:49) BODY STIFF aspirin (ASA) Allergy (Unknown, Verified 08/07/24 16:49) UNKNOWN glyburide (GLYBURIDE) Allergy (Unknown, Verified 08/07/24 16:49) UNKNOWN HPI Comments Details: 64 years old right-handed man with long h/o mental disorder with diagnosis of schizophrenia, DM, COPD, and parkinsonism. He was doing all right though sometime when he was anxious he had tremor. No new symptoms. [facility] Medical History (Updated 02/13/25 @ 15:34 by Lali Arrieta MD) BPH with lower urinary tract symptoms without urinary obstruction Parkinson's disease Primary osteoarthritis, right shoulder Vitamin D deficiency Mixed hyperlipidemia Obesity (BMI 30-39.9) Smoker Schizophrenia Hyponatremia Benign essential hypertension Diabetes mellitus Surgical History History of eye surgery Family History Father CVD (cardiovascular disease) Cancer Mother Cancer CVD (cardiovascular disease) Stroke Other Mental health problem Social History Housing: House Alcohol intake: former Patient Tobacco Use Status: Former Tobacco user Tobacco use type: Cigarette Cigarettes Per Day: 16 e-Cigarette/Vaping Use: Never Used Second Hand Smoke Exposure: Yes service: No Current occupational status: disabled Cognitive needs: Yes (Parkinson's disease) Hearing needs: No Vision needs: No Review of Systems Const Details: Constitutional:?No fever, chills, fatigue, weight loss, or night sweats. HEENT:?No headache, vision changes, hearing loss, nasal congestion, sore throat. Neurological:? Mild resting tremor. Psychiatric:?No anxiety, depression, mood swings, sleep disturbance, or hallucinations. Endocrine:?No heat/cold intolerance, polydipsia, polyuria, or hair/skin changes. Hematologic/Lymphatic:?No easy bruising, bleeding, or lymphadenopathy. Integumentary (Skin):?No rash, lesions, itching, or color changes. ? Physical Exam Neuro Other: Mental Status: Alert and oriented to person, place, and time. Normal attention. Normal spontaneous speech, fluency, and comprehension. No obvious issues with mood and memory. Affect is appropriate. Cranial Nerves: CN II: Visual dumont full to confrontation, visual acuity intact. CN III, IV, : Pupils equal, round, reactive to light and accommodation. Extraocular movements are normal. CN V: Facial sensation is normal. CN VII: Facial movements symmetrical. CN VIII: Hearing intact to bedside conversation is normal. CN IX, X: Palate elevates symmetrically. CN XI: Shoulder shrug and head turn symmetrical. CN XII: Tongue midline without atrophy or fasciculations. Extrapyramidal: Minimal resting hand tremor. Speech: Normal; no dysarthria or tremor. Assessment & Plan Assessment & Plan (1) Parkinsonism: Comment: MRI brain WO at [facility] in Apr 2021: mild MVD. 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
--- OUTSIDE RECORDS SUMMARY | 2025-02-13 18:58 | XMS_ITS | Encounter Summary ---
Author Organization [facility] Address [address] [place] [address] Care Team Providers Care Infrastructure Manager Name Role Phone Dannie Richard MD Primary Care Provider +1- [phone] Encounter Details Date Type Department Care Team ([facility] st Contact Info) Description 07/20/2023 Scanned Document [facility] 80 [facility] [address] [place] [id number] Provider, Generic Social History Tobacco Use Types Packs/Day Years Used Date Smoking Tobacco: Never Assessed [facility] Utilities Answer Date Recorded In the past 12 months has [employer] electric, gas, oil, or water [employer] threatened to shut off services in your [...] documented as of this encounter Care Teams Infrastructure Manager Relationship Specialty Start Date End Date Dannie Richard MD [address] [place] [address] [place] [address] PCP - General Internal Medicine 07/16/23 documented as of this encounter
--- OUTSIDE RECORDS SUMMARY | 2025-02-13 18:58 | XMS_ITS | Clinical Summary ---
Author Organization [facility] Address [address] [place] [address] Care Team Providers Care [employer] Hvac R Instructor Name Role Phone Dannie Richard MD Primary Care Provider +1- [phone] Allergies Active Allergy Reactions Criticality Noted Date [...] Used Date Smoking Tobacco: Never Assessed [facility] Utilities Answer Date Recorded In the past [...] place to sleep or slept in a fpc (including now)? No 07/17/2023 Sex and Gender [...] of 2 - PCV) 1977 Colonoscopy 2003 RSV Vaccine 50 years and older and Patients (1 - Risk 50-74 years 1-dose series) 2008 Zoster (Shingles) Vaccine (1 of 2) 2008 Hemoglobin A1C 01/17/2024 07/17/2023 Creatinine with GFR [...] - 106 mg/dL 07/21/2023 7:33 AM EDT [facility] Comment:Fasting: <100 mg/dL, Non-Fasting: <200 mg/dL (ADA 2004) Blood Urea Nitrogen (BUN) 23 9 - 23 mg/dL 07/21/2023 7:33 AM EDT [facility] Creatinine 0.8 0.7 - 1.3 mg/dL 07/21/2023 7:33 AM EDT [facility] eGFR >90 >59 07/21/2023 7:33 AM EDT [facility] Comment:CKD-EPI (2020) in mL /min/1.73 sq meters. Sodium 134(L) 136 - 145 mmol/L 07/21/2023 7:33 AM EDT [facility] Potassium 3.5 3.4 - 4.5 mmol/L 07/21/2023 7:33 AM EDT [facility] Chloride 102 98 - 107 mmol/L 07/21/2023 7:33 AM EDT [facility] CO2 26 20 - 31 mmol/L 07/21/2023 7:33 AM EDT [facility] Anion Gap 6 5 - 15 07/21/2023 7:33 AM EDT [facility] Calcium 8.5(L) 8.7 - 10.5 mg/dL 07/21/2023 7:33 AM EDT [facility] BUN/Creatinine Ratio 29(H) 10.0 - 25.0 Ratio 07/21/2023 7:33 AM EDT [facility] Blood specimen (specimen) (Plasma/Serum) 07/21/2023 6:27 AM EDT 07/21/2023 6:53 AM EDT Brian Cunningham PA-C LAB BLOOD ORDERABLES Final R esult [facility] [address] [place] [address], * (ABNORMAL) Hemoglobin A1c with Estimated Average Glucose (07/17/2023 7:13 AM EDT) Hemoglobin A1C 6.1(H) <5.7 % 07/17/2023 4:50 PM EDT [facility] Comment: A1c% Interpretation 5.7 - 6.0 Increase risk of diabetes 6.1 - 6.4 Higher risk of diabetes > or = 6.5 Consistent with diabetes Diabetes Care, 33(Supp 1):S1-S61, 2010 Estimated Average Glucose 128 mg/dL 07/17/2023 4:50 PM EDT [facility] Blood specimen (specimen) Blood specimen / Unknown 07/17/2023 7:13 AM EDT 07/17/2023 7:51 AM EDT Brian Cunningham PA-C LAB BLOOD [place]AB[place] [address], [place] [address] from Last 3 Months or Most Recently Relevant to Health Maintenance Insurance MEDICARE PART A & B [facility] Advance Directives * Full Code (Latest Code Status on File) Date Activated Date Inactivated Comments 07/16/2023 9:32 AM Care Teams [employer] Hvac R Instructor Relationship Specialty Start Date End Date Dannie Richard MD [address] [place] [address] [place] [address] PCP - General Internal Medicine 07/16/23
== END 2025-02-13 15:40 | disposition home or self-care (01) ==
LOC: HO.HSM 15:22
PROVIDERS: PCP Internal Medicine; Referring Provider Internal Medicine; Visit Provider Psychiatry & Neurology Neurology
DX: G21.8 Other secondary parkinsonism (principal)
CPT/HCPCS: 99214

== ENCOUNTER → 2025-02-13 15:21 | Outpatient (BNVA) | payer MEDICARE, MEDICAID, SELFPAY | PROVIDERS: PCP Internal Medicine; Referring Provider Internal Medicine; Visit Provider Psychiatry & Neurology Neurology | DX: G21.8 Other secondary parkinsonism (principal) | CPT/HCPCS: 99212 ==

== ENCOUNTER 2025-04-17 11:32 | Outpatient (REF) | payer MEDICARE, MEDICAID, SELFPAY ==
[2025-04-17 12:02] LABS: MANUAL DIFF FLAG NO
[2025-04-17 12:35] LABS: Hematocrit 38.3 % (42.0-52.0); Hemoglobin 13.3 g/dl (14.0-18.0); Imm Gran Abs Auto 0.02 X10*3/uL (0.00-0.03); Imm Gran Pct Auto 0.5 % (0.0-0.4); Lymphocytes Absolute Auto 1.0 X10*3/uL (1.2-4.9); Mean Corpuscular HGB Conc 34.7 g/dl (31.0-36.0); Mean Corpuscular Hemoglobin 31.4 pg (27.0-33.0); Mean Corpuscular Volume 90.3 fL (80.0-98.0); NRBC Abs Auto 0.000 X10*3/uL (0.0-0.012); NRBC Pct Auto 0.0 /100WBC (0.0-0.2); Platelet Count 195 X10*3/uL (160-400); Red Blood Count 4.24 X10*6/uL (4.60-5.80); White Blood Count 4.0 X10*3/uL (4.8-10.8)
[2025-04-17 12:39] LABS: Appearance Urine Clear; Glucose Urine UA Negative (Negative); PH 7.5 (5.0-9.0); Specific Gravity - Urine 1.015 (1.005-1.025)
[2025-04-17 13:07] LABS: Alanine Aminotransferase 22 U/L (0-40); Albumin Level 4.7 g/dL (3.5-5.0); Alkaline Phosphatase 36 U/L (39-117); Anion Gap 11 (12-20); Aspartate Amino Transferase 19 U/L (5-37); Blood Urea Nitrogen 12 mg/dL (9-16); Calcium 9.2 mg/dL (8.4-10.2); Carbon Dioxide 25 mmol/L (22-29); Chloride 99 mmol/L (96-108); Cholesterol 135 mg/dL (<200); Estimated Glomerular Filt Rate > 60; HDL Cholesterol 42 mg/dL (>40); Potassium 4.3 mmol/L (3.3-5.1); Sodium 131 mmol/L (135-145); Total Protein 7.4 g/dL (6.5-8.0); Triglycerides 86 mg/dL (<150)
[2025-04-17 13:34] LABS: Microalbum/Creatinine Ratio Ur 28.0 ug/mg cr (<30)
--- OUTSIDE RECORDS SUMMARY | 2025-04-17 15:13 | XMS_ITS | Encounter Summary ---
Author Organization [facility] Address [address] [place] [address] Care Team Providers Care Material Handler Floorperson Name Role Phone Dannie Richard MD Primary Care Provider +1- [phone] Encounter Details Date Type Department Care Team ([facility] st Contact Info) Description 07/20/2023 Scanned Document [facility] 80 [facility] [address] [place] [phone] Provider, Generic Social History Tobacco Use Types Packs/Day Years Used Date Smoking Tobacco: Never Assessed [facility] Utilities Answer Date Recorded In the past 12 months has [employer] electric, gas, oil, or water [employer] threatened to shut off services in your [...] place to sleep or slept in a fdc (including now)? No 07/17/2023 Sex and Gender [...] documented as of this encounter Care Teams Material Handler Floorperson Relationship Specialty Start Date End Date Dannie Richard MD [address] [place] [address] [place] [address] PCP - General Internal Medicine 07/16/23 documented as of this encounter
--- OUTSIDE RECORDS SUMMARY | 2025-04-17 15:13 | XMS_ITS | Clinical Summary ---
Author Organization [facility] Address [address] [place] [address] Care Team Providers Care Biological Lab Technician Name Role Phone Dannie Richard MD Primary Care Provider +1- [phone] Allergies Active Allergy Reactions Criticality Noted Date [...] Years Used Date Smoking Tobacco: Never Assessed [facility] Utilities Answer Date Recorded In the [...] place to sleep or slept in a correction (including now)? No 07/17/2023 Sex and Gender [...] Influenza Vaccine 11/30/2024 COVID-19 Vaccine (1 - 2024- season) 2024 Hepatitis B Vaccines Aged Out [...] - 106 mg/dL 07/21/2023 7:33 AM EDT [facility] Comment:Fasting: <100 mg/dL, Non-Fasting: <200 mg/dL (ADA 2004) Blood Urea Nitrogen (BUN) 23 9 - 23 mg/dL 07/21/2023 7:33 AM EDT [facility] Creatinine 0.8 0.7 - 1.3 mg/dL 07/21/2023 7:33 AM EDT [facility] eGFR >90 >59 07/21/2023 7:33 AM EDT [facility] Comment:CKD-EPI (2020) in mL /min/1.73 sq meters. Sodium 134(L) 136 - 145 mmol/L 07/21/2023 7:33 AM EDT [facility] Potassium 3.5 3.4 - 4.5 mmol/L 07/21/2023 7:33 AM EDT [facility] Chloride 102 98 - 107 mmol/L 07/21/2023 7:33 AM EDT [facility] CO2 26 20 - 31 mmol/L 07/21/2023 7:33 AM EDT [facility] Anion Gap 6 5 - 15 07/21/2023 7:33 AM EDT [facility] Calcium 8.5(L) 8.7 - 10.5 mg/dL 07/21/2023 7:33 AM EDT [facility] BUN/Creatinine Ratio 29(H) 10.0 - 25.0 Ratio 07/21/2023 7:33 AM EDT [facility] Blood specimen (specimen) (Plasma/Serum) 07/21/2023 6:27 AM EDT 07/21/2023 6:53 AM EDT Brian Cunningham PA-C LAB BLOOD ORDERABLES Final R esult [facility] [address] [place] [address], * (ABNORMAL) Hemoglobin A1c with Estimated Average Glucose (07/17/2023 7:13 AM EDT) Hemoglobin A1C 6.1(H) <5.7 % 07/17/2023 4:50 PM EDT [facility] Comment: A1c% Interpretation 5.7 - 6.0 Increase risk of diabetes 6.1 - 6.4 Higher risk of diabetes > or = 6.5 Consistent with diabetes Diabetes Care, 33(Supp 1):S1-S61, 2010 Estimated Average Glucose 128 mg/dL 07/17/2023 4:50 PM EDT [facility] Blood specimen (specimen) Blood specimen / Unknown 07/17/2023 7:13 AM EDT 07/17/2023 7:51 AM EDT Brian Cunningham PA-C LAB [place]OD [place] [address], [place] [address] from Last 3 Months or Most Recently Relevant to Health Maintenance Insurance MEDICARE PART A & B [facility] Advance Directives * Full Code (Latest Code Status on File) Date Activated Date Inactivated Comments 07/16/2023 9:32 AM Care Teams Biological Lab Technician Relationship Specialty Start Date End Date Dannie Richard MD [address] [place] [address] [place] [address] PCP - General Internal Medicine 07/16/23
== END 2025-04-17 11:33 | disposition home or self-care (01) ==
LOC: HO.LAB 11:32
PROVIDERS: PCP Internal Medicine; Visit Provider Internal Medicine
DX: E11.9 Type 2 diabetes mellitus without complications (principal); E78.00 Pure hypercholesterolemia, unspecified; D64.9 Anemia, unspecified; E55.9 Vitamin D deficiency, unspecified; R30.0 Dysuria
CPT/HCPCS: 36415; 80053; 80061; 81003; 82043; 82306; 82570; 83036; 84443; 85025

== ENCOUNTER 2025-04-19 16:24 | Outpatient (AMB) | payer MEDICARE, MEDICAID, SELFPAY ==
[2025-04-19 16:40] VITALS: BP 140/82; PULSE 80; O2SAT 97; BMI 28.1
--- NOTE | 2025-04-19 16:40 | A.OFFPC_ITS ---
Vital Signs 04/19/25 16:40 Height 5 ft 10 in Weight 196 lb 2 oz BMI 28.1 BP 140/82 H Blood Pressure Location Lt brachial Position Sitting Pulse 80 Pulse Source Pulse Oximeter Pulse Oximetry (%) 97 Oxygen Delivery Method Room Air Intake Visit Reasons: follow up [employer] Room Attendant Required: No Accompanied by: Self / Same As Patient Allergies haloperidol (From HALDOL) Allergy (Intermediate, Verified 04/19/25 17:02) BODY STIFF aspirin (ASA) Allergy (Unknown, Verified 04/19/25 17:02) UNKNOWN glyburide (GLYBURIDE) Allergy (Unknown, Verified 04/19/25 17:02) UNKNOWN Medication List - Last Reconciled 04/19/25 by Dannie Richard MD carbidopa-levodopa 25-100 mg 1 tab PO TID cholecalciferol (vitamin D3) 25 mcg PO DAILY fenofibrate nanocrystallized 145 mg PO DAILY 90 days lisinopril 5 mg PO DAILY 90 days omega-3 fatty acids (Fish Oil Concentrate) 1,000 mg PO TID risperidone 3 mg PO QAM sitagliptin phosphate (Januvia) 50 mg PO DAILY 90 days terazosin 1 mg PO BEDTIME 90 days Tobacco use date assessed: 04/19/25 Fall risk assessment: No Falls in past year Last assessed Fall Risk: 04/19/25 Dental Screening Dental Screen Date: 04/19/25 Did you have a dental visit in the last 12 months?: No Did you have a dental problem in the last 6 months where you did not have access to dental care?: No Was dental information given to patient?: No HPI follow up HPI Details Patient comes in today for his follow up visit States that he feels okay He denies any headaches or dizziness Denies any chest pains, no SOB No nausea/vomiting, no abdominal pain No change in bowel habits noted He was seen by Dr. Arrieta for neurology follow up a couple of months ago and had patient continue on his current medication at the same dose for his Parkinson's disease He had his follow up labs done a couple of days ago - to discuss his results [facility] Medical History (Updated 04/19/25 @ 19:20 by Dannie Richard MD) Overweight (BMI 25.0-29.9) BPH with lower urinary tract symptoms without urinary obstruction Parkinson's disease Primary osteoarthritis, right shoulder Vitamin D deficiency Mixed hyperlipidemia Obesity (BMI 30-39.9) Smoker Schizophrenia Hyponatremia Benign essential hypertension Diabetes mellitus Surgical History History of eye surgery Family History Father CVD (cardiovascular disease) Cancer Mother Cancer CVD (cardiovascular disease) Stroke Other Mental health problem Social History Housing: House Alcohol intake: former Patient Tobacco Use Status: Former Tobacco user Tobacco use type: Cigarette Cigarettes Per Day: 16 e-Cigarette/Vaping Use: Never Used Second Hand Smoke Exposure: Yes service: No Current occupational status: disabled Cognitive needs: Yes (Parkinson's disease) Hearing needs: No Vision needs: No Questionnaire PHQ-9 Over the last 2 weeks, how often have you been bothered by any of the following problems? 1. Little interest or pleasure in doing things: not at all 2. Feeling down, depressed, or hopeless: not at all 3. Trouble falling or staying asleep, or sleeping too much: not at all 4. Feeling tired or having little energy: not at all 5. Poor appetite or overeating: not at all 6. Feeling bad about yourself - or that you are a failure or have let yourself or your family down: not at all 7. Trouble concentrating on things, such as reading the newspaper or watching television: not at all 8. Moving or speaking so slowly that other people could have noticed. Or the opposite - being so fidgety or restless that you have been moving around a lot more than usual: not at all 9. Thoughts that you would be better off or of hurting yourself in some way: not at all Total score: 0 Depression Screening Interpretation: Negative Depression Screening Done: Yes 87916 - PHQ-9 Billing: Yes Source: Developed by Drs. Be Ortiz, Rubina Kuhn, Adeel Mccall and colleagues, with an educational annia from [employer]. Thrive Questionnaire Date Thrive assessed: 04/19/25 I am a: Patient What is your living situation today?: I have a steady place to live Within the past 12 months, did the food you bought not last and you didn't have the money to get more?: Never true Within the past 12 months, did you worry whether your food would run out before you got money to buy more?: Never true Do you have trouble paying for medicines?: No Do you have trouble getting transportation to medical appointments?: No Do you have trouble paying your heating and electricity bill?: No Do you have trouble taking care of your child, family member or friend?: No Do you have trouble with day-to-day activities such as bathing, preparing meals, shopping, managing finances, etc.?: No Are you currently unemployed and looking for a job?: No Are you interested in more education?: No Please select the resources that you would like help with: None Currently or been in a relationship where the following occur: No concerns reported THRIVE Score: 0 AUDIT C Alcohol Use Questionnaire (AUDIT-C) 1. How often do you have a drink containing alcohol?: Never 3. How often do you have six or more drinks on one occasion?: Never Total Score: 0 Score Reviewed/Action Taken: Yes CYNTHIA-7 AMB Questionnaire CYNTHIA-7 Date CYNTHIA - 7 assessed: 04/19/25 Feeling nervous, anxious, or on edge: 0 = Not at all Not being able to stop or control worryin = Not at all Worrying too much about different things: 0 = Not at all Trouble relaxin = Not at all Being so restless that it is hard to sit still: 0 = Not at all Becoming easily annoyed or irritable: 0 = Not at all Feeling afraid as if something awful might happen: 0 = Not at all Total CYNTHIA-7 score (0-4 normal; 5-9 mild; 10-14 moderate; 15-21 severe): 0 Source: Developed by Drs. Be Ortiz, Rubina Kuhn, Adeel Mccall and colleagues, with an educational annia from [employer]. Review of Systems Const Denies chills, Denies fatigue, Denies fever(s) and Denies headache(s) ENT Denies dysphagia, Denies dizziness, Denies otalgia, Denies headache(s), Denies neck pain, Denies odynophagia and Denies sore throat Card Denies chest pain, Denies palpitations and Denies dyspnea Resp Denies chest congestion, Denies cough and Denies dyspnea GI Denies abdominal pain, Denies constipation, Denies dysphagia, Denies heartburn, Denies diarrhea, Denies nausea, Denies odynophagia and Denies vomiting Denies difficulty urinating, Denies dysuria, Reports nocturia (at times) and Reports urinary frequency Musc Denies arthralgias, Denies neck pain and Reports stiffness Skin/Breast Denies rash Neuro Denies dizziness, Denies headache(s) and Reports tremor(s) (due to Parkinson's) Endo Denies fatigue and Denies palpitations Physical exam (Primary Care) Vital Signs: Last Vital Signs Pulse 80 04/19/25 16:40 BP 140/82 H 04/19/25 16:40 Pulse Ox 97 04/19/25 16:40 Oxygen Delivery Method Room Air 04/19/25 16:40 BMI result Body Mass Index 28.1 Tobacco/Smoking Status: Tobacco use Status Tobacco use date assessed 04/19/25 04/19/25 16:46 Patient Tobacco Use Status Former Tobacco user 04/19/25 16:46 Tobacco use type Cigarette 04/19/25 16:46 e-Cigarette/Vaping Use Never Used 04/19/25 16:46 PHQ-9: PHQ-9 Score PHQ-9: Total score 0 04/19/25 17:02 Depression Screening Interpretation: Negative Thrive Assessment: Date of Thrive Assessment Date Thrive assessed 04/19/25 04/19/25 16:46 Currently or been in a relationship where the following occur: No concerns reported Const General: no acute distress and alert HENMT Ears: TM's normal bilaterally and EAC's normal Throat: Yes posterior oropharynx normal and Yes tonsils normal (no TP congestion) Neck Neck: Yes supple and No lymphadenopathy Thyroid: Thyroid normal Resp Auscultation: clear to auscultation bilaterally, no rales and no wheezes Cardio Rate: regular rate Rhythm: regular rhythm Heart sounds: no murmurs GI Palpation (GI): Soft to palpation and nontender Auscultation: normal bowel sounds General: Yes no CVA tenderness Back/Spine/Pelvis Back: no CVA tenderness Thoracic/Lumbar Spine: No lumbar spinal tenderness Skin Rashes: no rashes Neuro Other: (+) multiple large varicosities noted over both lower extremities Motor exam (neuro): Tremors during motor activity present (in both hands) Extrem General: Yes no clubbing, cyanosis or edema Results Reviewed Results Reviewed: Laboratory Tests 04/17/25 04/17/25 11:55 12:01 WBC 4.0 L Hgb 13.3 L Hct 38.3 L Plt Count 195 Sodium 131 L Potassium 4.3 Creatinine 0.86 Estimated GFR > 60 Fasting Glucose 141 H Hemoglobin A1c % 6.3 H Calcium 9.2 AST 19 ALT 22 Triglycerides 86 Cholesterol 135 LDL Cholesterol, Calc 76 HDL Cholesterol 42 TSH 0.53 Ur Specific [place] 1.015 Urine Protein Negative Urine Glucose (UA) Negative Urine Blood Negative Urine Nitrite Negative Ur Leukocyte Esterase Negative Microalb/Creat Ratio 28.0 Coding Level of Care Code Est Pt Level 4 (22707) Diagnoses Type 2 diabetes mellitus without complication, without long-term current use of insulin E11.9 Diabetes mellitus complication status: without complication Diabetes mellitus rodent exterminator insulin use: without rodent exterminator use Diabetes mellitus type: type 2 Benign essential hypertension I10 Mixed hyperlipidemia E78.2 Parkinson's disease without dyskinesia or fluctuating manifestations G20.A1 Dyskinesia presence: without dyskinesia Fluctuating manifestations: without fluctuating manifestations Hyponatremia E87.1 Primary osteoarthritis, right shoulder M19.011 Vitamin D deficiency E55.9 Varicose veins of both lower extremities without ulcer or inflammation I83.93 Laterality: bilateral BPH with lower urinary tract symptoms without urinary obstruction N40.1 Schizophrenia, unspecified type F20.9 Schizophrenia type: unspecified Smoker F17.200 Overweight (BMI 25.0-29.9) E66.3 Additional Codes PHQ-9 - 76564 - PHQ-9 Billing: Yes ([id number]) Assessment & Plan Assessment & Plan (1) Diabetes mellitus: Code(s): E11.9 - Type 2 diabetes mellitus without complications Category: Medical Qualifiers: Diabetes mellitus complication status: without complication Diabetes mellitus custodial insulin use: without rodent exterminator use Diabetes mellitus type: type 2 Qualified Code(s): E11.9 - Type 2 diabetes mellitus without complications Plan: His HgbA1c was at 6.3% on his labs done a couple of days ago (was previously at 6.2% a couple of months ago in January 2025) - goal is < 7.0% Reinforced diabetic diet Patient states that he has been taking/using a lot of cough drops over the past month since he tested positive for influenza last month and this is likely the reason his blood sugar is higher than previous Continue Januvia 50 mg QD (2) Benign essential hypertension: Code(s): I10 - Essential (primary) hypertension Category: Medical Plan: Reinforced low-sodium diet -? goal is systolic BP of 120 mm or less Continue Lisinopril 5 mg?QD (3) Mixed hyperlipidemia: Code(s): E78.2 - Mixed hyperlipidemia Category: Medical Plan: Results of his labs done a couple of days ago reviewed and discussed with patient Reinforced low cholesterol diet Continue Fenofibrate 145 mg QD and Fish oil capsules 1000 mg TID Will recheck his labs and fasting lipids in 4 months for follow-up (4) Parkinson's disease: Comment: MRI brain WO at [facility] in Apr 2021: mild MVD. Code(s): G20 - Parkinson's disease Category: Medical Qualifiers: Dyskinesia presence: without dyskinesia Fluctuating manifestations: without fluctuating manifestations Qualified Code(s): G20.A1 - Parkinson's disease without dyskinesia, without mention of fluctuations Plan: MRI of the brain done in 04/2021 revealed very mild chronic white matter microangiopathic changes and generalized parenchymal volume loss, with no acute findings Continue Carbidopa-Levodopa 25-100 mg TID Follow-up with neurology as scheduled (5) Hyponatremia: Code(s): E87.1 - Hypo-osmolality and hyponatremia Category: Medical Plan: His serum sodium level is again slightly low at 131 on his labs done a couple of days ago Serum osmolality checked previously was normal Will continue to monitor his serum electrolyte levels closely (6) Primary osteoarthritis, right shoulder: Code(s): M19.011 - Primary osteoarthritis, right shoulder Category: Medical Plan: X-rays of the right shoulder done a few years ago in 12/2020 revealed (+) moderate OA changes Patient states that his shoulder pain has subsided and has not been bothering him too much lately Will consider referring him to orthopedics if his shoulder pain flares up again (7) Vitamin D deficiency: Code(s): E55.9 - Vitamin D deficiency, unspecified Category: Medical Plan: Continue Vitamin D3 1000 units QD (8) Varicose veins of lower extremities without ulcer or inflammation: Code(s): I83.90 - Asymptomatic varicose veins of unspecified lower extremity Category: Medical Qualifiers: Laterality: bilateral Qualified Code(s): I83.93 - Asymptomatic varicose veins of bilateral lower extremities Plan: Patient reports (+) pain in his legs and over the varicosities on his legs at times but states that his symptoms are mostly mild Have offered in the past and again today to refer him to vascular surgery but patient declined referral; states that he will call for referral if his symptoms get worse (9) BPH with lower urinary tract symptoms without urinary obstruction: Code(s): N40.1 - Benign prostatic hyperplasia with lower urinary tract symptoms Category: Medical Plan: Continue Terazosin 1 mg Q HS (10) Schizophrenia: Code(s): F20.9 - Schizophrenia, unspecified Category: Medical Qualifiers: Schizophrenia type: unspecified Qualified Code(s): F20.9 - Schizophrenia, unspecified Plan: Continue Risperidone at 3 mg Q AM Follow-up with Psychiatry as scheduled (11) Smoker: Code(s): F17.200 - Nicotine dependence, unspecified, uncomplicated Category: Social Hx Plan: Patient is counseled again on complete smoking cessation (12) Overweight (BMI 25.0-29.9): Code(s): E66.3 - Overweight Category: Medical Plan: Reinforced diet/exercise as tolerated/lose weight Plan Follow up in 4 months Orders: Orders Complete Blood Count Auto Diff 4 Months D64.9 - Anemia, unspecified Comprehensive [place]. Panel Fast 4 Months E78.00 - Pure hypercholesterolemia, unspecified TSH reflex Free T4 4 Months E78.00 - Pure hypercholesterolemia, unspecified UA CC w/rflx Micro + Cult 4 Months R30.0 - Dysuria Vitamin D 25-OH Total 4 Months E55.9 - Vitamin D deficiency, unspecified Lipid Panel 4 Months E78.00 - Pure hypercholesterolemia, unspecified Microalbumin, Random (w Creat) 4 Months E11.9 - Type 2 diabetes mellitus without complications Hemoglobin A1c 4 Months E11.9 - Type 2 diabetes mellitus without complications Vitamin B12 and Folate 4 Months E53.8 - Deficiency of other specified B group vitamins
--- OUTSIDE RECORDS SUMMARY | 2025-04-19 16:47 | XMS_ITS | Clinical Summary ---
Author Organization [facility] Address [address] [place] [address] Care Team Providers Care Blade Boner Name Role Phone Dannie Richard MD Primary Care Provider [phone]- [phone] Allergies Active Allergy Reactions Criticality Noted Date [...] place to sleep or slept in a longterm (including now)? No 07/17/2023 Sex and Gender [...] 07/21/2023 7:33 AM EDT [facility] Comment:Fasting: <100 mg/dL, Non-Fasting: <200 mg/dL (ADA 2004) Blood Urea Nitrogen (BUN) 23 9 - 23 mg/dL 07/21/2023 7:33 AM EDT [facility] Creatinine 0.8 0.7 - 1.3 mg/dL 07/21/2023 7:33 AM EDT [facility] eGFR >90 >59 07/21/2023 7:33 AM EDT [facility] Comment:CKD-EPI (2020) in mL /min/1.73 sq meters. Sodium 134(L) 136 - 145 mmol/L 07/21/2023 7:33 AM EDT [facility] Potassium 3.5 3.4 - 4.5 mmol/L 07/21/2023 7:33 AM EDT [facility] Chloride 102 98 - 107 mmol/L 07/21/2023 7:33 AM EDT [facility] CO2 26 20 - 31 mmol/L 07/21/2023 7:33 AM EDT [facility] Anion Gap 6 5 - 15 07/21/2023 7:33 AM EDT [facility] Calcium 8.5(L) 8.7 - 10.5 mg/dL 07/21/2023 7:33 AM EDT [facility] BUN/Creatinine Ratio 29(H) 10.0 - 25.0 Ratio 07/21/2023 7:33 AM EDT [facility] Blood specimen (specimen) (Plasma/Serum) 07/21/2023 6:27 AM EDT 07/21/2023 6:53 AM EDT Brian Cunningham PA-C LAB BLOOD ORDERABLES Final R esult [facility] [address] [place] [address], * (ABNORMAL) Hemoglobin A1c with Estimated Average Glucose (07/17/2023 7:13 AM EDT) Hemoglobin A1C 6.1(H) <5.7 % 07/17/2023 4:50 PM EDT [facility] Comment: A1c% Interpretation 5.7 - 6.0 Increase risk of diabetes 6.1 - 6.4 Higher risk of diabetes > or = 6.5 Consistent with diabetes Diabetes Care, 33(Supp 1):S1-S61, 2010 Estimated Average Glucose 128 mg/dL 07/17/2023 4:50 PM EDT [facility] Blood specimen (specimen) Blood specimen / Unknown 07/17/2023 7:13 AM EDT 07/17/2023 7:51 AM EDT Brian Cunningham PA-C LAB BLOOD ORDERABLES [place] [address], [place] [address] from Last 3 Months or Most Recently Relevant to Health Maintenance Insurance MEDICARE PART A & B [facility] Advance Directives * Full Code (Latest Code Status on File) Date Activated Date Inactivated Comments 07/16/2023 9:32 AM Care Teams Blade Boner Relationship Specialty Start Date End Date Dannie Richard MD [address] [place] [address] [place] [address] PCP - General Internal Medicine 07/16/23
--- OUTSIDE RECORDS SUMMARY | 2025-04-19 16:47 | XMS_ITS | Encounter Summary ---
Author Organization [facility] Address [address] [place] [address] Care Team Providers Care Market Master Name Role Phone Dannie Richard MD Primary Care Provider [phone]- [phone] Encounter Details Date Type Department Care Team ([facility] st Contact Info) Description 07/20/2023 Scanned Document [facility] [address] [facility] [address] [place] [id number] Provider, Generic Social History Tobacco Use Types Packs/Day Years Used Date Smoking Tobacco: Never Assessed [facility] Utilities Answer Date Recorded In the past 12 months has [employer], gas, oil, or water Circle threatened to shut off services in your [...] place to sleep or slept in a halfway (including now)? No 07/17/2023 Sex and Gender [...] documented as of this encounter Care Teams Market Master Relationship Specialty Start Date End Date Dannie Richard MD [address] [place] [address] [place] [id number] PCP - General Internal Medicine 07/16/23 documented as of this encounter
== END 2025-04-19 17:13 | disposition home or self-care (01) ==
LOC: HO.HMCH 16:24
PROVIDERS: PCP Internal Medicine; Visit Provider Internal Medicine
DX: E11.9 Type 2 diabetes mellitus without complications (principal); G20.A1 Parkinson's disease without dyskinesia, without mention of fluctuations; F20.9 Schizophrenia, unspecified; E66.3 Overweight; Z68.28 Body mass index [BMI] 28.0-28.9, adult; I10 Essential (primary) hypertension; E78.2 Mixed hyperlipidemia; E87.1 Hypo-osmolality and hyponatremia; M19.011 Primary osteoarthritis, right shoulder; E55.9 Vitamin D deficiency, unspecified; I83.93 Asymptomatic varicose veins of bilateral lower extremities; N40.1 Benign prostatic hyperplasia with lower urinary tract symptoms; F17.200 Nicotine dependence, unspecified, uncomplicated

== ENCOUNTER → 2025-04-19 16:24 | Outpatient (BNVA) | payer MEDICARE, MEDICAID, SELFPAY | PROVIDERS: PCP Internal Medicine; Visit Provider Internal Medicine | DX: I10 Essential (primary) hypertension (principal); E11.9 Type 2 diabetes mellitus without complications; G20.A1 Parkinson's disease without dyskinesia, without mention of fluctuations; E78.2 Mixed hyperlipidemia; E87.1 Hypo-osmolality and hyponatremia; M19.011 Primary osteoarthritis, right shoulder; E55.9 Vitamin D deficiency, unspecified; I83.93 Asymptomatic varicose veins of bilateral lower extremities; N40.1 Benign prostatic hyperplasia with lower urinary tract symptoms; F20.9 Schizophrenia, unspecified; F17.200 Nicotine dependence, unspecified, uncomplicated; E66.3 Overweight; Z13.31 Encounter for screening for depression; Z13.39 Encounter for screening examination for other mental health and behavioral disorders; Z79.899 Other long term (current) drug therapy | CPT/HCPCS: 96127; 99212 ==